=== PATIENT | female | born 2000 | race Caucasian/White ===

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

== ENCOUNTER 2024-03-14 12:33 | Outpatient (AMB) | payer BC, SELFPAY ==
[2024-03-14 12:43] VITALS: BP 120/72; PULSE 116; TEMP 36.8; O2SAT 100
--- NOTE | 2024-03-14 12:43 | AM.OFFWIN_ITS ---
Intake Vital Signs 03/14/24 12:43 Height 5 ft 2 in BP 120/72 Blood Pressure Location Lt brachial Position Sitting Pulse 116 H Pulse Source Pulse Oximeter Temp 98.2 F Temp Source Oral Pulse Oximetry (%) 100 Oxygen Delivery Method Room Air Intake Visit Reasons: sore throat, runny nose, possible Covid Intake Note: pt is here for sore throat, runny nose. 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 She states that last night she started having stomach pains and then had an episode of diarrhea and then when she woke up this morning to sore throat, developed headache and body aches. The daycare center she works at send her home and asked her to go to a medical facility and get tested for COVID. She denies any fevers or cough. She did not take any medications to try and make herself feel better. She states she does have a history of asthma but she has had no trouble breathing, or experienced any shortness of breath. She does have an inhaler if she needs one. [facility] Medical History Asthma Hyperthyroidism IIH (idiopathic intracranial hypertension) Social History Patient Tobacco Use Status: Never used Tobacco Review of Systems Const All systems reviewed & are unremarkable except as noted in HPI and below Physical Exam Vital Signs: Last Vital Signs Temp 98.2 F 03/14/24 12:43 Pulse 116 H 03/14/24 12:43 BP 120/72 03/14/24 12:43 Pulse Ox 100 03/14/24 12:43 Oxygen Delivery Method Room Air 03/14/24 12:43 Const General: cooperative, healthy appearing, comfortable and no acute distress Orientation/consciousness: patient oriented x3 Limitations: no limitations HEENT Head: Yes normal to inspection Ears: hearing grossly normal bilaterally and external ears normal General nose exam: Normal external nose present, Normal nares present and No nasal discharge present Face and sinus: Yes normal facial exam Mouth: Normal oral and palatal mucosa present and moist mucous membranes Throat: Yes tonsils normal, Yes uvula midline and Yes posterior oropharynx abnormal (Erythema) Eyes General: appearance normal, both eyes and all related structures Neck Neck: Yes normal visual inspection Resp Effort & Inspection: normal respiratory effort, able to speak in complete sentences, Actively coughing, no respiratory distress, not tachypneic, no tripod positioning and no use of accessory muscles Skin General skin exam: no rashes or lesions noted Neuro General: patient oriented x3 Extrem General: Yes normal to inspection and Yes no clubbing, cyanosis or edema Assessment & Plan Assessment & Plan (1) URI (upper respiratory infection): Code(s): J06.9 - Acute upper respiratory infection, unspecified Qualifiers: URI type: unspecified viral URI Qualified Code(s): J06.9 - Acute upper respiratory infection, unspecified Plan: Recommended taking the next 3 days off of work so patient can feel better before she returns to the daycare, if she is COVID positive we can extend that to 5 days. Recommended using [id number] medications to treat her symptoms. Plan See above Orders: Orders SARS-CoV2/FLU/RSV Today J06.9 - Acute upper respiratory infection, unspecified Medications: Discontinued cephalexin Discontinued Reason: Patient Completed Course 500 mg PO Q6H 7 days 28 caps 0RF Coding Level of Care Code New Pt Level 3 (29113) Diagnoses Viral upper respiratory tract infection J06.9 URI type: unspecified viral URI
== END 2024-03-14 13:11 | disposition home or self-care (01) ==
PROVIDERS: PCP Pediatrics; Visit Provider Physician Assistant
DX: Z13.9 Encounter for screening, unspecified (principal); J06.9 Acute upper respiratory infection, unspecified
CPT/HCPCS: 87880; 99203

== ENCOUNTER 2024-03-14 13:03 | Outpatient (REF) | payer BC, SELFPAY ==
[2024-03-14 16:47] LABS: Influenza A PCR NEGATIVE (Negative); Influenza B PCR NEGATIVE (Negative); Resp Syncy Virus RNA Qual PCR NEGATIVE (Negative); SARS COV2 PCR INHOUSE NEGATIVE (Negative)
== END 2024-03-14 13:04 | disposition home or self-care (01) ==
LOC: HO.LAB 13:03
PROVIDERS: Visit Provider Physician Assistant
DX: J06.9 Acute upper respiratory infection, unspecified (principal)
CPT/HCPCS: 0241U

== ENCOUNTER 2024-03-27 21:05 | Emergency (ER) | payer BC, SELFPAY ==
[2024-03-27 21:23] VITALS: BP 152/103; PULSE 108; RESP 18; TEMP 36.8; O2SAT 98; BMI 36.6
[2024-03-27 21:45] LABS: MANUAL DIFF FLAG NO
[2024-03-27 21:47] LABS: Basophils Percent Auto 0.3 % (0-2); Eosinophils Absolute Auto 0.1 X10*3/uL (0.0-0.4); Eosinophils Percent Auto 0.5 % (0-4); Hematocrit 37.3 % (37.0-47.0); Hemoglobin 12.8 g/dl (12.0-16.0); Imm Gran Abs Auto 0.03 X10*3/uL (0.00-0.03); Imm Gran Pct Auto 0.3 % (0.0-0.4); Lymphocytes Absolute Auto 3.7 X10*3/uL (1.2-4.9); Lymphocytes Percent Auto 33.2 % (20-40); Mean Corpuscular HGB Conc 34.3 g/dl (31.0-35.0); Mean Corpuscular Volume 84.6 fL (80.0-98.0); Mean Platelet Volume 8.7 fL (9.4-12.3); Monocytes Absolute Auto 0.9 X10*3/uL (0.1-1.2); Neutrophils Absolute Auto 6.4 x10*3/uL (2.0-8.3); Neutrophils Percent Auto 57.7 % (45-73); Platelet Count 429 X10*3/uL (160-400); Red Blood Count 4.41 X10*6/uL (4.20-5.50); Red Cell Distribution Width 12.5 % (11.0-16.0); White Blood Count 11.2 X10*3/uL (4.8-10.8)
[2024-03-27 21:50] LABS: Appearance Urine Turbid; Color Urine Dark Yellow; Glucose Urine UA Negative (Negative); Leukocyte Esterase Urine Small (1+) (Negative); Nitrite Urine Negative (Negative); Specific Gravity - Urine >= 1.030 (1.005-1.025); UMIC TRIGGER UA YES; Urine Blood Large (3+) (Negative); Urine Ketones Trace mg/dL (Negative); Urine Protein 30 (1+) mg/dL (Neg-Trace)
[2024-03-27 22:02] LABS: Alanine Aminotransferase 16 U/L (0-31); Albumin Level 4.6 g/dL (3.5-5.0); Alkaline Phosphatase 60 U/L (39-117); Anion Gap 11 (12-20); Aspartate Amino Transferase 14 U/L (5-31); Bilirubin Total 0.4 mg/dL (0.0-1.0); Blood Urea Nitrogen 6 mg/dL (9-16); Calcium 9.9 mg/dL (8.4-10.2); Carbon Dioxide 21 mmol/L (22-29); Chloride 110 mmol/L (96-108); Creatinine Clr Calc Pharmacy 135.1; Estimated Glomerular Filt Rate > 60; Glucose Random 118 mg/dL (60-115); Potassium 3.3 mmol/L (3.3-5.1); Sodium 139 mmol/L (135-145); Total Protein 7.5 g/dL (6.5-8.0)
[2024-03-27 22:19] LABS: UPreg QC Valid YES; Urine Pregnancy NEGATIVE (NEGATIVE)
[2024-03-27 22:32] LABS: Bacteria Urine Trace (None Seen); Calcium Oxalate Crystals Urine Present; Hyaline Casts Urine 0-2 /LPF (0-2); RBC Urine >20 /HPF (0-2)
[2024-03-28 00:57] VITALS: BP 145/94; PULSE 65; RESP 16; TEMP 36.8; O2SAT 100
[2024-03-28 02:00] VITALS: BP 113/63; PULSE 85; RESP 16; TEMP 36.7; O2SAT 99
[2024-03-28 03:34] VITALS: BP 131/80; PULSE 79; RESP 18; TEMP 36.7; O2SAT 99
[2024-03-28 06:00] VITALS: BP 125/72; PULSE 95; RESP 16; TEMP 36.9; O2SAT 100
--- NOTE | 2024-03-28 06:32 | ED.ABDPAIN ---
HPI - Abdominal Pain General Chief Complaint: Abdominal Pain Stated Complaint: stomach pain/constipation Time Seen by Provider: 03/28/24 06:28 Source: patient Mode of arrival: ambulatory Limitations: no limitations History of Present Illness ED Provider: Divya Santos PA-C HPI narrative: 23 yo female with history of heavy and painful menstrual cycles who presents to the ER for evaluation of lower abdominal cramping for the last 4 days along with constipation x1 week. Patient states she has had her menstrual cycle for 2 weeks now. She was seen at a [place] emergency department on Tuesday when her cramping pain started. She had lab work done and a pelvic ultrasound which she states were unremarkable. She was told to take ibuprofen for her menstrual cramping. She has been trying to follow-up with OBGYN but can not get in until she has a PCP referral, does not see her PCP until October. She reports very irregular, heavy and painful menstrual cycles. She has a Nexplanon in her left arm which she is due to get removed soon. Patient reports the cramping comes and goes. She denies any vaginal discharge. She gets nauseous when the pain is severe. No vomiting. Patient also reports she has not had a normal bowel movement in 1 week. She had very small amount after taking 4 Dulcolax yesterday. She tried to manually disimpact herself but there was no stool in her rectal vault. MD elicited complaint: abdominal pain Pertinent past history: constipation and other (Heavy menstrual cycle) Onset (ago): day(s) (4) Pain Consistency: intermittent Location: suprapubic Quality: cramping Radiation: none Exacerbating factors: movement Relieving factors: medication and rest Context: history of similar episodes Associated symptoms: nausea and constipation Treatments prior to arrival: NSAIDs Related Data Date of Last Menstrual Period: 03/14/24 Patient : No Allergies Allergy/AdvReac Type Severity Reaction Status Date / Time No Known Allergies Allergy Verified 03/27/24 21:24 Review of Systems Review of Systems Yes all other systems are reviewed and are negative [facility] Past Medical History Medical History Asthma Hyperthyroidism IIH (idiopathic intracranial hypertension) Date of Last Menstrual Period: 03/14/24 Social History Social History Patient Tobacco Use Status: Never used Tobacco Smoked in Last 30 Days: No Use of substances other than those prescribed or required for medical reasons: No Advance Directives: No Advance Directives Information Provided: No Do you have a plan to hurt others: No Plan Patient : No Physical Exam ED Vital Signs: Vital Signs - 24 hr 03/27/24 21:23 03/28/24 00:57 03/28/24 02:00 Temperature 98.2 F 98.3 F 98.0 F Pulse Rate 108 H 65 85 Respiratory Rate 18 16 16 Blood Pressure 152/103 H 145/94 H 113/63 Pulse Oximetry 98 100 99 Oxygen Delivery Method Room Air Room Air Room Air 03/28/24 03:34 03/28/24 06:00 03/28/24 08:00 Temperature 98.0 F 98.5 F 98.9 F Pulse Rate 79 95 61 Respiratory Rate 18 16 18 Blood Pressure 131/80 125/72 123/77 Pulse Oximetry 99 100 98 Oxygen Delivery Method Room Air Room Air Room Air 03/28/24 09:03 Temperature 98.9 F Pulse Rate 61 Respiratory Rate 18 Blood Pressure 123/77 Pulse Oximetry 98 Oxygen Delivery Method Room Air BMI result Body Mass Index 36.6 Appearance: Alert. Oriented X3. No acute distress. Head: normocephalic, atraumatic. Eyes: Pupils equal, round and reactive to light. ENT: Pharynx normal. No tonsillar swelling or exudate. Neck: Normal inspection. Neck supple. CVS: Normal heart rate and rhythm. Pulses normal. Respiratory: No respiratory distress. Breath sounds normal. Abdomen: Soft with mild suprapubic tenderness without rebound or guarding, normal active +BS x4. Pelvic deferred Skin: Skin warm and dry. Normal skin color. Normal skin turgor. No rashes. Extremities: No lower extremity edema. No joint swelling. Neuro/psych: Oriented X 3. No motor deficit. No sensory deficit. CN II-XII intact. Normal speech and cognition. Medical Decision Making Medical Decision Making MDM Narrative: 23-year-old female presents to the ER for evaluation of heavy vaginal bleeding, lower abdominal cramping for the last 4 days. Had recent imaging done at [place] emergency department which was unremarkable. Her lab work today is showing no anemia. Her pain is worse when she gets up and ambulates. Physical exam is reassuring, her abdomen is soft, no acute abdomen Patient was treated with bowel regimen and intramuscular ketorolac with improvement in her cramping pain. She was able to have a bowel movement. She is feeling much better. She is stable for discharge home with ongoing bowel regimen, NSAIDs and OBGYN follow-up. Differential Diagnosis Differential Diagnoses: The differential diagnosis associated with the presentation includes Dysfunctional uterine bleeding, menometrorrhagia, menorrhagia, acute blood loss anemia, endometriosis, fibroids Constipation, obstipation, doubt bowel obstruction Lab Data MDM Lab Attestation statement: I reviewed the patient's lab results. No anemia, mildly elevated chloride, glucose, platelets and white count, not clinically significant 03/27/24 21:41 03/27/24 21:41 Labs: Lab Results 03/27/24 Range/Units 21:41 WBC 11.2 H (4.8-10.8) X10*3/uL RBC 4.41 (4.20-5.50) X10*6/uL Hgb 12.8 (12.0-16.0) g/dl Hct 37.3 (37.0-47.0) % MCV 84.6 (80.0-98.0) fL MCH 29.0 (27.0-33.0) pg MCHC 34.3 (31.0-35.0) g/dl RDW 12.5 (11.0-16.0) % Plt Count 429 H (160-400) X10*3/uL MPV 8.7 L (9.4-12.3) fL Immature Gran % (Auto) 0.3 (0.0-0.4) % Neut % (Auto) 57.7 (45-73) % Lymph % (Auto) 33.2 (20-40) % [place] % (Auto) 8.0 (2-11) % Eos % (Auto) 0.5 (0-4) % Baso % (Auto) 0.3 (0-2) % Lymph # (Auto) 3.7 (1.2-4.9) X10*3/uL [place] # (Auto) 0.9 (0.1-1.2) X10*3/uL Eos # (Auto) 0.1 (0.0-0.4) X10*3/uL Baso # (Auto) 0.0 (0.0-0.2) X10*3/uL Abs Immat Gran (auto) 0.03 (0.00-0.03) X10*3/uL Absolute Neuts (auto) 6.4 (2.0-8.3) x10*3/uL Absolute Nucleated RBC 0.000 (0.0-0.012) X10*3/uL Nucleated RBC % (auto) 0.0 (0.0-0.2) /100WBC Sodium 139 (135-145) mmol/L Potassium 3.3 (3.3-5.1) mmol/L Chloride 110 H (96-108) mmol/L Carbon Dioxide 21 L (22-29) mmol/L Anion Gap 11 L (12-20) BUN 6 L (9-16) mg/dL Creatinine 0.69 (0.5-1.4) mg/dL Estim Creat Clear Calc 135.1 Estimated GFR > 60 Random Glucose 118 H (60-115) mg/dL Calcium 9.9 (8.4-10.2) mg/dL Total Bilirubin 0.4 (0.0-1.0) mg/dL AST 14 (5-31) U/L ALT 16 (0-31) U/L Alkaline Phosphatase 60 (39-117) U/L Total Protein 7.5 (6.5-8.0) g/dL Albumin 4.6 (3.5-5.0) g/dL Urine Color Dark Yellow Urine Appearance Turbid Urine pH 6.0 (5.0-9.0) Ur Specific [place] >= 1.030 H (1.005-1.025) Urine Protein 30 (1+) H (Neg-Trace) mg/dL Urine Glucose (UA) Negative (Negative) mg/dL Urine Ketones Trace (Negative) mg/dL Urine Blood Large (3+) H (Negative) Urine Nitrite Negative (Negative) Ur Leukocyte Esterase Small (1+) H (Negative) Urine RBC >20 H (0-2) /HPF Urine WBC 11-20 H (0-5) /HPF Ur Squamous Epith Cells 6-10 (0-2) /HPF Calcium Oxalate Crystal Present Urine Bacteria Trace (None Seen) Hyaline Casts 0-2 (0-2) /LPF Urine Test NEGATIVE (NEGATIVE) External Record Review External record reviewed: Prior outpatient labs Tests considered The following testing was considered but not selected: Considered pelvic ultrasound however this was recently done an outside hospital. Considered CT scan however she is able to have bowel movement and there was no evidence of obstruction on exam Prescription Management I considered prescription management with: Pain Medication Chronic Conditions Patient?s care impacted by: Other (Abnormal uterine bleeding) Medications Administered Discontinued Medications Generic Name Dose Route Start Last Admin Trade Name Freq PRN Reason Stop Dose Admin Acetaminophen 975 mg 03/28/24 06:45 03/28/24 06:56 Acetaminophen 325 Mg Tablet PO 03/28/24 06:46 975 mg ONCE ONE Administration Bisacodyl 10 mg 03/28/24 06:44 03/28/24 06:57 Bisacodyl 10 Mg Supp.Rect [place] 03/28/24 06:45 10 mg ONCE ONE Administration Docusate Sodium 200 mg 03/28/24 06:45 03/28/24 06:56 Docusate Sodium 100 Mg Capsule PO 03/28/24 06:46 200 mg ONCE ONE Administration Ketorolac Tromethamine 30 mg 03/28/24 06:44 03/28/24 06:57 Ketorolac Tromethamine 30 Mg/Ml Vial IM 03/28/24 06:45 30 mg ONCE ONE Administration Magnesium Hydroxide 30 ml 03/28/24 06:44 03/28/24 06:57 Milk Of Magnesia 30 Ml Oral.Susp PO 03/28/24 06:45 30 ml ONCE ONE Administration Simethicone 160 mg 03/28/24 06:45 03/28/24 06:56 Simethicone 80 Mg Tab.Chew PO 03/28/24 06:46 160 mg ONCE ONE Administration Critical Care Time Critical Care Time Critical Care Time: No Discharge Plan Discharge Clinical Impression: Menometrorrhagia Constipation Qualifiers: Constipation type: other constipation type Qualified Code(s): K59.09 - Other constipation Patient Disposition: Home, Self-Care Instructions: Constipation (DC), Menorrhagia (ED) Additional Instructions: your lab workup did not show any anemia recommend continuing ibuprofen 600 mg every 6-8 hours as needed for pain and cramping you need to follow up with G[facility] for further evaluation and treatment - call for an appointment recommend over the counter Miralax, Senna and Colace per package instruction for constipation follow up with your doctor If you develop new or worsening symptoms call [phone] or come back to the ER for further evaluation. Referrals: Sergio Hatch MD [Physician] - Stand Alone Forms: Work/School Release Interventions: ED Discharge Assessment Last Done: 03/28/24 09:03 Print Language: Guamanian
[2024-03-28] MEDS: Docusate Sodium 100 MG CAPSULE 200 MG PO (06:56)
[2024-03-28] MEDS: Simethicone 80 MG TAB.CHEW 160 MG PO (06:56)
[2024-03-28] MEDS: Acetaminophen 325 MG TABLET 975 MG PO (06:56)
[2024-03-28] MEDS: Ketorolac Tromethamine 30 MG/ML VIAL IM (06:57)
[2024-03-28] MEDS: Milk of Magnesia 30 ML ORAL.SUSP PO (06:57)
[2024-03-28] MEDS: bisacodyL 10 MG SUPP.RECT PR (06:57)
--- NOTE | 2024-03-28 07:28 | PC.NURSE ---
this RN resumed care of pt at 0645. a&ox4. vss and up to date. pt presents to the ED w/ nonradiating lower abd pain x 1 week. pt reports not being able to have a BM until coming in to ED. pt denies any nausea/vomiting. previous RN administered medication to help w/ sx. pt verbalizes decrease in abd pain - rating it a 2/10. pt verbalizes being able to have a BM post medication administration. pt reports not solid/formed stool but more so diarrhea. pt verbalizes feeling much better after BM. plan of care ongoing. call romano placed within reach.
[2024-03-28 08:00] VITALS: BP 123/77; PULSE 61; RESP 18; TEMP 37.2; O2SAT 98
[2024-03-28 09:03] VITALS: BP 123/77; PULSE 61; RESP 18; TEMP 37.2; O2SAT 98
== END 2024-03-28 09:03 | disposition home or self-care (01) ==
PROVIDERS: Emergency Provider Emergency Medicine
DX: N92.1 Excessive and frequent menstruation with irregular cycle (principal); K59.09 Other constipation; R10.2 Pelvic and perineal pain; R11.0 Nausea; Z79.899 Other long term (current) drug therapy
CPT/HCPCS: 36415; 80053; 81001; 81025; 85025; 96372; 99284; 99285; J1885

== ENCOUNTER 2024-10-31 12:23 | Outpatient (AMB) | payer BC, SELFPAY ==
[2024-10-31 12:37] VITALS: BP 120/74; PULSE 92; O2SAT 98; BMI 29.4
--- NOTE | 2024-10-31 12:37 | A.OFFPC_ITS ---
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: No Accompanied by: Self / Same As Patient Allergies No Known Allergies Allergy (Verified 10/31/24 13:06) Medication List - Last Reconciled 10/31/24 by Juan David Cuevas [facility] albuterol sulfate 90 mcg/actuation 2 puffs inhalation Q6H PRN Tobacco use date assessed: 10/31/24 Dental Screening Dental Screen Date: 10/31/24 Did you have a dental visit in the last 12 months?: Yes Did you have a dental problem in the last 6 months where you did not have access to dental care?: No Was dental information given to patient?: Patient has dentist 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 The patient's medical history includes significant weight loss over the last year, which she attributes to increased physical activity and careful dietary management. Notably, she has a history of anxiety and depression but currently denies any symptoms suggesting suicidal or homicidal ideation. Her cardiological examination revealed a systolic heart murmur, leading to plans for further evaluation. She reports no pulmonary or gastrointestinal complaints. The patient identified her need for a referral to a marketing segment manager for Pap smear screenings. At the moment, she is categorized under obesity. Health Maintenance - Referral for gynecological evaluation for Pap smear screening - Weight management through diet and exe rcise - Behavioral health follow-up for anxiet y and depression management Social History - Increased physical activity - Dietary changes aimed at weight manage ment Review of Systems - Cardiovascular: Reports systolic murmu r but denies chest pain - Gastrointestinal: Denies abdominal luis antonio n, blood in stool, constipation, diarrhea - Respiratory: Denies shortness of breat h - Psychological: Reports history of anxi ety and depression, denies suicidal or homicidal ideation Physical Exam General: Cooperative, healthy appearing, comfortable, no acute distress and well developed. Obese. Orientation: Patient oriented x3 Limitations: No limitations Head: Normal to inspection Ears: Hearing grossly normal bilaterally Nose: Normal external nose present Face and sinus: Normal facial exam Eyes: Appearance normal, both eyes and all related structures Neck: Normal visual inspection and Yes full ROM Respiratory: Normal respiratory effort and able to speak in complete sentences. Clear to auscultation bilaterally Cardiovascular: Systolic murmur noted. Normal S1 and S2 GI: Normal to inspection. Soft to palpation and nontender Skin: No rashes or lesions noted Neuro: Patient oriented x3 Extremities: Normal to inspection Results Plan An echocardiogram is planned to assess the detected systolic heart murmur. Continuation of the current dietary and exercise regimen is encouraged to support her notable weight loss, while adherence to mental health support for anxiety and depression remains essential. A referral for a gynecological consult for Pap smear screening will be arranged. Discussion Notes I discussed with the patient the need for an echocardiogram due to the detection of a systolic heart murmur during examination and explained that it is important to determine if further cardiological evaluation or intervention is necessary. The value of ongoing lifestyle modifications, such as regular physical activity and balanced diet, contributing to her weight management and general health improvement was emphasized. We reviewed her mental health status and affirmed the necessity of behavioral health follow-up for anxiety and depression, ensuring she receives comprehensive support. The need for timely Pap smear screening for gynecological health was addressed, and a referral will be made after our discussion. Patient Instructions - Schedule an echocardiogram as advised - Continue current dietary and physical activity regimen for weight management - Monitor mental health and await contac t from behavioral health personnel for support - Follow up on the referral for a gyneco logical consultation regarding Pap smears PFSH Medical History Hyperthyroidism Asthma IIH (idiopathic intracranial hypertension) Surgical History H/O tooth extraction No pertinent past surgical history Family History Mother Mental health problem Substance abuse Father Mental health problem Social History Housing: House Alcohol intake: current Alcohol intake frequency: a few times a month Patient Tobacco Use Status: Never used Tobacco Tobacco use type: Smokeless Tobacco e-Cigarette/Vaping Use: Currently Using Substance Use Type: Marijuana service: No Current occupational status: employed and student Current occupational exposures/hazards: No Cognitive needs: No Hearing needs: No Vision needs: Yes (contacts/glasses) Questionnaire PHQ-9 Over the last 2 weeks, how often have you been bothered by any of the following problems? 1. Little interest or pleasure in doing things: more than half the days 2. Feeling down, depressed, or hopeless: more than half the days 3. Trouble falling or staying asleep, or sleeping too much: nearly every day 4. Feeling tired or having little energy: more than half the days 5. Poor appetite or overeating: more than half the days 6. Feeling bad about yourself - or that you are a failure or have let yourself or your family down: several days 7. Trouble concentrating on things, such as reading the newspaper or watching television: several days 8. Moving or speaking so slowly that other people could have noticed. Or the opposite - being so fidgety or restless that you have been moving around a lot more than usual: several days 9. Thoughts that you would be better off or of hurting yourself in some way: not at all Total score: 14 Depression Screening Interpretation: Positive (denies any si or hi, will have BH (lynette) speak with pt) Depression Screening Done: Yes 35618 - PHQ-9 Billing: Yes Source: Developed by Drs. Mohsen Jones, Juana Skinner, Monty Mcgee and colleagues, with an educational sarah beth from [employer]. Thrive Questionnaire Date Thrive assessed: 10/31/24 I am a: Patient What is your living situation today?: I have a steady place to live Within the past 12 months, did the food you bought not last and you didn't have the money to get more?: Never true Within the past 12 months, did you worry whether your food would run out before you got money to buy more?: Sometimes True Do you have trouble paying for medicines?: No Do you have trouble getting transportation to medical appointments?: No Do you have trouble paying your heating and electricity bill?: No Do you have trouble taking care of your child, family member or friend?: No Do you have trouble with day-to-day activities such as bathing, preparing meals, shopping, managing finances, etc.?: No Are you currently unemployed and looking for a job?: No Are you interested in more education?: No Please select the resources that you would like help with: None Currently or been in a relationship where the following occur: No concerns reported THRIVE Score: 1 AUDIT C Alcohol Use Questionnaire (AUDIT-C) 1. How often do you have a drink containing alcohol?: 2-4 times a month 2. How many drinks containing alcohol do you have on a typical day when you are drinking?: 3 or 4 3. How often do you have six or more drinks on one occasion?: Never Total Score: 3 Score Reviewed/Action Taken: Yes KARYN-7 AMB Questionnaire KARYN-7 Date KARYN - 7 assessed: 10/31/24 Feeling nervous, anxious, or on edge: 2 = More than half the days Not being able to stop or control worryin = Nearly every day Worrying too much about different things: 3 = Nearly every day Trouble relaxin = Nearly every day Being so restless that it is hard to sit still: 2 = More than half the days Becoming easily annoyed or irritable: 2 = More than half the days Feeling afraid as if something awful might happen: 1 = Several days Total KARYN-7 score (0-4 normal; 5-9 mild; 10-14 moderate; 15-21 severe): 16 Source: Developed by Drs. Mohsen Jones, Juana Skinner, Monty Mcgee and colleagues, with an educational sarah beth from [employer]. KARYN-7 Assessment Billing KARYN-7 Assessment Tool: KARYN-7 Assessment 23755 (will have BH meet with pt) Physical exam (Primary Care) Vital Signs: Last Vital Signs Pulse 92 10/31/24 12:37 BP 120/74 10/31/24 12:37 Pulse Ox 98 10/31/24 12:37 BMI result Body Mass Index 29.4 Tobacco/Smoking Status: Tobacco use Status Tobacco use date assessed 10/31/24 10/31/24 12:38 Patient Tobacco Use Status Never used Tobacco 10/31/24 12:46 Tobacco use type Smokeless Tobacco 10/31/24 12:46 e-Cigarette/Vaping Use Currently Using 10/31/24 12:49 PHQ-9: PHQ-9 Score PHQ-9: Total score 14 10/31/24 12:38 Depression Screening Interpretation: Positive (denies any si or hi, will have BH (lynette) speak with pt) Thrive Assessment: Date of Thrive Assessment Date Thrive assessed 10/31/24 10/31/24 12:38 Currently or been in a relationship where the following occur: No concerns reported Coding Level of Care Code New Pt Prev Care 18-39yr(42480 Diagnoses Physical exam Z00.00 Screening for cervical cancer Z12.[address] Z97.5 Systolic murmur R01.1 Additional Codes PHQ-9 - 97678 - PHQ-9 Billing: Yes ([id number]) KARYN-7 Assessment Billing - KARYN-7 Assessment Tool: KARYN-7 Assessment 25401 ([id number]) Assessment & Plan Assessment & Plan (1) Physical exam: Code(s): Z00.00 - Encounter for general adult medical examination without abnormal findings Category: Medical (2) Screening for cervical cancer: Code(s): Z12.4 - Encounter for screening for malignant neoplasm of cervix Category: Medical (3) Nexplanon in place: Code(s): Z97.5 - Presence of (intrauterine) contraceptive device Category: Social Hx (4) Systolic murmur: Code(s): R01.1 - Cardiac murmur, unspecified Category: Medical Plan . Orders: Orders Complete Blood Count Auto Diff Today Z00.00 - Encounter for general adult medical examination without abnormal findings Comprehensive [employer] Panel Fast Today Z00.00 - Encounter for general adult medical examination without abnormal findings TSH reflex Free T4 Today Z00.00 - Encounter for general adult medical examination without abnormal findings UA CC w/rflx Micro + Cult Today Z00.00 - Encounter for general adult medical examination without abnormal findings CA echo transthoracic complete Today R01.1 - Cardiac murmur, unspecified Lipid Panel Today Z00.00 - Encounter for general adult medical examination without abnormal findings Referrals TRUCK CLEANER Referral Z12.4 - Encounter for screening for malignant neoplasm of cervix, Z97.5 - Presence of (intrauterine) contraceptive device
--- OUTSIDE RECORDS SUMMARY | 2024-10-31 14:45 | XMS_ITS | Encounter Summary ---
Author Organization [facility] Address [address] [place] [id number] Phone Care Team Providers Care Brim Plater Name Role Phone Provider, Norma ANSARI Primary Care Provider [phone] Reason for Visit * Reason Comments Med Refill Encounter Details Date Type Department Care Team (Late st Contact Info) Description 02/19/2019 Refill [facility] - [address] [id number] Barbara Marx MD Primary dysmenorrhea Social History Tobacco Use Types Packs/Day Years Used Date Smoking Tobacco: Passive Smo ke Exposure - Never Smoker Smokeless Tobacco: Never Comments:Never smoker Comments No Sex and Gender Information Value Date Recorded Sex Assigned at Female 07/28/2020 5:34 PM EST Legal Sex Female 6:37 PM EDT Gender Identity Female 07/28/2020 8:40 AM EST Sexual Orientation Straight 07/09/2019 5: 47 PM EST documented as of this encounter Miscellaneous Notes * Telephone Encounter - Nadja Funk LPN - 02/20/2019 9:46 AM EDT No longer taking ocp documented in this encounter Plan of Treatment Not on file documented as of this encounter Visit Diagnoses Diagnosis Primary dysmenorrhea Dysmenorrhea documented in this encounter Care Teams Brim Plater Relationship Specialty Start Date End Date Provider, MD Norma [address] [place] [id number] PCP - General Pediatrics 03/16/23 12/07/23 Tutu Art APRN FILLER ROOM ATTENDANT BS MSN Consulting Physician Nephrology 07/08/21 documented as of this encounter
--- OUTSIDE RECORDS SUMMARY | 2024-10-31 14:45 | XMS_ITS | Encounter Summary ---
Author Organization [facility] Address [address] [place] [address] Phone Care Team Providers Care Cellular Plastics Cutter Name Role Phone Provider, [facility] Primary Care Provider [phone] Reason for Visit * Reason Comments Med Refill Encounter Details Date Type Department Care Team (Late st Contact Info) Description 12/22/2019 Refill [facility] - [address] [address] Barbara Marx MD 193 [facility] [address] [place] [address] Depression with anxiety Social History Tobacco Use Types Packs/Day Years Used Date Smoking Tobacco: Passive Smo ke Exposure - Never Smoker Smokeless Tobacco: Never Comments:Never smoker Hunger/Food Answer Date Recorded No 07/09/2019 Stable Housing Answer Date Recorded No 08/09/2019 Transportation Concerns Answer Date Rec orded No 07/09/2019 Hazards in Home Answer Date Recorded No 07/09/2019 Financing Utilities Answer Date Recorde d No 07/09/2019 Safety at Home Answer Date Recorded No 07/09/2019 Outside Support Answer Date Recorded No 07/09/2019 Understanding Health Concerns Answer Da te Recorded No 07/09/2019 Financing Health Concerns Answer Date R ecorded No 07/09/2019 Missing School or Work Answer Date Harshal rded No 07/09/2019 Comments No Sex and Gender Information Value Date Recorded Sex Assigned at Female 07/28/2020 5:34 PM EST Legal Sex Female 6:37 PM EDT Gender Identity Female 07/28/2020 8:40 AM EST Sexual Orientation Straight 07/09/2019 5: 47 PM EST documented as of this encounter Miscellaneous Notes * Telephone Encounter - Paulette Hinton LPN - 12/24/2019 8:34 AM EDT Refill request for Lexapro refused, has refill remaining/JOD documented in this encounter Plan of Treatment Not on file documented as of this encounter Visit Diagnoses Diagnosis Depression with anxiety Dysthymic disorder documented in this encounter Care Teams Cellular Plastics Cutter Relationship Specialty Start Date End Date Provider, MD Norma [address] [place] [phone] PCP - General Pediatrics 03/16/23 12/07/23 Tutu Art APRN BUFFET SERVER BS MSN Consulting Physician Nephrology 07/08/21 documented as of this encounter
--- OUTSIDE RECORDS SUMMARY | 2024-10-31 14:45 | XMS_ITS | Encounter Summary ---
Author Organization [facility] Address [address] [place] [address] Phone Care Team Providers Care Staff Registered Nurse Name Role Phone Provider, [facility] Primary Care Provider [phone] Reason for Visit * Reason Comments Med Refill Encounter Details Date Type Department Care Team ([facility] st Contact Info) Description 04/01/2020 Refill [facility] - [address] [place] [address] Barbara Marx MD 193 [facility] [address] [place] [address] Depression with anxiety; Hypercholesterolemia; Chronic migraine without aura without status migrainosus, not intractable Social History Tobacco Use Types Packs/Day Years [...] PM EST documented as of this encounter Plan of Treatment Not on file documented as of this encounter Visit Diagnoses Diagnosis Depression with anxiety Dysthymic disorder Hypercholesterolemia Pure hypercholesterolemia Chronic migraine without aura without status migrainosus, not intractable documented in this encounter Care Teams Staff Registered Nurse Relationship Specialty Start Date End Date Provider, MD Norma [address] [place] [phone] PCP - General Pediatrics 03/16/23 12/07/23 Tutu Art APRN SLUBBER MACHINE OPERATOR BS MSN Consulting Physician Nephrology 07/08/21 documented as of this encounter
--- OUTSIDE RECORDS SUMMARY | 2024-10-31 14:45 | XMS_ITS | Encounter Summary ---
Author Organization [facility] Address [address] [place] [address] Phone Care Team Providers Care Pack Worker Name Role Phone Provider, Norma ANSARI Primary Care Provider [phone] Reason for Visit * Reason Onset Date Comments Med Refill Med Refill 02/20/2020 Encounter Details Date Type Department Care Team (Late st Contact Info) Description 02/19/2020 Refill [facility] - [address] [address] Barbara Marx MD 193 [facility] [address] [place] [address] Seasonal allergic rhinitis due to pollen; Moderate persistent asthma without complication Social History Tobacco Use Types Packs/Day Years [...] encounter Miscellaneous Notes * Telephone Encounter - Olga Lidia Franklin RN - 02/20/2020 1:33 PM EDT Call to patient, she will contact [facility] new practice to fix this. Advised patient Rx request is comingto wrong location. Call to pharmacy and advised them as well but it is nothing they can fix on their end. Patient aware it is being sent to wrong location and cannot be filled here. documented in this encounter Plan of Treatment Not on file documented as of this encounter Visit Diagnoses Diagnosis Seasonal allergic rhinitis due to pollen Moderate persistent asthma without complication documented in this encounter Care Teams Pack Worker Relationship Specialty Start Date End Date Provider, MD Norma [address] [place] [phone] PCP - General Pediatrics 03/16/23 12/07/23 Tutu Art APRN SHANK MAKER BS MSN Consulting Physician Nephrology 07/08/21 documented as of this encounter
--- OUTSIDE RECORDS SUMMARY | 2024-10-31 14:45 | XMS_ITS | Encounter Summary ---
Author Organization [facility] Address [address] [place] [address] Phone Care Team Providers Care Award Machine Operator Name Role Phone Provider, [facility] Primary Care Provider [phone] Reason for Visit * Reason Comments Med Refill Encounter Details Date Type Department Care Team (Late st Contact Info) Description 03/19/2020 Refill [facility] - [address] [address] Barbara Marx MD 193 [facility] [address] [place] [address] Sleep difficulties Social History Tobacco Use Types Packs/Day Years [...] Telephone Encounter - Paulette Hinton LPN - 03/19/2020 8:29 AM EDT Refill request for trazodone. Last PE 07/09/19, last FU 01/07/20, has pending FU 03/31/20/DELMIS documented in this encounter Plan of Treatment Not on file documented as of this encounter Visit Diagnoses Diagnosis Sleep difficulties documented in this encounter Care Teams Award Machine Operator Relationship Specialty Start Date End Date Provider, MD Norma [address] [place] [phone] PCP - General Pediatrics 03/16/23 12/07/23 Tutu Art APRN POKER IN BS MSN Consulting Physician Nephrology 07/08/21 documented as of this encounter
--- OUTSIDE RECORDS SUMMARY | 2024-10-31 14:45 | XMS_ITS | Encounter Summary ---
Author Organization [facility] Address [address] [place] [address] Phone Care Team Providers Care Board Certified Family Physician Name Role Phone Provider, [facility] Primary Care Provider [phone] Reason for Visit * Reason Comments Med Refill Encounter Details Date Type Department Care Team (Late st Contact Info) Description 11/03/2019 Refill [facility] - [address] [address] Barbara Marx MD 193 [facility] [address] [place] [address] Sleep difficulties Social History Tobacco Use Types [...] encounter Miscellaneous Notes * Telephone Encounter - Mary Finn MA - 11/07/2019 9:31 AM EDT Called home number and left message requesting a call back * Telephone Encounter - Barbara Marx MD - 11/05/2019 12:31 PM EDT Refill sent but would like to do a VV with this pt for depression f/up as I have not seen her since07/2019. Was hoping she would be managed by psych by now, soul like to check in with family. She does not seen to be on MyChart yet. Thanks! * Telephone Encounter - Shantell Soria LPN - 11/05/2019 10:33 AM EDT Needs refill on Trazodone 50mg tabs. Last pe 07/26 documented in this encounter Plan of Treatment Not on file documented as of this encounter Visit Diagnoses Diagnosis Sleep difficulties documented in this encounter Care Teams Board Certified Family Physician Relationship Specialty Start Date End Date Provider, MD Norma [address] [place] [phone] PCP - General Pediatrics 03/16/23 12/07/23 Tutu Art APRN COUTURE DRESSMAKER BS MSN Consulting Physician Nephrology 07/08/21 documented as of this encounter
--- OUTSIDE RECORDS SUMMARY | 2024-10-31 14:45 | XMS_ITS | Encounter Summary ---
Author Organization [facility] Address [address] [place] [address] Phone Care Team Providers Care Commercial Designer Name Role Phone Provider, [facility] Primary Care Provider [phone] Reason for Visit * Reason Comments Med Refill Encounter Details Date Type Department Care Team ([facility] st Contact Info) Description 12/01/2019 Refill [facility] - [address] [place] [address] Barbara Marx MD 193 [facility] [address] [place] [address] Mood disorder of depressed type; Moderate persistent asthma without complication Social History [...] as of this encounter Visit Diagnoses Diagnosis Mood disorder of depressed type Moderate persistent asthma without complication documented in this encounter Care Teams Commercial Designer Relationship Specialty Start Date End Date Provider, MD Norma [address] [place] [phone] PCP - General Pediatrics 03/16/23 12/07/23 Tutu Art APRN MANAGER OF PHARMACY BS MSN Consulting Physician Nephrology 07/08/21 documented as of this encounter
--- OUTSIDE RECORDS SUMMARY | 2024-10-31 14:45 | XMS_ITS | Encounter Summary ---
Author Organization [facility] Address [address] [place] [address] Phone Care Team Providers Care Fisher Pot Name Role Phone Provider, [facility] Primary Care Provider [phone] Reason for Visit * Reason Onset Date Comments Med Refill Med Refill 02/20/2020 Encounter Details Date Type Department Care Team (Late st Contact Info) Description 02/20/2020 Refill [facility] [place] [address] [place] [address] Bee Rivas MD [address] [place] [address] Moderate persistent asthma without complication Social History [...] Telephone Encounter - Paulette Hinton LPN - 02/20/2020 8:51 AM EDT Refill request for Ventolin refused, script sent on 02/07/20Alireza documented in this encounter Plan of Treatment Not on file documented as of this encounter Visit Diagnoses Diagnosis Moderate persistent asthma without complication documented in this encounter Care Teams Fisher Pot Relationship Specialty Start Date End Date Provider, MD Norma [address] [place] [phone] PCP - General Pediatrics 03/16/23 12/07/23 Tutu Art APRN ETHYL BLENDER BS MSN Consulting Physician Nephrology 07/08/21 documented as of this encounter
--- OUTSIDE RECORDS SUMMARY | 2024-10-31 14:45 | XMS_ITS | Encounter Summary ---
Author Organization [facility] Address [address] [place] [address] Phone Care Team Providers Care Physical Therapy Aide Name Role Phone Provider, [facility] Primary Care Provider [phone] Reason for Visit * Reason Comments Med Refill Encounter Details Date Type Department Care Team (Late st Contact Info) Description 02/12/2020 Refill [facility] - [address] [address] Barbara Marx MD 193 [facility] [address] [place] [address] Seasonal allergic rhinitis due to pollen; Moderate [...] Franklin RN - 02/20/2020 1:33 PM EDT Second request came today. Called and advised pharmacy, it is nothing they can change on their end.Call to patient and discussed. She will contact PCP at new practice to have this changed. documented in this encounter Plan of Treatment Not on file documented as of this encounter Visit Diagnoses Diagnosis Seasonal allergic rhinitis due to pollen Moderate persistent asthma without complication documented in this encounter Care Teams Physical Therapy Aide Relationship Specialty Start Date End Date Provider, MD Norma [address] [place] [phone] PCP - General Pediatrics 03/16/23 12/07/23 Tutu Art APRN PATIENT ATTENDANT BS MSN Consulting Physician Nephrology 07/08/21 documented as of this encounter
--- OUTSIDE RECORDS SUMMARY | 2024-10-31 14:46 | XMS_ITS | Encounter Summary ---
Author Organization [facility] Address [address] [place] [address] Phone Care Team Providers Care Parking Meter Installer Name Role Phone Provider, [facility] Primary Care Provider [phone] Reason for Visit * Reason Comments Med Refill Encounter Details Date Type Department Care Team ([facility] st Contact Info) Description 05/12/2020 Refill [facility] - [address] [address] Barbara Marx MD 193 [facility] [address] [place] [address] Sleep difficulties Social History Tobacco Use Types Packs/Day Years Used Date Smoking Tobacco: Passive Smo ke Exposure - Never Smoker Smokeless Tobacco: Never Comments:Never smoker Hunger/Food Answer Date Recorded No 05/02/2020 Stable Housing Answer Date Recorded No 05/02/2020 Transportation Concerns Answer Date Rec orded No 05/02/2020 Hazards in Home Answer Date Recorded No [...] difficulties documented in this encounter Care Teams Parking Meter Installer Relationship Specialty Start Date End Date Provider, MD Norma [address] [place] [phone] PCP - General Pediatrics 03/16/23 12/07/23 Tutu Art APRN VARNISHER BS MSN Consulting Physician Nephrology 07/08/21 documented as of this encounter
--- OUTSIDE RECORDS SUMMARY | 2024-10-31 14:46 | XMS_ITS | Encounter Summary ---
Author Organization [facility] Address [address] [place] [address] Phone Care Team Providers Care Envelope Patternmaker Name Role Phone Provider, Norma ANSARI Primary Care Provider [phone] Reason for Visit * Reason Comments Med Refill Encounter Details Date Type Department Care Team (Late st Contact Info) Description 02/20/2019 Refill [facility] - [address] [address] Barbara Marx MD Mood disorder of depressed type Social History Tobacco Use Types Packs/Day Years [...] Encounter - Nadja Funk LPN - 02/20/2019 4:17 PM EDT D/C sertraline , now on prozac documented in this encounter Plan of Treatment Not on file documented as of this encounter Visit Diagnoses Diagnosis Mood disorder of depressed type documented in this encounter Care Teams Envelope Patternmaker Relationship Specialty Start Date End Date Provider, MD Norma [address] [place] [phone] PCP - General Pediatrics 03/16/23 12/07/23 Tutu Art APRN FASHION DIRECTOR PARTY PLAN SALES BS MSN Consulting Physician Nephrology 07/08/21 documented as of this encounter
--- OUTSIDE RECORDS SUMMARY | 2024-10-31 14:46 | XMS_ITS | Encounter Summary ---
Author Organization [facility] Address [address] [place] [address] Phone Care Team Providers Care Fusion Analyst Name Role Phone Provider, Norma ANSARI Primary Care Provider [phone] Reason for Visit * Reason Comments Med Refill Encounter Details Date Type Department Care Team ([facility] st Contact Info) Description 05/27/2021 Refill [facility] - [address] [address] Barbara Marx MD 193 [facility] [place] [address] Depression with anxiety Social History Tobacco Use Types Packs/Day Years Used Date Smoking Tobacco: Passive Smo ke Exposure - Never Smoker Smokeless Tobacco: Never Comments:Never smoker Hunger/Food Answer Date Recorded In the last 12 months, did y ou or your family ever eat less than you felt you should because there wasn't enough money for food? No 07/28/2020 Stable Housing Answer Date Recorded Are you worried that in the next 2 months you may not have stable housing? No 07/28/2020 Transportation Concerns Answer Date Rec orded In the last 12 months, have you or your family ever had to go without healthcare because you didn't have a way to get there? No 07/28/2020 Hazards in Home Answer Date Recorded Think about the place you li ve. Do you have problems with any of the following? Pests (mice or roaches), mold, no/not working smoke detectors, water leaks, no window guards. No 2019 Financing Utilities Answer Date Recorde d In the last 12 months, has t he electric, gas, oil, or water company threatened to shut off your services in your home? No 07/28/2020 Safety at Home Answer Date Recorded Are you or your family worried about feeling saf e in your home? No 07/28/2020 Outside Support Answer Date Recorded Do you feel that you need mo re support from other people or programs to help you care for yourself or your family? No 07/28/2020 Understanding Health Concerns Answer Da te Recorded Do you need help understandi ng your or your child's healthcare needs (diagnosis, medications, plan, etc.)? No 07/28/2020 Financing Health Concerns Answer Date R ecorded In the last 12 months, was t here a time when your child needed to see a doctor or get medications or supplies but could not because of cost? No 07/28/2020 Missing School or Work Answer Date Harshal rded Did you or your child miss s chool or work because of a health problem that could have been avoided? No 07/28/2020 Comments No Sex and Gender Information Value Date Recorded Sex Assigned at Female 07/28/2020 5:34 PM EST Legal Sex Female 6:37 PM EDT Gender Identity Female 07/28/2020 8:40 AM EST Sexual Orientation Straight 07/09/2019 5: 47 PM EST documented as of this encounter Miscellaneous Notes * Telephone Encounter - Barbara Marx MD - 05/28/2021 6:55 PM EDT Pt with med visit tomorrow, so no refill until then as rx might change * Telephone Encounter - Vaishali Anaya LPN - 05/27/2021 12:02 PM EDT Pharm requesting refill escitalopram 20 mg. EH documented in this encounter Plan of Treatment Not on file documented as of this encounter Visit Diagnoses Diagnosis Depression with anxiety Dysthymic disorder documented in this encounter Care Teams Fusion Analyst Relationship Specialty Start Date End Date Provider, MD Norma [address] [place] [phone] PCP - General Pediatrics 03/16/23 12/07/23 Tutu Art APRN CAPITAL PROJECT ENGINEER BS MSN Consulting Physician Nephrology 07/08/21 documented as of this encounter
--- OUTSIDE RECORDS SUMMARY | 2024-10-31 14:46 | XMS_ITS | Encounter Summary ---
Author Organization [facility] Address [address] [place] [address] Phone Care Team Providers Care Assembly Line Inspector Name Role Phone Provider, Norma ANSARI Primary Care Provider [phone] Encounter Details Date Type Department Care Team (Late st Contact Info) Description 03/09/2010 Documentation [facility] Family Medicine [address] [place] [address] Family Medicine, Physician [address] [place] [address] Social History Tobacco Use Types Packs/Day Years Used Date Smoking Tobacco: Never Assessed Comments Unknown Sex and Gender Information Value Date Recorded Sex Assigned at Female 07/28/2020 5:34 PM EST Legal Sex Female 6:37 PM EDT Gender Identity Female 07/28/2020 8:40 AM EST Sexual Orientation Straight 07/09/2019 5: 47 PM EST documented as of this encounter Plan of Treatment Not on file documented as of this encounter Visit Diagnoses Not on filedocumented in this encounter Care Teams Assembly Line Inspector Relationship Specialty Start Date End Date Provider, MD Norma [address] [place] [phone] PCP - General Pediatrics 03/16/23 12/07/23 Tutu Art APRN AUTO VINYL TOP INSTALLER BS MSN Consulting Physician Nephrology 07/08/21 documented as of this encounter
--- OUTSIDE RECORDS SUMMARY | 2024-10-31 14:46 | XMS_ITS | Encounter Summary ---
Author Organization [facility] Address [address] [place] [address] Phone Care Team Providers Care Rubble Placer Name Role Phone Provider, [facility] Primary Care Provider [phone] Reason for Visit * Reason Comments Med Refill Encounter Details Date Type Department Care Team ([facility] st Contact Info) Description 10/31/2020 Refill [facility] - [address] [address] Barbara Marx MD 193 [facility] [place] [address] Chronic migraine without aura without status migrainosus, [...] Telephone Encounter - Barbara Marx MD - 10/31/2020 7:36 PM EDT Changed to single 50 mg tab * Telephone Encounter - Paulette Hinton LPN - 10/31/2020 2:58 PM EDT Arlen is taking 2 tabs (50mg) * Telephone Encounter - Barbara Marx MD - 10/31/2020 12:46 PM EDT Please call pt and find out if she went up to the full 2 tab=50 mg dose of she stayed at the singletab =25mg starting dose, so I can refill appropriately and remind her of our f/up appointment on 11/10. Thanks * Telephone Encounter - Paulette Hinton LPN - 10/31/2020 7:53 AM EDT The pharmacy faxed a refill for amitriptyline. ? Directions. Last PE 07/28/20, last FU 10/13/20/DELMIS documented in this encounter Plan of Treatment Not on file documented as of this encounter Visit Diagnoses Diagnosis Chronic migraine without aura without status migrainosus, not intractable documented in this encounter Care Teams Rubble Placer Relationship Specialty Start Date End Date Provider, MD Norma [address] [place] [phone] PCP - General Pediatrics 03/16/23 12/07/23 Tutu Art APRN DIRECTOR OF SEARCH ENGINE OPTIMIZATION BS MSN Consulting Physician Nephrology 07/08/21 documented as of this encounter
--- OUTSIDE RECORDS SUMMARY | 2024-10-31 14:46 | XMS_ITS | Encounter Summary ---
Author Organization [facility] Address [address] [place] [address] Phone Care Team Providers Care Teacher Physically Impaired Name Role Phone Provider, Norma ANSARI Primary Care Provider [phone] Encounter Details Date Type Department Care Team (Late st Contact Info) Description 03/09/2010 Documentation [facility] Family Medicine [address] [place] [address] Family Medicine, Physician [address] [place] [address] Social History Tobacco Use Types Packs/Day Years [...] on filedocumented in this encounter Care Teams Teacher Physically Impaired Relationship Specialty Start Date End Date Provider, MD Norma [address] [place] [phone] PCP - General Pediatrics 03/16/23 12/07/23 Tutu Art APRN ANIMAL PARK CODE ENFORCEMENT OFFICER BS MSN Consulting Physician Nephrology 07/08/21 documented as of this encounter
--- OUTSIDE RECORDS SUMMARY | 2024-10-31 14:46 | XMS_ITS | Encounter Summary ---
Author Organization [facility] Address [address] [place] [phone] Phone Care Team Providers Care Laborer [employer] Name Role Phone Provider, Norma ANSARI Primary Care Provider 1959 Reason for Visit * Reason Comments Med Refill Encounter Details Date Type Department Care Team ([facility] st Contact Info) Description 04/27/2021 Refill [facility] [address] [id number] Barbara Marx MD [address] [facility] [address] [place] [address] Depression with anxiety Social History Tobacco Use [...] Telephone Encounter - Barbara Marx MD - 04/28/2021 11:46 PM EDT Arlen has not been seen for SSRI med f/up since 10/2020, so I have sent in a 30 day supply but I will need a med f/up visit in the next 4 weeks- VV Ok, 30 min preferred d/t pt complexity. Can add on to schedule at end of a Tuesday afternoon or on an afternoon off if needed. * Telephone Encounter - Vaishali Anaya LPN - 04/27/2021 2:39 PM EDT Pharm fax refill request escitalopram. EH documented in this encounter Plan of Treatment Not on file documented as of this encounter Visit Diagnoses Diagnosis Depression with anxiety Dysthymic disorder documented in this encounter Care Teams [employer] Relationship Specialty Start Date End Date Provider, MD Norma [address] [place] [phone] PCP - General Pediatrics 03/16/23 12/07/23 Tutu Art APRN FIELD REPRESENTATIVES DIRECTOR BS MSN Consulting Physician Nephrology 07/08/21 documented as of this encounter
--- OUTSIDE RECORDS SUMMARY | 2024-10-31 14:46 | XMS_ITS | Clinical Summary ---
Author Organization [facility] Address [address] [place] [phone] Phone Care Team Providers Care Senior Windows Engineer Name Role Phone Unavailable Primary Care Provider Unavailabl e Allergies Active Allergy Reactions Criticality Noted Date Comments Environmental Seasonal Medications Spacer/Aero-Hold ing Chambers (VALVED HOLDING CHAMBER) device Use with albuterol MDI 1 8 Active ibuprofen 600 MG tablet TK 1 T PO Q 8 HOURS PRF PAIN 0 9 Active Etonogestrel (Nexplanon) 68 MG implant 0 Active omega-3 1200 MG capsuleIndicatio ns:Depression with anxiety,Hypercho lesterolemia Take 1 capsule (1,200 mg total) by mouth daily. 90 capsule 3 0 Active Riboflavin (Vitamin B-2) 100 MG tabletIndication s:Chronic migraine without aura without status migrainosus, not intractable Take 1 tablet by mouth 2 (two) times a day. 180 each 3 0 Active Respiratory Therapy Supplies (Nebulizer/Tubin g/Mouthpiece) kitIndications:M ild persistent asthma without complication 1 Units as needed (for cough, wheeze or chest tighness, use with neb machine medications). 1 each 1 0 Active albuterol HFA 108 (90 Base) MCG/ACT inhalerIndicatio ns:Mild persistent asthma without complication Inhale 2 puffs every 4 (four) hours as needed for wheezing or shortness of breath. 1 Units 1 0 Active fluticasone HFA (Flovent HFA) 110 MCG/ACT inhalerIndicatio ns:Mild persistent asthma without complication Inhale 2 puffs 2 (two) times a day. Rinse mouth with water after use, do not swallow. 1 Units 5 1 Active amitriptyline 50 MG tabletIndication s:Chronic migraine without aura without status migrainosus, not intractable TAKE 1 TABLET(50 MG) BY MOUTH EVERY NIGHT 30 tablet 1 1 Active escitalopram 20 MG tabletIndication s:Depression with anxiety Take 1 tablet (20 mg total) by mouth daily. 30 tablet 1 Active levothyroxine 75 MCG tablet Take 75 mcg by mouth once daily. 1 Active EPINEPHrine 0.3 MG/0.3ML injection syringe USE DIRECTED FOR ANAPHYLAXIS THEN CALL 911 1 Active Melatonin 5 MG tabletIndication s:Sleep difficulties Take 1 tablet by mouth nightly. 90 tablet 3 1 Active cloNIDine (Catapres) 0.3 MG tabletIndication s:Sleep difficulties Take 1 tablet (0.3 mg total) by mouth nightly. 90 tablet 1 1 Active acetaZOLAMIDE 250 MG tablet Take 500 mg by mouth 3 (three) times a day. 1 Active montelukast 10 MG tabletIndication s:Seasonal allergic rhinitis due to pollen,Moderate persistent asthma without complication TAKE 1 TABLET(10 MG) BY MOUTH EVERY NIGHT 90 tablet 3 2 Active Active Problems Problem Noted Date Diagnosed Date Idiopathic intracranial hypertension 01/19/2021 Overview (03/17/2022): 01/2021: Referred to [facility] for persistent GARCIA despite 50 mg Amitriptyline QHS, recent rapid weight gain and maternal history of IIH- exam with mild medial papilledema, confirmed by [facility] Optho. Admitted for MRI/MRV with narrowing of R lateral venous sinus and elevated OP on LP=32, closing 21, with dx IIIH, started on Acetazolamide/Diamox 500 TID with planned follow-ups 02/2021 with Neuro/Optho 11/2021: [facility] Adult Neuro- Mild papilledema again on exam-restarted Acetazolamide at 250 BID - (off for 2-3 mos and history of fatigue at previous 500 mg BID/TID dosing) RTC and Optho q 4 mos Assessment & Plan (05/29/2021 7:05 PM EDT): Pt overdue for f/up with [facility]rology for her ICH- almost out of her acetazolamide. GARCIA improved despite only taking 500 QD vs TID . Pt to call [facility] next week for f/up and will refer to [facility] Neuro now . Nexplanon in place 12/26/2019 Overview (03/30/2020): Placed by OBGYN Counseling and coordination of care 06/13/2019 Assessment & Plan (10/09/2020 2:11 PM EST): Plan for RN CC team to reach out to pt over the next few weeks to ensure pt has been able to obtain the multiple f/up appointments, labs and new services discussed at today's visit, and help identify and address barriers to effective self- advocacy. Subacute autoimmune thyroiditis 11/24/2018 Overview (08/25/2021): 11/2018 TSH = 4.48, fT4 WNL 03/2020 TSH 6.34, ft4 1.01, low normal, with obesity, blood sugar 106 and ALT 44 05/2020: [facility] Pedi Endo consult with Dr Jina Singh. Repeat TSH 6.34 but ft4 now 0.92L and anti-thyroid peroxidase ab+ >1000. Recommend weight loss and repeat labs in 2 months 10/2020: TSH 7.07, ft4 0.82 and Anti-TPA abs >1000- started on 75 Levothyroxine by Pedi Endo 01/06/2021: Levothyroxine 88 pre-diabetic Aic 5.5%, H TC and high TC Assessment & Plan (10/13/2020 10:24 AM EST): Worsening thyroid function on recent labs with fT4 now 0.82 and TSH 7.07. Pt to call for urgent Endocrine f/up and will reach out via [facility] to Dr BERMUDEZ to make aware. Assessment & Plan (05/05/2020 1:11 PM EDT): Mild TSH elevation but in setting of mood disorder and very steady weight gain recently-Formal Endocrine consult planned for next month. Assessment & Plan (03/31/2020 12:50 PM EDT): Repeat! Chronic migraine without aur a without status migrainosus, not intractable 10/21/2018 Overview (01/20/2021): Chronic, with mixed migraine and tension type features, wears glasses, mom with h/o Pseudotumor Cerebri. No vomiting or night time GARCIA. 10/2018: Ophtho eval WNL 10/2020: Amitiptyline 50 mg QHS 01/2021: [facility]y- suggested Ophtho exam ? abnormal fundoscopic exam , d/c Amytiptyline in favor of Propranolol 20 mg TID ( but asthma?) and sleep study Assessment & Plan (10/09/2020 1:32 PM EST): Taking ibuprofen daily, so suspect element of rebound GARCIA, and fatigue with ongoing mood disturbance likely exacerbating her GARCIA pattern as well. Begin Amytriptyline and refer to Adult Neuro Assessment & Plan (07/10/2019 9:12 AM EST): Suggest Migranex vs riboflavin QD and refer to Adult Neuro, hope to see GARCIA improve with sleep and possibly direct effect of Melatonin/Trazodone Hypercholesterolemia 06/05/2018 Overview (11/24/2018): 02/27/2018: HDL 52, non-HDL 186 H, + FH hypercholesterolemia, repeat in 2-3 mos 09/2018:HDL 48, non-HDL 185- refer to Cardiology for formal consult 10/30/18: L[facility]/Fady Lino- full fasting panel with LDL, TG and CK, rx lifestyle changes, RTC ? timeframe Assessment & Plan (03/31/2020 2:28 PM EDT): Repeat fasting lipid panel with today's screening labs and family to reschedule overdue f/up with Dr. Lino at [facility] Assessment & Plan (07/09/2019 4:46 PM EST): Needs to reschedule f/up with Dr Lino, will plan repeat fasting labs Assessment & Plan (06/10/2018 5:41 PM EDT): Repeat fasting lipid panel, if consistently abnormal, refer to Cardiology Seasonal allergic rhinitis due to pollen 018 Overview (07/05/2021): Springtime predominant, but 10/2020 skin testing at [facility] + to birch, grass, ragweed, dust mites, cat, horse> dog. RX Montelukast, Cetirizine, nasal ICS PRN and AIT suggested Assessment & Plan (11/19/2019 3:10 PM EDT): Refill Cetirizine in anticipation of Spring pollen triggered rhinitis sx. Assessment & Plan (10/23/2018 11:17 AM EDT): Begin daily Cetirizine 10 in addition to her current Montelukast in anticipation of spring Assessment & Plan (06/05/2018 4:15 PM EDT): Currently denies any sig level of allergic eye or nose sx- still on Cetirzine Assessment & Plan (05/04/2018 9:05 PM EDT): Mild rhinoconjunctivitis on exam today- suggest starting Cetirizine or Loratadine 10 mg QHS Moderate persistent asthma without complication 2017 Overview (12/24/2021): 12/2017 :Sx well controlled on Flovent 110 2 puffs BID, trial off poorly tolerated, return to ICS 02/27/2018: supra-normal spirometry, but c/o chest tightness and SOB with exertion, Hgb WNL. 04/2018: Sig exertional cough /SOB with ACT=13 and daily albuterol need,- QVAR Redihaler 80 2P BID 11/2019: Doing well on Singulair 09/2020: Exercise intolerance symptoms ( SOB with chest tightness and cough) reported with school stairs on Singulair alone, peak flow excellent in office at 450. ( Uq=628 cm) resume ICS with Flovent 110 2 puffs BID. 01/2021:Asthma symptoms well controlled on Flovent with Dr Luis Fernando DEE- beginning AIT soon. Vit D 46, RTC 3 mos Assessment & Plan (10/13/2020 10:26 AM EST): ICS resumed and symptoms improved, but still struggling with 4 floor stair climb at school- letter for elevator use prepared for Arlen today, continue gym class. Assessment & Plan (08/05/2020 7:03 PM EST): Continue Montelukast, plan QVAR for burst therapy for VRS only, tubing ordered today for her use with the family neb machine PRN. AAP updated for winter.Flu shot done already. Refer to [facility] to explore AIT Assessment & Plan (05/05/2020 1:09 PM EDT): Continue daily Montelukast, reminded to pre-medicate with Ventolin prior to exercise. NO refills needed today. AAP prepared.F/up in 6 mos Assessment & Plan (11/19/2019 3:09 PM EDT): Stable on Singulair and needing albuterol very rarely- no refill needed today. Assessment & Plan (07/09/2019 5:11 PM EST): Asthma sx doing fine on the Montlukast and Cetirizine ( off the QVAR since summertime), except for when climbing her 6 flights of stairs at school.No refill needed on albuterol Assessment & Plan (10/23/2018 11:19 AM EDT): Continue QVAR 80 2 puffs QD for now, Montelukast and will add Cetirizine 10, RTC in 1 mo for spirometry eval. Assessment & Plan (06/10/2018 5:33 PM EDT): ACT improved but still Only =17 today. Will continue on her current QVAR 80 Redihaler 2 puffs BID but will add on Montelukast 10 mg QD for some overlap protection for allergy with some hopefull improvement in asthma control. If exertional SOB persists will need to move to ICS+LABA. Assessment & Plan (05/04/2018 9:05 PM EDT): Resume daily ICS therapy with QVAR 80 Redihaler 80 2 puffs BID- sample given today. RTC in 3-4 weeks, consider adding Montelukast vs LABA if control remains sub- optimal. Assessment & Plan (02/27/2018 7:15 PM EDT): Amazingly normal spirometry today off ICS. Possible isolated exercise induced sx. Pt to log all asthma sx and response to albuterol MDI, call in 2 weeks with progress update. Consider trial Montelukast. Assessment & Plan (02/05/2018 5:41 PM EDT): Plan formal PFTs in ext 3 months, flu shot annually. Depression with anxiety 2017 Overview (11/05/2020): H/o depressive sx in past years, with abnormal PHQ9 including recent SI on [facility] 12/2017, but very normal/preserved function -honor roll at school 01/2018: Sertraline trial with initial good effect at 50mg, but increased sx reported 2018, dose titrated to max 100 but d/c'd for side effects 02/2019: Changed to Fluoxetine 10 mg with good effect, mild upset, Mize 3s added 03/2019: Changed to Escitalopram for worsening GI side effects with initial improvement 06/04/19: GAD7 (19) and PHQ9 (26) with active SI endorsed on med f/up visit- pt referred for Crisis Eval, sent home with plan to establish in-home and outpatient therapy 06/13/19 phone consult with [facility],Dr Ortiz, rx increasing Esc to 15 mg and will plan formal MCPAP consult eval and assist with planned transfer to psychiatric care 07/09/19: SI resolved on Escitalopram 15 and intensive in-home family therapy 2x weekly, on wait list for outpatient therapist. ? Psychiatrist 11/22/19- F/up call placed to [facility] as rica family no contact has been made. 03/2020: GAD7=14 with panic and PHQ9 16 with return of passive SI, ( pt lost her outpt [facility] therapist) Esc increased to 20, Hydroxyzene 5-10 mg PRN, refer to IB 11/06/2020: FINANCE ANALYST intake! Assessment & Plan (05/29/2021 7:17 PM EDT): No refill needed on Escitalopram but trial as QHS administration for the next 4 days until first intake appointment with [facility] psychiatry. Arlen to request therapist at [facility], but may receive bridging CBT services as desired with our [facility] team for the next 3 months while waiting. Assessment & Plan (10/09/2020 1:35 PM EST): Continue Escitalopram 20 but recommend pt re-establish her previously very effective, manager intermediate therapy services through [facility] or [facility] provider. Detailed list provided to pt and father today. Would prefer a program with prescriber option for best co-ordination of care. Assessment & Plan (08/05/2020 7:02 PM EST): Pt continues with sig symptoms, fluctuating intensity despite good compliance with current Escitalopram 20.Discussed concern that Nexplanon might be conrtibuting to her negative mood symptoms but Arlen prefers to keep it as she was so uncomfortable with her periods and could never remember to take her OCPs. Ralen still without therapist or psychiatrist at this time. Plan refer to new [facility] acute care program for med management assistance. Assessment & Plan (05/05/2020 1:16 PM EDT): Continue Esc at current 20 mg QD, trial Hydroxyzene at 15 mg, then 20mg dose as needed for her PRN anxiety episodes. May also try taking 50 mg=1/2 tab of her current Trazodone as a PRN instead. Pt shown the [employer] website so she can try to find a therapist who will be a good fit for nursing home support. Doing well enough that no longer makes sense to involve our short term [facility] team. Refer to [facility] Telepsychiatry program with understanding that first visit needs to be in person usually ( ? COVID rules). Contact number provided to arlen today. Assessment & Plan (03/31/2020 2:31 PM EDT): Was stable and doing well on Escitalopram at 15 dose prior to the COVID pandemic and the unfortunate loss of her regular therapist. PHQ9 =16 with passive SI today and GAD7 14 with panic like episodes. Will push dose up to 20 and suggest Hydroxyzene for her panic episodes buta at a 5-10 mg dose. Will see what we can do to resume her therapy services through [facility], but for more urgent stabilization will temporize with our IB team for the allowed 6 visits. Assessment & Plan (01/08/2020 10:36 AM EDT): Sudden and dramatic negative mood alteration following Nexplanon implant, suspected d/t progesterone based hormonal effects. Pt to discuss with OB immediately. Increased Trazadone to try to improve sleep and encouraged daily exercise for mood stabilizing effect. Suddenly without therapy support d/t staff turnover at [facility]. Suggest pt reach out to her previous in-home therapist to see if services could be re-instated given the change in her mood sx and discontinuity of outpatient therapy support.Will discuss with integrated Behavioral health providers, ? Possible temporary support during transition. Assessment & Plan (11/19/2019 3:07 PM EDT): Continue Escitalopram 15 mg QD. Arlen prefers that another call be placed to [facility] to re-request transfer to child psychiatry for manager intermediate care. Assessment & Plan (07/10/2019 8:30 AM EST): Mood sx have markedly improved since increase Escitalopram to 15 mg, and start of intensive in-home family therapy program with 2 therapists of 2 hour sessions, 2 times weekly- sessions in the evenings and on weekends when parents can participate. Pt on an 8 week wait list for outpatient therapy. Dad to check with therapist team regarding status of planned transfer to psychiatric care. Assessment & Plan (06/04/2019 6:52 PM EDT): Unstable and significant depressive sx today despite current and previously effective SSRI therapy, with active SI and recent self injury. Pt feels she is a potential danger to self and is unable to identify a solid safety plan.Refer for formal crisis eval. Assessment & Plan (03/19/2019 7:37 PM EDT): D/c Fluoxetine d/t side effects and will trial Escitalopram and add PRN Hydroxyzene for PRN anxiety and may use QHS to help sleep Assessment & Plan (03/02/2019 11:30 AM EDT): Clear mood sx improvement with resolution of SI on current Fluoxetine 10 mg QAM. Suggest regular breakfast daily. GI upset suspected to be a side effect,so hold at current dose Assessment & Plan (02/16/2019 3:07 PM EDT): D/c Sertaline in favor of trial of Fluoxetine, begin at 5mg dose with titration to goal 20- RTC 2 weeks Assessment & Plan (12/18/2018 4:11 PM EDT): Increase Sertraline to 100 mg QAM and add crisis contact number to phone. Has good safety plan in place, will call in 1-2 weeks with update, sooner if any sx worsening. Will consider therapy. Assessment & Plan (10/23/2018 11:21 AM EDT): Feeling more anxious during the day lately for no particular reason , and 13 lb weight gain,check TSH and increase Sertraline to 75mg QD- RTC in 1 month Assessment & Plan (02/28/2018 8:25 AM EDT): Sertraline trial 02/2018 Assessment & Plan (02/07/2018 8:02 AM EDT): Sig improvement in mood sx today on low dose Sertraline 50mg x 1 month. Continue at current dose, re-assess in 1 month at Asthma consult visit. Assessment & Plan (02/05/2018 5:47 PM EDT): Sertraline started 12/2017 Obesity due to excess calori es without serious comorbidity with body mass index (BMI) in 95th to 98th percentile for age in pediatric patient 2017 Overview (05/20/2020): 12/2017 BMI > 90% 10/2018: BMI =94% with 13 lb weight gain, TSH minimally elevated but ft4 WNL 03/2020 BMI> 95% with 24 wt wt gain in past year, TSH now 6.34, ALT 44, glucose 106 with mixed dyslipidemia on fasting sample-refer to Endocrine 05/15/20: Reassuring Endocrine consult with Dr Jina Singh, repeat thyroid labs with auto-antibodies planned, lifestyle chanages recommended with help of nutrition, recheck metabolic labs q 12 mos Assessment & Plan (10/09/2020 1:17 PM EST): Repeat metabolic screening with fasting lipids and thyroid labs Assessment & Plan (07/28/2020 5:52 PM EST): Wt up 40 lb in past 12 mos during pandemic, BMI currently 98%/36. Encouraged aerobic activity at home with focus on plant based diet, water. Endocrinology and cardiology following. Assessment & Plan (05/05/2020 1:13 PM EDT): Wt up another 5 lb since last month, with mood disorder complicating eating behaviors, but also with elevated TSH- Endocrine consult pending.. Encouraged healthy stress management skills like walking, meditation, talking with friends. Monitor. Assessment & Plan (02/07/2018 8:04 AM EDT): Encouraged healthy nutrition and daily PA, but focusing on mood stabilization ,sleep and Asthma at the moment-follow Assessment & Plan (02/05/2018 5:52 PM EDT): Encourage daily walking activity, and a plant based diet with avoidance of added sugars and processed foods. Sleep difficulties 08/12/2015 Overview (01/20/2021): Trouble both falling and staying asleep-Melatonin used with good effect in the past, but currently with Depressive mood symptoms 07/2019 - Melatonin, Trazodone 25mg QHS 10/2020- still delayed sleep onset and maint despite Trazodone to 150mg and Clonidine to 0.2. no NIKITA symptoms but BMI acceleration 2019- refer to [facility] Sleep Med for formal consult Assessment & Plan (05/29/2021 7:18 PM EDT): Resume Melatonin 5 mg QHS, continue Clonidine and change Escitalopram to QHS admin for now to maintain consistent system level. Assessment & Plan (10/06/2020 12:18 PM EST): Still with significant sleep onset difficulty ad fragmented sleep overnight despite Trazodone to 150 and trial Clonidine to 0.2mg. NO obvious snoring/NIKITA concerns noted by family or pt. Refer to [facility] Sleep Med for formal consult Assessment & Plan (07/28/2020 5:53 PM EST): D/c Trazodone- continue Melatonin and trial Clonidine 0.1mg QHS Assessment & Plan (01/08/2020 10:08 AM EDT): Increase Trazadone QHS dosing to 75 mg up to max 100 mg QHS, encouraged daily 30-60 min brisk walking exercise Assessment & Plan (11/19/2019 3:08 PM EDT): Sleep difficulties persist despite overall mood improvement, but pt off regular schedule d/t COIVD Quaranteen. Advised daily walking for exercise but can increase Trazadone to 50 mg QHS Assessment & Plan (07/09/2019 5:02 PM EST): Plan to begin 5 mg Melatonin QHS for 3-4 days. Will also trial Trazadone at 25 mg= 1/2 tab Assessment & Plan (06/04/2019 6:54 PM EDT): Significant sleep disturbance reported with current worsening of depressive symptoms. Consider Trazadone if not admitted for inpatient stabilization today Assessment & Plan (02/07/2018 8:00 AM EDT): Sx persist despite improved mood on SSRI therapy, resume Melatonin 3 mg QHS. If not improving, plan trial Trazadone at 25-50 mg QHS vs Clonidine Assessment & Plan (02/05/2018 5:45 PM EDT): Recommend Melatonin 3 mg QHS and Sertraline trial started 12/2017 Resolved Problems Problem Noted Date Diagnosed Date Resolved Date Academic problem 01/08/2020 10/09/2020 Overview (01/08/2020): encouraged Arlen to reach out directly to her Math and Swedish teachers as well as her Guidance Counselor. Once HIPPA releases signed we can provide input PRN. Bruises easily 06/10/2018 10/21/2018 Overview (10/05/2018): h/o heavy menses with easy/exaggerated bruising 09/2018: Normal CBC, LFTs and VonWillebrand panel Exercise intolerance 02/27/2018 018 Overview (02/27/2018): Pt describing SOB with minimal activty, like stair climbing at school- so ? component of de-conditioning, possible anemia Dysmenorrhea treated with oral contraceptive 8 03/30/2020 Overview (07/10/2019): Dysmenorrhea, mood dysregulation and acne concerns at [facility] [employer] 12/2017. No FH DVT or BCA, normal Genprobe 12/2017: on Sprintec with good effectiveness 02/2019: Changed to Nuvaring for difficulty remembering to take OCP and subsequent BTB/cramping Assessment & Plan (01/08/2020 10:06 AM EDT): Nexplanon placement 2 weeks ago with dramatic negative effects on pts mood. Next OB f/up due 01/21, but pt encouraged to call and discuss current concerns with OB immediately. Assessment & Plan (07/10/2019 9:25 AM EST): Nuvaring poorly tolerated/ineffective- refer to PAINTING TECHNICIAN but begin trial Apri in the meantime. Assessment & Plan (02/16/2019 7:51 PM EDT): Pt now reporting sig cramping and moodiness with her periods- trial change to Nuvaring if permitted by insurance, vs Apri if not Assessment & Plan (02/28/2018 8:26 AM EDT): OCP treatment with Sprinted with good effect Assessment & Plan (02/07/2018 7:57 AM EDT): Excellent clinical improvement on current OCP with acceptable BP today- continue with annual review Assessment & Plan (02/05/2018 5:50 PM EDT): OCP trial with Sprintec ( EE/Norgestimate) started 12/30/2017 With negative GC screen Immunizations Immunization Administration Dates Next Due COVID-19 Pfizer, monovalent, 12+ years 2,12/02/2020 DTaP 5 03/07/2008, 7,03/24/2004,06/24,04/23/2003,02/19/2003 HPV Vaccine 9 Valent 10/02/2015,05/06/2015,03/07 Hep A, ped/adol 09/27/2006,02/16/2006 Hep B, ped/adol 06/24/2003,04/23/2003,2002 Hib (PRP-T) 12/18/2003, 3,04/23/2003,02/19 IPV 12/01/2017, 8,06/24/2003,04/23,02/19/2003 Influenza Split 06/26/2012,04/28/2011,06/30/2010 Influenza, injectable, MDCK, preservative free, quadrivalent 04/13/2020 Influenza, injectable, quadrivalent 05/20/2018 Influenza, injectable, quadr ivalent, preservative free 04/15/2021,05/28/2019,05/20/2018,04/20,05/06/2015 Influenza, injectable, triva lent, preservative free 05/23/2014,07/03/2013,04/22/2009,06/16,06/25/2005 MMR 03/07/2008,03/24/2004 Meningococcal B Trumenba 07/28/2020 Meningococcal Conj (Menactra) MCV4P 03/02/2019,0 03/07/2015 Pneumococcal Conjugate 07/25/2004,2002,04/23/2003,02/19 Tdap 03/07/2015 Varicella 03/07/2008,12/23/2003 Family History Medical History Relation Name Comments ADD / ADHD Brother Depression Brother ADD / ADHD Father Allergic rhinitis Father Arrhythmia Father Asthma Father Depression Father Hyperlipidemia Father Kidney disease Father Allergic rhinitis Maternal Grandfather Asthma Maternal Grandfather Diabetes Maternal Grandfather Eczema Maternal Grandfather Heart disease (Premature) Maternal Grandfather Hyperlipidemia Maternal Grandfather Hypertension Maternal Grandfather Allergic rhinitis Maternal Grandmother Asthma Maternal Grandmother Heart disease (Premature) Maternal Grandmother Hyperlipidemia Maternal Grandmother Hypertension Maternal Grandmother Inflammatory bowel disease Maternal Grandmother Alcoholism Mother Depression Mother Drug abuse Mother Heroin Addictio n Migraines Mother Obesity Mother Hyperlipidemia Paternal Grandfather Pancreatic cancer Paternal Grandfather Thyroid disease Paternal Grandmother Relation Name Status Comments Brother Father Father: Asthma, Elevated cholesterol, ADD/ADHD Maternal Grandfather Maternal Grandmother Mother Alive Mother: Migrain es, Alive and well Other Family history of Diabetes mellitus Paternal Grandfather Paternal Grandmother Social History Tobacco Use Types Packs/Day Years [...] Orientation Straight 07/09/2019 5: 47 PM EST Last Filed Vital Signs Vital Sign Reading Time Taken Comments Blood Pressure 128/83 10/13/2020 9:52 AM EST Pulse 106 10/13/2020 9:52 AM EST Temperature 35.9 ??C (96.7 ??F) 10/13/2020 9:52 AM ES T Respiratory Rate 18 10/23/2018 10:27 AM EDT Oxygen Saturation 99% 03/19/2019 1:03 PM EDT Inhaled Oxygen Concentration - - Weight 109 kg (241 lb) 05/29/2021 5:17 PM EDT Height 158.1 cm (5' 2.25 ) 10/13/2020 9:52 AM ES T Body Mass Index - - Plan of Treatment Health Maintenance Due Date Last Done Comments Men B Vaccine (2 of 2 - Trum enba SCDM 2-dose series) 01/26/2021 07/28/2020 Influenza Vaccines (#1) 2024 04/26/20 22, 04/15/2021, 04/13/2020, Additional history exists COVID-19 Vaccine (5 - 2023-2 5 season) 2024 06/10/2022, 08/23/2021, 12/23/2020, Additional history exists DTaP,Tdap,and Td Vaccines (7 - Td or Tdap) 03/07/2025 03/07/2015, 03/07/2008, 12/21/2006, Additional history exists Hepatitis B Vaccines Completed 06/24/2003, 04/23/2003, 2002 HIB Vaccines Completed 12/18/2003, 06/08, 04/23/2003, Additional history exists Pneumococcal Vaccine Completed 07/25/2004, 06/24/2003, 04/23/2003, Additional history exists Hepatitis A Vaccines Completed 09/27/2006, 02/17/20 MMR Vaccines Completed 03/07/2008, 03/24/2004 Varicella Vaccines Completed 03/07/2008, 12/23/2003 HPV Vaccines Completed 10/02/2015, 04/09, 03/07/2015 IPV Vaccines Completed 12/01/2017, 02/07, 06/24/2003, Additional history exists Meningococcal Vaccine Completed 03/02/2019, 015 Procedures * Due to [place] [employer] law, this organization might not be sharing sensitive test results. Procedure Name Priority Date/Time Associated Diagnosis Comments CHLAMYDIA AND GONORRHEA, AMPLIFIED Routine 07/09/2019 4:18 PM EST Screen for STD (sexually transmitted disease) from Last 3 Months or Most Recently Relevant to Health Maintenance Results * Due to [place] [employer] law, this organization might not be sharing sensitive test results. * Chlamydia and Gonorrhoea, Amplified (07/09/2019 4:18 PM EST) Pathologist [facility] Chlamydia Trachomatis, DNA Probe NEGATIVE (NEG) [facility] Comment: No Chlamydia Trachomatis RNA detected in this patient's sample ? (REFERENCE RANGE/NORMAL VALUE: NOT DETECTED) ? Note: This test uses resource specialist- mediated amplification method to detect rRNA from C. Trachomatis URINE GC AMP PROBE NEGATIVE (NEG) [facility] Comment: No Neisseria Gonorrhoeae RNA detected in this patient's sample ? (REFERENCE RANGE/NORMAL VALUE: NOT DETECTED) ? NOTE: This test uses resource specialist-mediated amplification method to detect rRNA from N.Gonorrhoeae. A negative result does not preclude infection. In the case of a negative urine result, testing of an endocervical(female) or urethral (male) specimen is recommended if there is high clinical suspicion of infection. Due to very high sensitivity of Nucleic Acid Amplification Test, false positive results may occur. Therefore, specimen handling is extremely important. In patients in whom the disease is unlikely, additional sample for testing should be considered after an initial positive result. The performance characteristics of this test have not been evaluated in children. The Aptima Combo2 assay is not intended for the evaluation of suspected sexual abuse or for other medico-legal indications. The ordering provider should assess if the patient had consensual sex without risk of sexual abuse. Consult the [facility] if needed. Contact phone number . Therapeutic failure or success cannot be determined with the Aptima Combo2 assay since nucleic acid may persist following appropriate antimicrobial therapy. The Centers for Disease Control and Prevention (CDC) recommends confirmatory retesting using culture or a different nucleic acid amplification test when positive results occur, if indicated. Testing performed or reported by [facility], a Service of [facility], [address] [place] [address] [place] [address] Urine 07/09/2019 4:18 PM EST 07/09/2019 8:16 PM EST us Barbara Marx MD LAB MICROBIOLOGY - GENERAL SANDRA RAMIREZ Final Result [facility] from Last 3 Months or Most Recently Relevant to Health Maintenance [place] [id number] [facility] NON PCC [place] [id number] Care Teams Senior Windows Engineer Relationship Specialty Start Date End Date Tutu Art APRN SCHOOL LEADER BS MSN Consulting Physician Nephrology 07/08/21
--- OUTSIDE RECORDS SUMMARY | 2024-10-31 14:46 | XMS_ITS | Encounter Summary ---
Author Organization [facility] Address [address] [place] [address] Phone Care Team Providers Care Seo Professional Name Role Phone Provider, Norma ANSARI Primary Care Provider [phone] Encounter Details Date Type Department Care Team (Late st Contact Info) Description 05/08/2012 Documentation [facility] [address] [place] [address] Family Medicine, Physician [address] [place] [address] Social History Tobacco Use Types Packs/Day Years [...] on filedocumented in this encounter Care Teams Seo Professional Relationship Specialty Start Date End Date Provider, MD Norma [address] [place] [address] PCP - General Pediatrics 03/16/23 12/07/23 Tutu Art APRN PROCESS CONTROL SPECIALIST BS MSN Consulting Physician Nephrology 07/08/21 documented as of this encounter
--- OUTSIDE RECORDS SUMMARY | 2024-10-31 14:46 | XMS_ITS | Encounter Summary ---
Author Organization [facility] Address [address] [place] [address] Phone Care Team Providers Care Handbag Designer Name Role Phone Provider, Norma ANSARI Primary Care Provider [phone] Encounter Details Date Type Department Care Team (Late st Contact Info) Description 03/24/2017 Conversion Encounter [facility] [address] [place] [address] Social History Tobacco Use Types Packs/Day Years Used Date Smoking Tobacco: Never Comments:Never smoker Comments Unknown Sex and Gender Information Value [...] on filedocumented in this encounter Care Teams Handbag Designer Relationship Specialty Start Date End Date Provider, MD Norma [address] [place] [address] PCP - General Pediatrics 03/16/23 12/07/23 Tutu Art APRN RENTAL CAR FERRY DRIVER BS MSN Consulting Physician Nephrology 07/08/21 documented as of this encounter
--- OUTSIDE RECORDS SUMMARY | 2024-10-31 14:46 | XMS_ITS | Encounter Summary ---
Author Organization [facility] Address [address] [place] [address] Phone Care Team Providers Care Inspection And Testing Supervisor Name Role Phone Provider, Norma ANSARI Primary Care Provider Encounter Details Date Type Department Care Team (Late st Contact Info) Description 12/16/2017 Conversion Encounter [facility] [address] [address] Social History Tobacco Use Types Packs/Day Years [...] on filedocumented in this encounter Care Teams Inspection And Testing Supervisor Relationship Specialty Start Date End Date Provider, MD Norma [address] [place] [phone] PCP - General Pediatrics 03/16/23 12/07/23 Tutu Art APRN BELLMAN BS MSN Consulting Physician Nephrology 07/08/21 documented as of this encounter
--- OUTSIDE RECORDS SUMMARY | 2024-10-31 14:46 | XMS_ITS | Data Portability ---
Author Organization [facility]ose martha [address] Address [address] [place] [address] Care Team Providers Care Event Sales Manager Name Role Phone LANI REYNA Pharmacy Technician Unavailable Assessment No assessment recorded. Plan of Treatment Reminders Order Date Submit Date Provider Last Modified By Organization Details Last Modified Time Details Appointments None recorded. Lab None recorded. Referral None recorded. Procedures None recorded. Surgeries None recorded. Imaging None recorded. Medication Orders baclofen 10 mg tablet 2023 024 [id number], [address] [place], [place], [phone], 16:12:53 Patient TargetsNo targets recorded. Patient Instructions Encounter Date Encounter Id Patient Instructions Last Modified By Organization Details Last Modified Time 01/12/2024 [id number] neck pain: care instructions [email or web address] Not available 01/12/2024 12:43:31 neck spasm: exercises nmakris Not available 01/12/2024 12:43:31 Based on your exam- you were diagnosed with a minor head injury. The patient needs to be monitored closely for the next 24 hours. I would not participate in any sports or other activities that could subject to more trauma. We are limited in our abilities to diagnose - the study of choice for serious head injuries is a CT scan. Based on your exam and current symptoms it seems less likely that you have a severe injury that could be life threatening. However, this could change quickly. THEREFORE: If any of the following symptoms develop you need to go directly to the ER. 1. Dizziness 2. Change in personality 3. Vomiting 4. Severe Headache 5. Visual Change. Please do not hesitate to contact our office if you have any questions or concerns. You will need to follow up with PCP in the next 3 days. [email or web address] Not available 01/12/2024 12:36:47 Reason for Referral None Reported. Problems Name Problem SNOMED Code Status Onset Date Resolution Date Notes Provider Name and Address Organization Details Recorded Time Disorder of thyroid gland 35630525 Active 022 CHANDLER LOZANO null, [place] - [facility] 2 09:05:27 Bipolar disorder 91632881 Active 022 CHANDLER LOZANO null, [place] - [facility] 2 09:06:06 Asthma 461606752 Active 024 Tigist Heidelberg null, [place] - [facility] 4 12:13:09 Strain of neck muscle 381436316 Active 024 CHARLY HORTA NP [address] [place], [address] , [place] - [facility] 4 12:39:02 Minor head injury 181663360 Active 024 CHARLY HORTA NP [address] [place], [address] , [place] - [facility] 4 12:39:18 Problem Notes None recorded. Medical Equipment None Reported. Allergies Allergen ID Allergen Name Allergen Category Reaction Reaction Severity Criticality Documentation Date Start Date Code Code System Note Provider Name and Address Organization Details Recorded Time 61482 adhesive tape environme nt,medica tion rash Not available low 07/28/2022 84296 UNK CHANDLER LOZANO null, [place] - [facility] 2 09:03:51 Medications Name Sig Start Date Stop Date Status Note LastModified by Organization Details LastModified Time prazosin 1 mg capsule TAKE 1 TO 3 CAPSULES BY MOUTH AT BEDTIME 07/28 completed Not Available Not Available Not Available acetazolami de 250 mg tablet TAKE 1 TABLET BY MOUTH DAILY X 1 WEEK THEN INCREASE TO 1 TABLET BY MOUTH TWICE DAILY 07/28 completed Not Available Not Available Not Available levothyroxi ne 88 mcg tablet TAKE 1 TABLET BY MOUTH DAILY 01/11 completed Not Available Not Available Not Available baclofen 10 mg tablet Take 1 tablet 3 times a day by oral route as needed for 10 days, for muscle strain. 2023 active Not Available Not Available Not Avai lable cephalexin 500 mg capsule TAKE 1 CAPSULE BY MOUTH EVERY 6 HOURS FOR 7 DAYS 07/28 completed Not Available Not Available Not Available montelukast 10 mg tablet 01/11 completed Not Available Not Available Not Available lamotrigine 100 mg tablet TAKE 1 TABLET BY MOUTH DAILY 01/11 completed Not Available Not Available Not Available albuterol 90 mcg-budeson mirza 80 mcg/actuati on HFA aerosol inhaler Inhale by inhalatio n route. active Not Available Not Available No t Available Vitals Date Recorded Body weight Body mass index (BMI) Percentile per age and sex Body mass index (BMI) Body height Respiratory rate Body temperature Oxygen saturation Oxygen saturation in Arterial blood by Pulse oximetry Heart rate Systolic blood pressure Diastolic blood pressure Provider Name and Address Organization Details Last Updated DateTime 2 44492.5 8 g 98 % 38.8 kg/m2 157.48 cm 16 /min 97.7 [degF] 99 % 99 % 75 /min 119 mm[Hg] 74 mm[Hg] CHANDLER LOZANO [facility] 2 09:10:36 Date Recorded Body height Body mass index (BMI) Body weight Oxygen saturation Oxygen saturation in Arterial blood by Pulse oximetry Heart rate Respiratory rate Body temperature Pain severity - 0-10 verbal numeric rating [Score] - Reported Systolic blood pressure Diastolic blood pressure Provider Name and Address Organization Details Last Updated DateTime 4 157.48 cm 36.8 kg/m2 56732.0 7 g 100 % 100 % 67 /min 16 /min 98 [degF] 6 123 mm[Hg] 82 mm[Hg] Tigist Rubio PA - [facility] 4 12:14:32 Date Recorded Body height Body mass index (BMI) Body weight Pain severity - 0-10 verbal numeric rating [Score] - Reported Respiratory rate Body temperature Heart rate Oxygen saturation Oxygen saturation in Arterial blood by Pulse oximetry Systolic blood pressure Diastolic blood pressure Provider Name and Address Organization Details Last Updated DateTime 4 157.48 cm 36.8 kg/m2 21630.0 7 g 2 18 /min 97.7 [degF] 86 /min 99 % 99 % 141 mm[Hg] 91 mm[Hg] Sandra Lopez PA - [facility] 4 08:15:32 Social History Question Answer Notes LastModified by Organizat ion Details LastModified Time Tobacco Smoking Status Never Smoker CHANDLER BLAKE null, [place] - [facility] 07/28/2022 09:06:41 What Is Your Level Of Alcohol Consumption? None Information not available 07/28/2022 Are You Currently Employed? Yes Information not available 07/28/2022 Have You Had A Flu Shot This Season? Yes [email or web address] Information not available 01/12/2024 Sex: Unknown Functional Status None recorded. Mental Status None recorded. Family History Relationship Description Onset Age of this Age Resolved Age Notes LastModified by Organization Details LastModified Time Father No current problems or disability Not available 07/28 09:06:26 Mother No current problems or disability Not available 07/28 09:06:26 Medical History No medical history recorded. Gynecological History Statement/Question Response Current Control Method Implant Date of LMP 12/26/2023 Obstetrics History GPAL:G 0 P 0 0 0 0 Immunizations Vaccine Type Date Status Note Provider Nam e and Address Organization Details Recorded Time Influenza, split virus, quadrivalent, PF 8 completed CHANDLER BLAKE null, PA - [facility] 07/28/2022 09:03:20 HPV9 6 completed CHANDLER BLAKE null, PA - [facility] 07/28/2022 09:03:20 Influenza, split virus, quadrivalent, PF 6 completed CHANDLER BLAKE null, PA - [facility] 07/28/2022 09:03:20 meningococcal MCV4P 9 completed CHANDLER BLAKE null, PA - [facility] 07/28/2022 09:03:20 HPV9 5 completed CHANDLER BLAKE null, PA - [facility] 07/28/2022 09:03:20 meningococcal B, recombinant 0 completed CHANDLER BLAKE null, PA - [facility] 07/28/2022 09:03:20 HPV9 5 completed CHANDLER BLAKE null, PA - [facility] 07/28/2022 09:03:20 Influenza, split virus, quadrivalent, PF 5 completed CHANDLER BLAKE null, PA - [facility] 07/28/2022 09:03:20 meningococcal MCV4P 5 completed CHANDLER BLAKE null, PA - [facility] 07/28/2022 09:03:20 COVID-19, mRNA, LNP-S, PF, 30 mcg/0.3 mL dose 2 completed CHANDLER BLAKE null, PA - [facility] 07/28/2022 09:03:20 Influenza, split virus, quadrivalent, PF 1 completed CHANDLER BLAKE null, PA - [facility] 07/28/2022 09:03:20 COVID-19, mRNA, LNP-S, PF, 30 mcg/0.3 mL dose 1 completed CHANDLER BLAKE null, PA - [facility] 07/28/2022 09:03:20 Tdap 5 completed CHANDLER BLAKE null, PA - [facility] 07/28/2022 09:03:20 Influenza, split virus, quadrivalent, PF 9 completed CHANDLER BLAKE null, PA - [facility] 07/28/2022 09:03:20 Influenza, MDCK, quadrivalent, PF 0 completed CHANDLER BLAKE null, PA - [facility] 07/28/2022 09:03:20 Influenza, split virus, quadrivalent, PF 2 completed CHANDLER BLAKE null, PA - [facility] 07/28/2022 09:03:20 COVID-19, mRNA, LNP-S, bivalent, PF, 30 mcg/0.3 mL dose 2 completed CHANDLER BLAKE null, PA - [facility] 07/28/2022 09:03:20 COVID-19, mRNA, LNP-S, PF, 30 mcg/0.3 mL dose 1 completed MICKI Carrillo - [facility] 07/28/2022 09:03:20 Past Encounters Encounter ID Performer Location Encounter Start Date Encounter Closed Date Diagnosis/Indication Diagnosis SNOMED-CT Code Diagnosis ICD10 Code Diagnosis Note [id number] [address] [address] 04/05/2020 10:38:35 04/05/2020 13:12:19 [id number] [place] [address] [address] 07/28/2022 08:10:27 07/28/2022 10:02:09 History and physical examination, pre-employment 470229414 Z02.1 [id number] [place] [address] [place] [address] 01/12/2024 11:55:36 01/12/2024 12:56:54 Strain of neck muscle 527513826 S16.1XXA You are being diagnosed with a Trapezius Muscle spasm based on your exam. The following are my recommenda tions to help with your symptoms:1 . Heating pad to the back of the neck.2. Stretch your neck regularly3 . Try to sleep with 1 pillow and support the arm.4. It is ok to Take Tylenol with what I gave you. You were prescribed a Muscle relaxant - this may make you drowsy. Do not drive with the medication . Also you only have to take this medication as needed. You do not need to complete the full course. Please go immediatel y to the Emergency room if you develop any:1. Shortness of breath2. Coughing up blood3. Significan t chest pain4. or Dizziness. light headedness Thank you for using [facility] . Please feel free to contact us if you have any questions or concerns. Minor head injury 575170 006 S09.90XA [id number] MICKI Brower [address] [place] [address] 01/16/2024 08:06:00 01/16/2024 08:26:46 Muscle spasm of cervical muscle of neck [id number] 04 M62.838 You were seen to follow up on a neck and head injury sustained at work.Sympt oms have improved significan tly and you are ready to go back to work. Please return if your pain starts to increase again Health Concerns Section Related Observation LastModified by Organization Detai ls LastModified Time None Recorded Concern Status LastModified by Organization Details LastModified Time None Recorded Advance Directives Directive None Recorded Payers Encounter Date Sequence Insurance Name Policy Number Policy Siddiqi Covered Member ID Siddiqi Member ID Guarantor Name 04/05/[address] [facility] [employer] - TOGETHER (MEDICAID HMO) [id number] Arlen Elkton [id number] 1 Arlen Elkton 07/28/2022 FEE FOR SERVICE Arlen Elkton 01/12/2024 [employer] Arlen Elkton 01/16/2024 [employer] Arlen Elkton Notes Date Note Type Note Provider Name and Address Organization Details Recorded Time 07/28/2022 text/html pre-employment ROSALINDA MURDOCK MD [address] [place], [address], [place] - [facility] 07/28/2022 09:44:49 01/16/2024 text/html 23 y/o female returns to follow on injury sustained at work 4 days ago. She was hit by a thrown chair and was having neck and head pain. She states her pain is minimal now, and she is ready to go back to work.She was able to rest the last 3 days MICKI Brower [address] [place], [address], [place] [employer] [facility] 01/16/2024 08:25:46 OBGyn Episode No OBEpisode recorded.
--- OUTSIDE RECORDS SUMMARY | 2024-10-31 14:46 | XMS_ITS | Encounter Summary ---
Author Organization [facility] Address [address] [place] [address] Phone Care Team Providers Care Boot Repairer Name Role Phone Provider, [facility] Primary Care Provider [phone] Reason for Visit * Reason Comments Med Refill Encounter Details Date Type Department Care Team (Late st Contact Info) Description 10/05/2017 Refill [facility] [address] [place] [address] Mell Verde DO [address] [place] [address] Mild persistent asthma without complication (Primary Dx); Menstrual cramps Social History Tobacco Use Types Packs/Day Years Used Date Smoking Tobacco: Never Comments:Never smoker Comments Unknown Sex and Gender Information Value Date Recorded Sex Assigned at Female 07/28/2020 5:34 PM EST Legal Sex Female 6:37 PM EDT Gender Identity Female 07/28/2020 8:40 AM EST Sexual Orientation Straight 07/09/2019 5: 47 PM EST documented as of this encounter Miscellaneous Notes * Telephone Encounter - Vaishali Anaya LPN - 10/05/2017 3:50 PM EST Pharm fax refill request flovent and naproxen sodium 550mg. EH documented in this encounter Plan of Treatment Not on file documented as of this encounter Visit Diagnoses Diagnosis Mild persistent asthma without complication- Primary Menstrual cramps Dysmenorrhea documented in this encounter Care Teams Boot Repairer Relationship Specialty Start Date End Date Provider, MD Norma [address] [place] [address] PCP - General Pediatrics 03/16/23 12/07/23 Tutu Art APRN BREAKDOWN MILL OPERATOR BS MSN Consulting Physician Nephrology 07/08/21 documented as of this encounter
--- OUTSIDE RECORDS SUMMARY | 2024-10-31 14:46 | XMS_ITS | Encounter Summary ---
Author Organization [facility] Address [address] [place] [phone] Phone Care Team Providers Care Information Systems Security Developer Name Role Phone Provider, Norma ANSARI Primary Care Provider [phone] Reason for Visit * Reason Comments Med Refill Encounter Details Date Type Department Care Team (Late st Contact Info) Description 08/23/2018 Refill [facility] - [address] [address] Barbara Marx MD Moderate persistent asthma without complication Social History [...] encounter Miscellaneous Notes * Telephone Encounter - Lorna Hodges RN - 09/13/2018 6:21 PM EST Spoke with pharmacy- still has refills available from a script written in Nov. Does not need refillsent. documented in this encounter Plan of Treatment Not on file documented as of this encounter Visit Diagnoses Diagnosis Moderate persistent asthma without complication documented in this encounter Care Teams Information Systems Security Developer Relationship Specialty Start Date End Date Provider, MD Norma [address] [place] [phone] PCP - General Pediatrics 03/16/23 12/07/23 Tutu Art APRN STRIP DEBURRER BS MSN Consulting Physician Nephrology 07/08/21 documented as of this encounter
--- OUTSIDE RECORDS SUMMARY | 2024-10-31 14:46 | XMS_ITS | Encounter Summary ---
Author Organization [facility] Address [address] [place] [address] Phone Care Team Providers Care Glove Stitcher Name Role Phone Provider, [facility] Primary Care Provider [phone] Reason for Visit * Reason Comments Med Refill Encounter Details Date Type Department Care Team ([facility] st Contact Info) Description 01/27/2021 Refill [facility] - [address] [address] Barbara Marx MD 193 [facility] [address] [place] [address] Sleep difficulties Social History Tobacco Use Types [...] 8:40 AM EST Sexual Orientation Straight 07/09/2019 5 :47 PM EST documented as of this encounter Miscellaneous Notes * Telephone Encounter - Barabra Marx MD - 01/27/2021 11:14 AM EDT Decline Refill for now pending patient follow-up visit tomorrow. * Telephone Encounter - Gabriela Crook MA - 01/27/2021 8:57 AM EDT Refill Clonidine. Pt has a med check tomorrow. Message to for refill. Pharm refill request documented in this encounter Plan of Treatment Not on file documented as of this encounter Visit Diagnoses Diagnosis Sleep difficulties documented in this encounter Care Teams Glove Stitcher Relationship Specialty Start Date End Date Provider, MD Norma [address] [place] [phone] PCP - General Pediatrics 03/16/23 12/07/23 Tutu Art APRN SUPERVISOR ASBESTOS REMOVAL BS MSN Consulting Physician Nephrology 07/08/21 documented as of this encounter
--- OUTSIDE RECORDS SUMMARY | 2024-10-31 14:46 | XMS_ITS | Encounter Summary ---
Author Organization [facility] Address [address] [place] [address] Phone Care Team Providers Care Fish Hatchery Worker Name Role Phone Provider, Norma ANSARI Primary Care Provider [phone] Reason for Visit * Reason Comments Med Refill Encounter Details Date Type Department Care Team (Late st Contact Info) Description 08/15/2018 Refill [facility] - [address] [address] Barbara Marx MD Moderate persistent asthma without [...] Telephone Encounter - Lorna Hodges RN - 08/29/2018 9:08 AM EST Refill already sent on 08/23/18. documented in this encounter Plan of Treatment Not on file documented as of this encounter Visit Diagnoses Diagnosis Moderate persistent asthma without complication documented in this encounter Care Teams Fish Hatchery Worker Relationship Specialty Start Date End Date Provider, MD Norma [address] [place] [address] PCP - General Pediatrics 03/16/23 12/07/23 Tutu Art APRN LAMINATING MACHINE OPERATOR BS MSN Consulting Physician Nephrology 07/08/21 documented as of this encounter
--- OUTSIDE RECORDS SUMMARY | 2024-10-31 14:46 | XMS_ITS | Encounter Summary ---
Author Organization [facility] Address [address] [place] [address] Phone Care Team Providers Care Coagulator Name Role Phone Provider, Norma ANSARI Primary Care Provider [phone] Encounter Details Date Type Department Care Team (Late st Contact Info) Description 03/09/2010 Documentation [facility] [address] [place] [address] Family Medicine, Physician [address] [place] [address] Social History Tobacco Use Types Packs/Day Years [...] on filedocumented in this encounter Care Teams Coagulator Relationship Specialty Start Date End Date Provider, MD Norma [address] [place] [address] PCP - General Pediatrics 03/16/23 12/07/23 Tutu Art APRN LEI MAKER BS MSN Consulting Physician Nephrology 07/08/21 documented as of this encounter
--- OUTSIDE RECORDS SUMMARY | 2024-10-31 14:46 | XMS_ITS | Encounter Summary ---
Author Organization [facility] Address [address] [place] [address] Phone Care Team Providers Care Mergers And Acquisitions Associate Name Role Phone Provider, [facility] Primary Care Provider [phone] Reason for Visit * Reason Comments Med Refill Encounter Details Date Type Department Care Team (Late st Contact Info) Description 11/15/2018 Refill [facility] - [address] [address] Barbara Marx MD Acute intractable headache, unspecified headache type Social History Tobacco Use Types Packs/Day [...] encounter Miscellaneous Notes * Telephone Encounter - Annabelle August LPN - 11/15/2018 4:43 PM EDT Received a refill request for Motrin. SPoke w/ pharmacy, this is a auto refill. Pt did not request refill. Advised to d/c request. documented in this encounter Plan of Treatment Not on file documented as of this encounter Visit Diagnoses Diagnosis Acute intractable headache, unspecified headache type documented in this encounter Care Teams Mergers And Acquisitions Associate Relationship Specialty Start Date End Date Provider, MD Norma [address] [place] [address] PCP - General Pediatrics 03/16/23 12/07/23 Tutu Art APRN DANCER OR CHOREOGRAPHER BS MSN Consulting Physician Nephrology 07/08/21 documented as of this encounter
--- OUTSIDE RECORDS SUMMARY | 2024-10-31 14:46 | XMS_ITS | Encounter Summary ---
Author Organization [facility] Address [address] [place] [address] Phone Care Team Providers Care Metalizer Field Operation Name Role Phone Provider, [facility] Primary Care Provider [phone] Reason for Visit * Reason Comments Med Refill Encounter Details Date Type Department Care Team (Late st Contact Info) Description 07/31/2018 Refill [facility] - [address] [address] Barbara Marx MD Moderate persistent asthma without [...] Encounter - Olga Lidia Franklin RN - 08/04/2018 9:04 AM EST Fax request today from Rosim[facility]. This is a pending order not sent? Will send now so patient has medication and give FYI to KL. One sent w/ no refills. documented in this encounter Plan of Treatment Not on file documented as of this encounter Visit Diagnoses Diagnosis Moderate persistent asthma without complication documented in this encounter Care Teams Metalizer Field Operation Relationship Specialty Start Date End Date Provider, MD Norma [address] [place] [address] PCP - General Pediatrics 03/16/23 12/07/23 Tutu Art APRN BUSINESS INSURANCE AGENT BS MSN Consulting Physician Nephrology 07/08/21 documented as of this encounter
--- OUTSIDE RECORDS SUMMARY | 2024-10-31 14:46 | XMS_ITS | Encounter Summary ---
Author Organization [facility] Address [address] [place] [address] Phone Care Team Providers Care Preforming Machine Operator Name Role Phone Provider, Norma ANSARI Primary Care Provider [phone] Encounter Details Date Type Department Care Team (Late st Contact Info) Description 09/07/2016 Documentation [facility] [address] [place], [place] [phone] Family Medicine, Physician [address] [place] [address] Social History Tobacco Use Types Packs/Day Years [...] on filedocumented in this encounter Care Teams Preforming Machine Operator Relationship Specialty Start Date End Date Provider, MD Norma [address] [place] [address] PCP - General Pediatrics 03/16/23 12/07/23 Tutu Art APRN CANCER PROGRAM COORDINATOR BS MSN Consulting Physician Nephrology 07/08/21 documented as of this encounter
--- OUTSIDE RECORDS SUMMARY | 2024-10-31 14:46 | XMS_ITS | Clinical Summary ---
Author Organization [facility] Address [address] [place] [address] Care Team Providers Care Building Serviceman Name Role Phone Barbara Marx MD Primary Care Provider [phone] Source Comments Please note that some or all of the patient's information could have additional privacy protections. State laws allow health care providers to render certain types of treatment to minors without parental consent. Please do not assume that this information can be shared solely by obtaining just the consent of the patient's parent/guardian. Please determine if all or part of the patient's care was rendered without parent/guardian involvement. And, if so, obtain the minor's consent prior to disclosure.[facility] Allergies Active Allergy Reactions Criticality Noted Date Comments Adhesive Tape-Silicones 01/21/2021 Cat Dander 01/19/2021 Dog Dander 01/19/2021 Other (Environmental) 01/19/2021 Seasonal Medications amitriptyline (ELAVIL) 50 MG tablet TAKE 1 TABLET(50 MG) BY MOUTH EVERY NIGHT 12/04/2020 Active escitalopram oxalate (LEXAPRO) 20 MG tablet TAKE 1 TABLET(20 MG) BY MOUTH EVERY MORNING 10/27/2020 Active hydrOXYzine (ATARAX) 10 MG tablet Take by mouth 03/31/2020 Active levothyroxine (SYNTHROID, LEVOTHROID) 88 MCG tablet Take 88 mcg by mouth daily Active Active Problems Problem Noted Date Diagnosed Date Papilledema 01/21/[address] 12/26/2019 Overview (01/19/2021): Placed by OBGYN Counseling and coordination of care 06/13/2019 Overview (01/19/2021): Last Assessment & Plan: Plan for RN CC team to reach out to pt over the next few weeks to ensure pt has been able to obtain the multiple f/up appointments, labs and new services discussed at today's visit, and help identify and address barriers to effective self- advocacy. Subacute autoimmune thyroiditis 11/24/2018 Overview (01/19/2021): 11/2018 TSH = 4.48, fT4 WNL 03/2020 TSH 6.34, ft4 1.01, low normal, with obesity, blood sugar 106 and ALT 44 05/2020: [facility] consult with Dr Jina Singh. Repeat TSH 6.34 but ft4 now 0.92L and anti-thyroid peroxidase ab+ >1000. Recommend weight loss and repeat labs in 2 months 10/2020: TSH 7.07, ft4 0.82 and Anti-TPA abs >1000- refer back to [facility] Last Assessment & Plan: Worsening thyroid function on recent labs with fT4 now 0.82 and TSH 7.07. Pt to call for urgent Endocrine f/up and will reach out via [facility] to Dr BERMUDEZ to make aware. Chronic migraine without aur a without status migrainosus, not intractable 10/21/2018 Overview (01/19/2021): Chronic, with mixed migraine and tension type features, wears glasses, mom with h/o Pseudotumor Cerebri. No vomiting or night time GARCIA. 10/2018: Ophtho eval WNL 10/2020: Amitiptyline 50 mg QHS, refer to [facility] for eval Last Assessment & Plan: Taking ibuprofen daily, so suspect element of rebound GARCIA, and fatigue with ongoing mood disturbance likely exacerbating her GARCIA pattern as well. Begin Amytriptyline and refer to Adult Neuro Hypercholesterolemia 06/05/2018 Overview (01/19/2021): 02/27/2018: HDL 52, non-HDL 186 H, + FH hypercholesterolemia, repeat in 2-3 mos 09/2018:HDL 48, non-HDL 185- refer to Cardiology for formal consult 10/30/18: Cards/[facility]- full fasting panel with LDL, TG and CK, rx lifestyle changes, RTC ? timeframe Last Assessment & Plan: Repeat fasting lipid panel with today's screening labs and family to reschedule overdue f/up with [facility] at [facility] Seasonal allergic rhinitis due to pollen 018 Overview (01/19/2021): Springtime predominant Last Assessment & Plan: Refill Cetirizine in anticipation of Spring pollen triggered rhinitis sx. Depression with anxiety 2017 Overview (01/19/2021): H/o depressive sx in past years, with abnormal PHQ9 including recent SI on [facility] 12/2017, but very normal/preserved function -honor roll at school 01/2018: Sertraline trial with initial good effect at 50mg, but increased sx reported 2018, dose titrated to max 100 but d/c'd for side effects 02/2019: Changed to Fluoxetine 10 mg with good effect, mild upset, [place] 3s added 03/2019: Changed to Escitalopram for [...] ? Psychiatrist 11/22/19- F/up call placed to [facility] as rica family no contact has been made. 03/2020: GAD7=14 with panic and PHQ9 16 with return of passive SI, ( pt lost her outpt [facility] therapist) Esc increased to 20, Hydroxyzene 5-10 mg PRN, refer to [facility] 11/06/2020: PROCESSING ENGINEER intake! Last Assessment & Plan: Continue Escitalopram 20 but recommend pt re-establish her previously very effective, retirement therapy services through [facility] or [facility] provider. Detailed list provided to pt and father today. Would prefer a program with prescriber option for best co-ordination of care. Moderate persistent asthma without complication 2017 Overview (01/19/2021): 12/2017 :Sx well controlled on Flovent 110 2 puffs BID 01/2018: Trial off Flovent x 1 mo 02/27/2018: supra-normal spirometry, but c/o chest tightness and SOB with exertion, Hgb WNL. 04/2018: Sig exertional cough /SOB with ACT=13 and daily albuterol need,- QVAR Redihaler 80 2P BID 11/2019: Doing well on Singulair 03/2020: Vit D=62 09/2020: Exercise intolerance symptoms ( SOB with chest tightness and cough) reported with school stairs on Singulair alone, peak flow excellent in office at 450. QVAR no longer allowed on Remedios- resume ICS with Flovent 110 2 puffs BID. Now under care of Dr Luis Fernando DEE- beginning MARY soon. Vit D 46 Last Assessment & Plan: ICS resumed and symptoms improved, but still struggling with 4 floor stair climb at school- letter for elevator use prepared for Arlen today, continue gym class. Obesity due to excess calori es without serious comorbidity with body mass index (BMI) in 95th to 98th percentile for age in pediatric patient 2017 Overview (01/19/2021): 12/2017 BMI > 90% 10/2018: BMI =94% [...] nutrition, recheck metabolic labs q 12 mos Last Assessment & Plan: Repeat metabolic screening with fasting lipids and thyroid labs Sleep difficulties 08/12/2015 Overview (01/19/2021): Trouble both falling and staying asleep-Melatonin used with good effect in the past, but currently with Depressive mood symptoms 07/2019 - Melatonin, Trazodone 25mg QHS Last Assessment & Plan: Still with significant sleep onset difficulty ad fragmented sleep overnight despite Trazodone to 150 and trial Clonidine to 0.2mg. NO obvious snoring/NIKITA concerns noted by family or pt. Refer to [facility] for formal consult Family History Medical History Relation Name Comments Hyperlipidemia Father Migraines Mother Pseudotumor cerebri Mother occured when Areln was 5 years old Diabetes type I Paternal Grandfather Relation Name Status Comments Father Mother Paternal Grandfather Social History Tobacco Use Types Packs/Day Years Used Date Smoking Tobacco: Never Smokeless Tobacco: Never Other Needs Answer Date Recorded Anything else about your child you'd like help w ith? Not on file 04/22/2023 Share good news about positive changes: Not on f ile 04/22/2023 Comments No Sex and Gender Information Value Date Recorded Sex Assigned at Not on file Legal Sex Female 1:04 AM EDT Gender Identity Not on file Sexual Orientation Not on file Last Filed Vital Signs Vital Sign Reading Time Taken Comments Blood Pressure 112/58 01/22/2021 12:00 PM EDT Pulse 74 01/22/2021 12:00 PM EDT Temperature 36.8 ??C (98.2 ??F) 01/22/2021 1 2:00 PM EDT Respiratory Rate 16 01/22/2021 12:0 0 PM EDT Oxygen Saturation 99% 01/22/2021 12: 00 PM EDT Inhaled Oxygen Concentration - - Weight 112.7 kg (248 lb 7.3 oz) 01/21/2021 3:00 PM EDT Height 159 cm (5' 2.6 ) 01/21/2021 3:00 PM EDT Body Mass Index 44.58 01/21/2021 3:00 PM EDT Plan of Treatment Health Maintenance Due Date Last Done Comments DTaP/TDAP/TD VACCINES (1 - Tdap) 2009 ADOLESCENT HIV SCREENING 12/20/2015 COVID-19 Vaccine (2 - 2023-2 5 season) 2024 12/02/2020 INFLUENZA (#1) 2024 NIRSEVIMAB VACCINES UNDER 8 MONTHS Aged Out No longer eligible b ased on patient's age to complete this topic Insurance [facility] [employer] [facility] [facility] [employer] [facility] [place] Care Teams Building Serviceman Relationship Specialty Start Date End Date Barbara Marx MD 150 [facility] [place] [address] PCP - General General Pediatrics 11/06/20
--- OUTSIDE RECORDS SUMMARY | 2024-10-31 14:46 | XMS_ITS | Encounter Summary ---
Author Organization [facility] Address [address] [place] [address] Phone Care Team Providers Care Commercial Decorator Name Role Phone Provider, Norma ANSARI Primary Care Provider [phone] Reason for Visit * Reason Comments Med Refill Encounter Details Date Type Department Care Team ([facility] st Contact Info) Description 08/15/2020 Refill [facility] [address] [address] Barbara Marx MD 193 [facility] [place] [address] Seasonal allergic rhinitis due to pollen; Moderate [...] encounter Miscellaneous Notes * Telephone Encounter - Shantell Soria LPN - 08/15/2020 9:36 AM EST Needs refill on Montelukast 10 mg. Last pe 07/2020 documented in this encounter Plan of Treatment Not on file documented as of this encounter Visit Diagnoses Diagnosis Seasonal allergic rhinitis due to pollen Moderate persistent asthma without complication documented in this encounter Care Teams Commercial Decorator Relationship Specialty Start Date End Date Provider, MD Norma [address] [place] [address] PCP - General Pediatrics 03/16/23 12/07/23 Tutu Art LEAD MANUFACTURING ENGINEERING TECH ESL TUTOR BS MSN Consulting Physician Nephrology 07/08/21 documented as of this encounter
== END 2024-10-31 13:15 | disposition home or self-care (01) ==
LOC: HO.HMCC 12:24
PROVIDERS: Visit Provider Nurse Practitioner Family
DX: Z00.00 Encounter for general adult medical examination without abnormal findings (principal); Z12.4 Encounter for screening for malignant neoplasm of cervix; Z97.5 Presence of (intrauterine) contraceptive device; R01.1 Cardiac murmur, unspecified

== ENCOUNTER → 2024-10-31 12:23 | Outpatient (BNVA) | payer BC, SELFPAY | PROVIDERS: Visit Provider Nurse Practitioner Family | DX: Z00.00 Encounter for general adult medical examination without abnormal findings (principal); R01.1 Cardiac murmur, unspecified; Z97.5 Presence of (intrauterine) contraceptive device | CPT/HCPCS: 96127 ==

== ENCOUNTER 2024-11-03 09:51 | Outpatient (REF) | payer BC, SELFPAY ==
[2024-11-03 11:40] LABS: MANUAL DIFF FLAG NO
[2024-11-03 11:52] LABS: Appearance Urine Cloudy; Basophils Absolute Auto 0.1 X10*3/uL (0.0-0.2); Basophils Percent Auto 0.6 % (0-2); Color Urine Yellow; Eosinophils Absolute Auto 0.4 X10*3/uL (0.0-0.4); Eosinophils Percent Auto 4.8 % (0-4); Glucose Urine UA Negative (Negative); Hematocrit 38.6 % (37.0-47.0); Hemoglobin 12.9 g/dl (12.0-16.0); Imm Gran Abs Auto 0.01 X10*3/uL (0.00-0.03); Imm Gran Pct Auto 0.1 % (0.0-0.4); Leukocyte Esterase Urine Small (1+) (Negative); Lymphocytes Absolute Auto 2.7 X10*3/uL (1.2-4.9); Lymphocytes Percent Auto 31.9 % (20-40); Mean Corpuscular HGB Conc 33.4 g/dl (31.0-35.0); Mean Corpuscular Hemoglobin 28.5 pg (27.0-33.0); Mean Corpuscular Volume 85.4 fL (80.0-98.0); Mean Platelet Volume 8.9 fL (9.4-12.3); Monocytes Absolute Auto 0.7 X10*3/uL (0.1-1.2); Neutrophils Absolute Auto 4.7 x10*3/uL (2.0-8.3); Neutrophils Percent Auto 54.6 % (45-73); Nitrite Urine Negative (Negative); Platelet Count 432 X10*3/uL (160-400); Red Blood Count 4.52 X10*6/uL (4.20-5.50); Red Cell Distribution Width 13.4 % (11.0-16.0); UMIC TRIGGER UACC YES; Urine Blood Negative (Negative); Urine Ketones Negative (Negative); Urine Protein Negative (Neg-Trace); White Blood Count 8.6 X10*3/uL (4.8-10.8)
[2024-11-03 12:16] LABS: Alanine Aminotransferase 11 U/L (0-31); Albumin Level 3.9 g/dL (3.5-5.0); Alkaline Phosphatase 52 U/L (39-117); Anion Gap 8 (12-20); Aspartate Amino Transferase 22 U/L (5-31); Bilirubin Total 0.6 mg/dL (0.0-1.0); Blood Urea Nitrogen 8 mg/dL (9-16); Carbon Dioxide 23 mmol/L (22-29); Chloride 112 mmol/L (96-108); Cholesterol 139 mg/dL (<200); Estimated Glomerular Filt Rate > 60; Glucose Fasting 94 mg/dL (60-99); HDL Cholesterol 39 mg/dL (>40); LDL Cholesterol Calculated 85 mg/dL (<100); Potassium 4.2 mmol/L (3.3-5.1); Sodium 139 mmol/L (135-145); Total Protein 6.6 g/dL (6.5-8.0); Triglycerides 79 mg/dL (<150)
[2024-11-03 12:22] LABS: Bacteria Urine Trace (None Seen); Hyaline Casts Urine 0-2 /LPF (0-2); RBC Urine 0-2 /HPF (0-2); UACC Culture Trigger YES
[2024-11-03 12:35] LABS: TSH reflex Free T4 1.54 uIU/mL (0.32-4.0)
== END 2024-11-03 09:52 | disposition home or self-care (01) ==
LOC: HO.HMGCLDS 09:51
PROVIDERS: PCP Nurse Practitioner Family; Visit Provider Nurse Practitioner Family
DX: Z00.00 Encounter for general adult medical examination without abnormal findings (principal); Z13.6 Encounter for screening for cardiovascular disorders
CPT/HCPCS: 36415; 80053; 80061; 81001; 81003; 84443; 85025; 87086

== ENCOUNTER 2024-11-17 08:17 | Outpatient (REF) | payer BC, SELFPAY ==
--- OUTSIDE RECORDS SUMMARY | 2024-11-17 08:19 | XMS_ITS | Data Portability ---
Author Organization [facility] [address] Address [address] [place] [address] Care Team Providers Care Electrode Cleaning Machine Operator Name Role Phone LANI REYNA Materials Management Supervisor Unavailable Assessment No assessment recorded. Plan of Treatment Reminders Order Date Submit Date Provider Last Modified By Organization Details Last Modified Time Details Appointments None recorded. Lab None recorded. Referral None recorded. Procedures None recorded. Surgeries None recorded. Imaging None recorded. Medication Orders baclofen 10 mg tablet 2023 024 [id number], [address] [place], [place], [id number], 16:12:53 Patient TargetsNo targets recorded. Patient Instructions Encounter Date Encounter Id Patient Instructions Last Modified By Organization Details Last Modified Time 01/12/2024 [id number] neck pain: care instructions nmakris Not available [...] Details Recorded Time Disorder of thyroid gland 57242621 Active 022 CHANDLER LOZANO null, [place] - [facility] 2 09:05:27 Bipolar disorder 27756911 Active 022 CHANDLER LOZANO null, [place] - [facility] 2 09:06:06 Asthma 599123470 Active 024 Tigist Axis null, PA - [facility] 4 12:13:09 Strain of neck muscle 650587069 Active 024 CHARLY HORTA NP [address] [place], [address] , [place] - [facility] 4 12:39:02 Minor head injury 851934370 Active 024 CHARLY HORTA NP [address] [place], [address] , [place] - [facility] 4 12:39:18 Problem Notes None recorded. Medical Equipment None Reported. Allergies Allergen ID Allergen Name Allergen Category Reaction Reaction Severity Criticality Documentation Date Start Date Code Code System Note Provider Name and Address Organization Details Recorded Time 54725 adhesive tape environme nt,medica tion rash Not available low 07/28/2022 10108 UNK CHANDLER LOZANO null, [place] - [facility] [...] Address Organization Details Last Updated DateTime 2 44067.5 8 g 98 % 38.8 kg/m2 157.48 cm 16 /min 97.7 [degF] 99 % 99 % 75 /min 119 mm[Hg] 74 mm[Hg] CHANDLER LOZANO [facility] 2 09:10:36 Date Recorded Body height Body mass index (BMI) Body weight Oxygen saturation Oxygen saturation in Arterial blood by Pulse oximetry Heart rate Respiratory rate Body temperature Pain severity - 0-10 verbal numeric rating [Score] - Reported Systolic blood pressure Diastolic blood pressure Provider Name and Address Organization Details Last Updated DateTime 4 157.48 cm 36.8 kg/m2 75256.0 7 g 100 % 100 % 67 [...] Updated DateTime 4 157.48 cm 36.8 kg/m2 80457.0 7 g 2 18 /min 97.7 [degF] [...] SNOMED-CT Code Diagnosis ICD10 Code Diagnosis Note [id number] [address] [address] 04/05/2020 10:38:35 04/05/2020 13:12:19 [id number] [place] [address] [address] 07/28/2022 08:10:27 07/28/2022 10:02:09 History and physical examination, pre-employment 307288272 Z02.1 [id number] [place] [address] [place] [address] 01/12/2024 11:55:36 01/12/2024 12:56:54 Strain of neck muscle 411624767 S16.1XXA You are being diagnosed with a [...] Dizziness. light headedness Thank you for using [employer] . Please feel free to contact us if you have any questions or concerns. Minor head injury 067404 006 S09.90XA [id number] [facility] Brower [address] [place] [address] 01/16/2024 08:06:00 01/16/2024 08:26:46 Muscle spasm of cervical muscle of neck 6335508394 04 M62.838 You were seen to follow [...] Siddiqi Member ID Guarantor Name 04/05/2020 1 [facility] [employer] - TOGETHER (MEDICAID HMO) [id number] Arlen Revere [id number] 1 Arlen Revere 07/28/2022 FEE FOR SERVICE Arlen Revere 01/12/2024 [facility] [employer] Arlen Revere 01/16/2024 [facility] [employer] Arlen Revere Notes Date Note Type Note Provider Name and Address Organization Details Recorded Time 07/28/2022 text/html pre-employment ROSALINDA MURDOCK MD [address] [place], [address], [place] - [facility] 07/28/2022 09:44:49 01/16/2024 text/html 23 y/o female returns to follow on injury sustained at work 4 days ago. She was hit by a thrown chair and was having neck and head pain. She states her pain is minimal now, and she is ready to go back to work.She was able to rest the last 3 days MICKI Brower [address] [place], [address], [place] [employer] [facility] 01/16/2024 08:25:46 OBGyn Episode No OBEpisode recorded.
--- OUTSIDE RECORDS SUMMARY | 2024-11-17 08:19 | XMS_ITS | Encounter Summary ---
Author Organization [facility] Address [address] [place] [address] Phone Care Team Providers Care Field Support Engineer Name Role Phone Provider, Norma ANSARI Primary Care Provider [phone] Reason for Visit * Reason Comments Med Refill Encounter Details Date Type Department Care Team ([facility] st Contact Info) Description 04/27/2021 Refill [facility] [address] [address] Barbara Marx MD 193 [facility] [place] [address] Depression with anxiety Social History Tobacco Use [...] disorder documented in this encounter Care Teams Field Support Engineer Relationship Specialty Start Date End Date Provider, MD Norma [address] [place] [phone] PCP - General Pediatrics 03/16/23 12/07/23 Tutu Art APRN ROVING SIZER BS MSN Consulting Physician Nephrology 07/08/21 11/08/24 documented as of this encounter
--- OUTSIDE RECORDS SUMMARY | 2024-11-17 08:19 | XMS_ITS | Encounter Summary ---
Author Organization [facility] Address [address] [place] [address] Phone Care Team Providers Care All Around Patternmaker Name Role Phone Provider, [facility] Primary Care Provider [phone] Reason for Visit * Reason Onset Date Comments Med Refill Med Refill 02/20/2020 Encounter Details Date Type Department Care Team (Late st Contact Info) Description 02/20/2020 Refill [facility] [place] [address] [place] [address] Bee Rivas MD [address] [place] [address] Moderate persistent asthma without complication Social History [...] complication documented in this encounter Care Teams All Around Patternmaker Relationship Specialty Start Date End Date Provider, MD Norma [address] [place] [phone] PCP - General Pediatrics 03/16/23 12/07/23 Tutu Art APRN SAND CUTTER BS MSN Consulting Physician Nephrology 07/08/21 11/08/24 documented as of this encounter
--- OUTSIDE RECORDS SUMMARY | 2024-11-17 08:19 | XMS_ITS | Encounter Summary ---
Author Organization [facility] Address [address] [place] [address] Phone Care Team Providers Care Dormitory Supervisor Name Role Phone Provider, Norma ANSARI Primary Care Provider [phone] Encounter Details Date Type Department Care Team (Late st Contact Info) Description 09/07/2016 Documentation [facility] [place] [address] [place], [place] [id number] Family Medicine, Physician [address] [place] [address] Social History Tobacco Use Types Packs/Day Years [...] on filedocumented in this encounter Care Teams Dormitory Supervisor Relationship Specialty Start Date End Date Provider, MD Norma [address] [place] [address] PCP - General Pediatrics 03/16/23 12/07/23 Tutu Art APRN PRESSER AND SHAPER KNITTED GOODS BS MSN Consulting Physician Nephrology 07/08/21 11/08/24 documented as of this encounter
--- OUTSIDE RECORDS SUMMARY | 2024-11-17 08:19 | XMS_ITS | Encounter Summary ---
Author Organization [facility] Address [address] [place] [address] Phone Care Team Providers Care Oil Recovery Unit Operator Name Role Phone Provider, [facility] Primary Care Provider [phone] Reason for Visit * Reason Comments Med Refill Encounter Details Date Type Department Care Team (Late st Contact Info) Description 02/12/2020 Refill [facility] - [address] [address] Barbara Marx MD 193 [facility] [address] [place] [address] Seasonal allergic rhinitis due to pollen; Moderate [...] complication documented in this encounter Care Teams Oil Recovery Unit Operator Relationship Specialty Start Date End Date Provider, MD Norma [address] [place] [address] PCP - General Pediatrics 03/16/23 12/07/23 Tutu Art APRN MATERIAL HANDLER FLOORPERSON BS MSN Consulting Physician Nephrology 07/08/21 11/08/24 documented as of this encounter
--- OUTSIDE RECORDS SUMMARY | 2024-11-17 08:19 | XMS_ITS | Encounter Summary ---
Author Organization [facility] Address [address] [place] [address] Phone Care Team Providers Care Radiologist Diagnostic Name Role Phone Provider, Norma ANSARI Primary Care Provider [phone] Encounter Details Date Type Department Care Team (Late st Contact Info) Description 03/09/2010 Documentation [facility] [place] Medicine [address] [place] [address] Family Medicine, Physician [address] [place] [address] Social History Tobacco Use Types Packs/Day Years [...] on filedocumented in this encounter Care Teams Radiologist Diagnostic Relationship Specialty Start Date End Date Provider, MD Norma [address] [place] [address] PCP - General Pediatrics 03/16/23 12/07/23 Tutu Art APRN SUPPORT TEAM MEMBER BS MSN Consulting Physician Nephrology 07/08/21 11/08/24 documented as of this encounter
--- OUTSIDE RECORDS SUMMARY | 2024-11-17 08:19 | XMS_ITS | Encounter Summary ---
Author Organization [facility] Address [address] [place] [address] Phone Care Team Providers Care Rubber Mixer Name Role Phone Provider, Norma ANSARI Primary Care Provider [phone] Encounter Details Date Type Department Care Team (Late st Contact Info) Description 03/24/2017 Conversion Encounter [facility] [address] [place] [address] Social History Tobacco Use Types Packs/Day Years [...] on filedocumented in this encounter Care Teams Rubber Mixer Relationship Specialty Start Date End Date Provider, MD Norma [address] [place] [address] PCP - General Pediatrics 03/16/23 12/07/23 Tutu Art APRN SALVAGE GRINDER BS MSN Consulting Physician Nephrology 07/08/21 11/08/24 documented as of this encounter
--- OUTSIDE RECORDS SUMMARY | 2024-11-17 08:19 | XMS_ITS | Clinical Summary ---
Author Organization [facility] Address [address] [place] [address] Care Team Providers Care Extension Division Director Name Role Phone Barbara Marx MD Primary Care Provider [phone] Source Comments Please note that some or [...] so, obtain the minor's consent prior to disclosure.[facility] Allergies Active Allergy Reactions Criticality Noted [...] reschedule overdue f/up with Dr. Lino at [facility] Seasonal allergic rhinitis due to pollen [...] 10 mg with good effect, mild upset, Napoleon 3s added 03/2019: Changed to Escitalopram for [...] ? Psychiatrist 11/22/19- F/up call placed to [facility] as rica family no contact has been made. 03/2020: GAD7=14 with panic and PHQ9 16 with return of passive SI, ( pt lost her outpt [facility] therapist) Esc increased to 20, Hydroxyzene 5-10 mg PRN, refer to [facility] 11/06/2020: INSTRUMENT TESTER intake! Last Assessment & Plan: Continue Escitalopram 20 but recommend pt re-establish her previously very effective, alf therapy services through [facility] or [facility] provider. Detailed list provided to pt [...] Migraines Mother Pseudotumor cerebri Mother occured when Arlen was 7 years old Diabetes type I [...] patient's age to complete this topic Insurance [facility] [employer] [facility] (Real Time Tomography) [facility] [employer] [facility] (Real Time Tomography) Care Teams Extension Division Director Relationship Specialty Start Date End Date Barbara Marx MD 150 [facility] [place] [address] PCP - General General Pediatrics 11/06/20
--- OUTSIDE RECORDS SUMMARY | 2024-11-17 08:19 | XMS_ITS | Encounter Summary ---
Author Organization [facility] Address [address] [place] [address] Phone Care Team Providers Care Product Development Consultant Name Role Phone Provider, [facility] Primary Care Provider [phone] Reason for Visit * Reason Comments Med Refill Encounter Details Date Type Department Care Team ([facility] st Contact Info) Description 01/27/2021 Refill [facility] - [address] [address] Barbara Marx MD 193 [facility] [place] [address] Sleep difficulties Social History Tobacco Use Types [...] Telephone Encounter - Barbara Marx MD - 01/27/2021 11:14 AM EDT [...] difficulties documented in this encounter Care Teams Product Development Consultant Relationship Specialty Start Date End Date Provider, MD Norma [address] [place] [address] PCP - General Pediatrics 03/16/23 12/07/23 Tutu Art APRN STRAINER TENDER BS MSN Consulting Physician Nephrology 07/08/21 11/08/24 documented as of this encounter
--- OUTSIDE RECORDS SUMMARY | 2024-11-17 08:19 | XMS_ITS | Encounter Summary ---
Author Organization [facility] Address [address] [place] [address] Phone Care Team Providers Care Family Independence Case Manager Name Role Phone Provider, Norma ANSARI Primary Care Provider [phone] Reason for Visit * Reason Comments Med Refill Encounter Details Date Type Department Care Team ([facility] st Contact Info) Description 05/27/2021 Refill [facility] - [address] [address] Barbara Marx MD 193 [facility] 2 [place] [address] Depression with anxiety Social History Tobacco Use [...] disorder documented in this encounter Care Teams Family Independence Case Manager Relationship Specialty Start Date End Date Provider, MD Norma [address] [place] [address] PCP - General Pediatrics 03/16/23 12/07/23 Tutu Art APRN JIGGER CROWN POUNCING MACHINE OPERATOR BS MSN Consulting Physician Nephrology 07/08/21 11/08/24 documented as of this encounter
--- OUTSIDE RECORDS SUMMARY | 2024-11-17 08:19 | XMS_ITS | Encounter Summary ---
Author Organization [facility] Address [address] [place] [address] Phone Care Team Providers Care Kieselguhr Regenerator Operator Name Role Phone Provider, [facility] Primary Care Provider [phone] Reason for Visit * Reason Comments Med Refill Encounter Details Date Type Department Care Team (Late st Contact Info) Description 07/31/2018 Refill [facility] - [address] [address] Barbara Marx MD Moderate persistent asthma without [...] complication documented in this encounter Care Teams Kieselguhr Regenerator Operator Relationship Specialty Start Date End Date Provider, MD Norma [address] [place] [address] PCP - General Pediatrics 03/16/23 12/07/23 Tutu Art APRN SOFTBALL COACH BS MSN Consulting Physician Nephrology 07/08/21 11/08/24 documented as of this encounter
--- OUTSIDE RECORDS SUMMARY | 2024-11-17 08:19 | XMS_ITS | Encounter Summary ---
Author Organization [facility] Address [address] [place] [address] Phone Care Team Providers Care Electric Deicer Assembler Name Role Phone Provider, [facility] Primary Care Provider [phone] Reason for Visit * Reason Comments Med Refill Encounter Details Date Type Department Care Team ([facility] st Contact Info) Description 12/01/2019 Refill [facility] - [address] [place] [address] Barbara Marx MD 193 [facility] [address] [place] [address] Mood disorder of depressed type; Moderate persistent [...] complication documented in this encounter Care Teams Electric Deicer Assembler Relationship Specialty Start Date End Date Provider, MD Norma [address] [place] [address] PCP - General Pediatrics 03/16/23 12/07/23 Tutu Art APRN SUBWAY TRAIN DRIVER BS MSN Consulting Physician Nephrology 07/08/21 11/08/24 documented as of this encounter
--- OUTSIDE RECORDS SUMMARY | 2024-11-17 08:19 | XMS_ITS | Encounter Summary ---
Author Organization [facility] Address [address] [place] [address] Phone Care Team Providers Care Dot Etcher Name Role Phone Provider, Norma ANSARI Primary Care Provider [phone] Encounter Details Date Type Department Care Team (Late st Contact Info) Description 03/09/2010 [place]ation [facility] [place] [address] [place] [address] Family Medicine, Physician [address] [place] [address] Social History Tobacco Use Types Packs/Day Years [...] on filedocumented in this encounter Care Teams Dot Etcher Relationship Specialty Start Date End Date Provider, MD Norma [address] [place] [address] PCP - General Pediatrics 03/16/23 12/07/23 Tutu Art APRN COMMERCIAL KITCHEN SERVICE TECHNICIAN BS MSN Consulting Physician Nephrology 07/08/21 11/08/24 documented as of this encounter
--- OUTSIDE RECORDS SUMMARY | 2024-11-17 08:19 | XMS_ITS | Encounter Summary ---
Author Organization [facility] Address [address] [place] [address] Phone Care Team Providers Care Dairy Lab Technician Name Role Phone Provider, [facility] Primary Care Provider [phone] Reason for Visit * Reason Comments Med Refill Encounter Details Date Type Department Care Team ([facility] st Contact Info) Description 04/01/2020 Refill [facility] - [address] [place] [address] Barbara Marx MD 193 [facility] [address] [place] [address] Depression with anxiety; Hypercholesterolemia; Chronic migraine without [...] intractable documented in this encounter Care Teams Dairy Lab Technician Relationship Specialty Start Date End Date Provider, MD Norma [address] [place] [address] PCP - General Pediatrics 03/16/23 12/07/23 Tutu Art APRN BOOKING PRIZER BS MSN Consulting Physician Nephrology 07/08/21 11/08/24 documented as of this encounter
--- OUTSIDE RECORDS SUMMARY | 2024-11-17 08:19 | XMS_ITS | Encounter Summary ---
Author Organization [facility] Address [address] [place] [address] Phone Care Team Providers Care Company Doctor Name Role Phone Provider, [facility] Primary Care Provider [phone] Reason for Visit * Reason Comments Med Refill Encounter Details Date Type Department Care Team (Late st Contact Info) Description 11/03/2019 Refill [facility] - [address] [address] Barbara Marx MD 193 [facility] [address] [place] [address] Sleep difficulties Social History Tobacco Use Types [...] difficulties documented in this encounter Care Teams Company Doctor Relationship Specialty Start Date End Date Provider, MD Norma [address] [place] [address] PCP - General Pediatrics 03/16/23 12/07/23 Tutu Art APRN CANCELLATION CLERK BS MSN Consulting Physician Nephrology 07/08/21 11/08/24 documented as of this encounter
--- OUTSIDE RECORDS SUMMARY | 2024-11-17 08:19 | XMS_ITS | Encounter Summary ---
Author Organization [facility] Address [address] [place] [address] Phone Care Team Providers Care Plant Assigner Name Role Phone Provider, [facility] Primary Care Provider [phone] Reason for Visit * Reason Comments Med Refill Encounter Details Date Type Department Care Team (Late st Contact Info) Description 12/22/2019 Refill [facility] - [address] [address] Barbara Marx MD 193 [facility] [address] [place] [address] Depression with anxiety Social History Tobacco Use [...] disorder documented in this encounter Care Teams Plant Assigner Relationship Specialty Start Date End Date Provider, MD Norma [address] [place] [address] PCP - General Pediatrics 03/16/23 12/07/23 Tutu Art APRN INVESTIGATION CLERK BS MSN Consulting Physician Nephrology 07/08/21 11/08/24 documented as of this encounter
--- OUTSIDE RECORDS SUMMARY | 2024-11-17 08:19 | XMS_ITS | Encounter Summary ---
Author Organization [facility] Address [address] [place] [address] Phone Care Team Providers Care Digital Field Service Technician Name Role Phone Provider, Norma ANSARI Primary Care Provider [phone] Encounter Details Date Type Department Care Team (Late st Contact Info) Description 05/08/2012 Documentation [facility] [place] Family Medicine [address] [place] [address] Family Medicine, Physician [address] [place] [address] Social History Tobacco Use Types Packs/Day Years [...] on filedocumented in this encounter Care Teams Digital Field Service Technician Relationship Specialty Start Date End Date Provider, MD Norma [address] [place] [address] PCP - General Pediatrics 03/16/23 12/07/23 Tutu Art APRN TREKKING GUIDE BS MSN Consulting Physician Nephrology 07/08/21 11/08/24 documented as of this encounter
--- OUTSIDE RECORDS SUMMARY | 2024-11-17 08:19 | XMS_ITS | Encounter Summary ---
Author Organization [facility] Address [address] [place] [address] Phone Care Team Providers Care Dietary Server Name Role Phone Provider, Norma ANSARI Primary Care Provider [phone] Reason for Visit * Reason Comments Med Refill Encounter Details Date Type Department Care Team (Late st Contact Info) Description 08/15/2018 Refill [facility] - [address] [address] Barbara Marx MD Moderate persistent asthma without [...] complication documented in this encounter Care Teams Dietary Server Relationship Specialty Start Date End Date Provider, MD Norma [address] [place] [phone] PCP - General Pediatrics 03/16/23 12/07/23 Tutu Art APRN NATIONAL SALES ASSOCIATE BS MSN Consulting Physician Nephrology 07/08/21 11/08/24 documented as of this encounter
--- OUTSIDE RECORDS SUMMARY | 2024-11-17 08:19 | XMS_ITS | Encounter Summary ---
Author Organization [facility] Address [address] [place] [address] Phone Care Team Providers Care Consulting Solution Manager Name Role Phone Provider, Norma ANSARI Primary Care Provider [phone] Reason for Visit * Reason Comments Med Refill Encounter Details Date Type Department Care Team (Late st Contact Info) Description 08/23/2018 Refill [facility] - [address] [address] Barbara Marx MD Moderate persistent asthma without [...] complication documented in this encounter Care Teams Consulting Solution Manager Relationship Specialty Start Date End Date Provider, MD Norma [address] [place] [phone] PCP - General Pediatrics 03/16/23 12/07/23 Tutu Art APRN VISCOSE CELLAR CHARGE HAND BS MSN Consulting Physician Nephrology 07/08/21 11/08/24 documented as of this encounter
--- OUTSIDE RECORDS SUMMARY | 2024-11-17 08:19 | XMS_ITS | Encounter Summary ---
Author Organization [facility] Address [address] [place] [address] Phone Care Team Providers Care Curriculum Coach Name Role Phone Provider, Norma ANSARI Primary Care Provider [phone] Encounter Details Date Type Department Care Team (Late st Contact Info) Description 03/09/2010 Documentation [facility] [place] [address] [place] [address] Family Medicine, Physician [address] [place] [address] Social History Tobacco Use Types Packs/Day Years [...] on filedocumented in this encounter Care Teams Curriculum Coach Relationship Specialty Start Date End Date Provider, MD Norma [address] [place] [address] PCP - General Pediatrics 03/16/23 12/07/23 Tutu Art APRN YOUTH WORKER BS MSN Consulting Physician Nephrology 07/08/21 11/08/24 documented as of this encounter
--- OUTSIDE RECORDS SUMMARY | 2024-11-17 08:19 | XMS_ITS | Encounter Summary ---
Author Organization [facility] Address [address] [place] [address] Phone Care Team Providers Care Pole Climber Name Role Phone Provider, [facility] Primary Care Provider [phone] Reason for Visit * Reason Comments Med Refill Encounter Details Date Type Department Care Team ([facility] st Contact Info) Description 05/12/2020 Refill [facility] - [address] [address] Barbara Marx MD 193 [facility] [address] [place] [address] Sleep difficulties Social History Tobacco Use Types [...] difficulties documented in this encounter Care Teams Pole Climber Relationship Specialty Start Date End Date Provider, MD Norma [address] [place] [address] PCP - General Pediatrics 03/16/23 12/07/23 Tutu Art APRN SALES PROPERTY MANAGER BS MSN Consulting Physician Nephrology 07/08/21 11/08/24 documented as of this encounter
--- OUTSIDE RECORDS SUMMARY | 2024-11-17 08:19 | XMS_ITS | Encounter Summary ---
Author Organization [facility] Address [address] [place] [address] Phone Care Team Providers Care Logistics Associate Name Role Phone Provider, Norma ANSARI Primary Care Provider [phone] Reason for Visit * Reason Comments Med Refill Encounter Details Date Type Department Care Team ([facility] st Contact Info) Description 08/15/2020 Refill [facility] [address] [address] Barbara Marx MD 193 [facility] 2 [place] [address] Seasonal allergic rhinitis due to pollen; Moderate [...] complication documented in this encounter Care Teams Logistics Associate Relationship Specialty Start Date End Date Provider, MD Norma [address] [place] [address] PCP - General Pediatrics 03/16/23 12/07/23 Tutu Art ROLL TENDER BRANCH BILLING PAYROLL CLERK BS MSN Consulting Physician Nephrology 07/08/21 11/08/24 documented as of this encounter
--- OUTSIDE RECORDS SUMMARY | 2024-11-17 08:19 | XMS_ITS | Clinical Summary ---
Author Organization [facility] Address [address] [place] [phone] Phone Care Team Providers Care Irrigation Teacher Name Role Phone Unavailable Primary Care Provider [...] with planned follow-ups 02/2021 with Neuro/Optho 11/2021: [facility] Adult Neuro- Mild papilledema again on exam-restarted [...] blood sugar 106 and ALT 44 05/2020: [facility] Pedi Endo consult with Dr Jina Singh. [...] reschedule overdue f/up with Dr. Lino at [facility] Assessment & Plan (07/09/2019 4:46 PM EST): Needs to reschedule f/up with Dr Lino, will plan repeat fasting labs Assessment & Plan (06/10/2018 5:41 PM EDT): Repeat fasting lipid panel, if consistently abnormal, refer to Cardiology Seasonal allergic rhinitis due to pollen 018 Overview (07/05/2021): Springtime predominant, but 10/2020 skin testing at [facility] + to birch, grass, ragweed, dust mites, [...] flow excellent in office at 450. ( To=822 cm) resume ICS with Flovent 110 2 [...] for winter.Flu shot done already. Refer to [facility] to explore AIT Assessment & Plan (05/05/2020 [...] 10 mg with good effect, mild upset, Madison 3s added 03/2019: Changed to Escitalopram for [...] ? Psychiatrist 11/22/19- F/up call placed to [facility] as rica family no contact has been made. 03/2020: GAD7=14 with panic and PHQ9 16 with return of passive SI, ( pt lost her outpt [facility] therapist) Esc increased to 20, Hydroxyzene 5-10 mg PRN, refer to IB 11/06/2020: [facility] intake! Assessment & Plan (05/29/2021 7:17 PM EDT): No refill needed on Escitalopram but trial as QHS administration for the next 4 days until first intake appointment with [facility] psychiatry. Arlen to request therapist at [facility], but may receive bridging CBT services as desired with our [facility] team for the next 3 months while waiting. Assessment & Plan (10/09/2020 1:35 PM EST): Continue Escitalopram 20 but recommend pt re-establish her previously very effective, home service consultant therapy services through [facility] or [facility] provider. Detailed list provided to pt and [...] could never remember to take her OCPs. Arlen still without therapist or psychiatrist at this time. Plan refer to new [facility] acute care program for med management assistance. Assessment & Plan (05/05/2020 1:16 PM EDT): Continue Esc at current 20 mg QD, trial Hydroxyzene at 15 mg, then 20mg dose as needed for her PRN anxiety episodes. May also try taking 50 mg=1/2 tab of her current Trazodone as a PRN instead. Pt shown the [facility] website so she can try to find a therapist who will be a good fit for half-way support. Doing well enough that no longer makes sense to involve our short term [facility] team. Refer to [facility] Telepsychiatry program with understanding that first [...] do to resume her therapy services through [facility], but for more urgent stabilization will temporize [...] therapy support d/t staff turnover at [facility]. Suggest pt reach out to her previous in-home therapist to see if services could be re-instated given the change in her mood sx and discontinuity of outpatient therapy support.Will discuss with integrated Behavioral health providers, ? Possible temporary support during transition. Assessment & Plan (11/19/2019 3:07 PM EDT): Continue Escitalopram 15 mg QD. Arlen prefers that another call be placed to [facility] to re-request transfer to child psychiatry for home service consultant care. Assessment & Plan (07/10/2019 8:30 AM [...] symptoms but BMI acceleration 2019- refer to [facility] Sleep Med for formal consult Assessment & [...] noted by family or pt. Refer to [facility] Sleep Med for formal consult Assessment & [...] reach out directly to her Math and Malagasy teachers as well as her Guidance Counselor. [...] Dysmenorrhea, mood dysregulation and acne concerns at [facility] 12/2017. No FH DVT or BCA, normal [...] AM EST): Nuvaring poorly tolerated/ineffective- refer to COMPUTER SUPPORT TECHNICIAN but begin trial Apri in the [...] EE/Norgestimate) started 12/30/2017 With negative GC screen Encounters Date Type Department Care Team Description 11/09/2024 Telephone [facility] - [address] [address] Bee Rivas MD Medical Records from Last 3 Months Immunizations Immunization Administration Dates Next Due COVID-19 [...] 04/15/2021, 04/13/2020, Additional history exists COVID-19 Vaccine (2023-2 5 season) 2024 06/10/2022, 08/23/2021, 12/23/2020, Additional [...] Completed 03/02/2019, 015 Procedures * Due to [place] law, this organization might not be sharing sensitive test results. Procedure Name Priority Date/Time Associated Diagnosis Comments CHLAMYDIA AND GONORRHEA, AMPLIFIED Routine 07/09/2019 4:18 PM EST Screen for STD (sexually transmitted disease) from Last 3 Months or Most Recently Relevant to Health Maintenance Results * Due to [place] law, this organization might not be sharing sensitive test results. * Chlamydia and Gonorrhoea, Amplified (07/09/2019 4:18 PM EST) Chlamydia Trachomatis, DNA Probe NEGATIVE (NEG) [facility] Comment: No Chlamydia Trachomatis RNA detected in this patient's sample ? (REFERENCE RANGE/NORMAL VALUE: NOT DETECTED) ? Note: This test uses tailer in- mediated amplification method to detect rRNA from C. Trachomatis URINE GC AMP PROBE NEGATIVE (NEG) [facility] Comment: No Neisseria Gonorrhoeae RNA detected in this patient's sample ? (REFERENCE RANGE/NORMAL VALUE: NOT DETECTED) ? NOTE: This test uses tailer in-mediated amplification method to detect rRNA from N.Gonorrhoeae. [...] without risk of sexual abuse. Consult the [facility] if needed. Contact phone number . Therapeutic failure or success cannot be determined with the Aptima Combo2 assay since nucleic acid may persist following appropriate antimicrobial therapy. The Centers for Disease Control and Prevention (CDC) recommends confirmatory retesting using culture or a different nucleic acid amplification test when positive results occur, if indicated. Testing performed or reported by [facility], a Service of [facility], [facility] [place] [address] Urine 07/09/2019 4:18 PM EST 07/09/2019 8:16 PM EST Barbara Marx MD LAB MICROBIOLOGY - GENERAL SANDRA RAMIREZ Final Result [facility] from Last 3 Months or Most Recently Relevant to Health Maintenance
--- OUTSIDE RECORDS SUMMARY | 2024-11-17 08:19 | XMS_ITS | Encounter Summary ---
Author Organization [facility] Address [address] [place] [address] Phone Care Team Providers Care Pencil Maker Name Role Phone Provider, [facility] Primary Care Provider [phone] Reason for Visit * Reason Comments Med Refill Encounter Details Date Type Department Care Team (Late st Contact Info) Description 11/15/2018 Refill [facility] - [address] [address] Barbara Marx MD Acute intractable headache, unspecified [...] type documented in this encounter Care Teams Pencil Maker Relationship Specialty Start Date End Date Provider, MD Norma [address] [place] [phone] PCP - General Pediatrics 03/16/23 12/07/23 Tutu Art APRN COMMUNITY SERVICE DIRECTOR BS MSN Consulting Physician Nephrology 07/08/21 11/08/24 documented as of this encounter
--- OUTSIDE RECORDS SUMMARY | 2024-11-17 08:19 | XMS_ITS | Encounter Summary ---
Author Organization [facility] Address [address] [place] [address] Phone Care Team Providers Care Lock Maintenance Supervisor Name Role Phone Provider, Norma ANSARI Primary Care Provider [phone] Reason for Visit * Reason Onset Date Comments Med Refill Med Refill 02/20/2020 Encounter Details Date Type Department Care Team (Late st Contact Info) Description 02/19/2020 Refill [facility] - [address] [address] Barbara Marx MD [address] [facility] [address] [place] [address] Seasonal allergic rhinitis due to pollen; Moderate [...] complication documented in this encounter Care Teams Lock Maintenance Supervisor Relationship Specialty Start Date End Date Provider, MD Norma [address] [place] [phone] PCP - General Pediatrics 03/16/23 12/07/23 Tutu Art APRN HARDWOOD FLOORING SPECIALIST BS MSN Consulting Physician Nephrology 07/08/21 11/08/24 documented as of this encounter
--- OUTSIDE RECORDS SUMMARY | 2024-11-17 08:19 | XMS_ITS | Encounter Summary ---
Author Organization [facility] Address [address] [place] [address] Phone Care Team Providers Care Wrist Liner Name Role Phone Provider, Norma ANSARI Primary Care Provider [phone] Reason for Visit * Reason Comments Med Refill Encounter Details Date Type Department Care Team (Late st Contact Info) Description 02/20/2019 Refill [facility] - [address] [address] Barbara Marx MD Mood disorder of depressed [...] type documented in this encounter Care Teams Wrist Liner Relationship Specialty Start Date End Date Provider, MD Norma [address] [place] [phone] PCP - General Pediatrics 03/16/23 12/07/23 Tutu Art APRN RESIDENTIAL FINISH CARPENTER BS MSN Consulting Physician Nephrology 07/08/21 11/08/24 documented as of this encounter
--- OUTSIDE RECORDS SUMMARY | 2024-11-17 08:19 | XMS_ITS | Encounter Summary ---
Author Organization [facility] Address [address] [place] [address] Phone Care Team Providers Care Semiconductor Wafers Saw Operator Name Role Phone Provider, [facility] Primary Care Provider [phone] Reason for Visit * Reason Comments Med Refill Encounter Details Date Type Department Care Team (Late st Contact Info) Description 03/19/2020 Refill [facility] - [address] [address] Barbara Marx MD [address] [facility] [address] [place] [address] Sleep difficulties Social History Tobacco Use Types [...] difficulties documented in this encounter Care Teams Semiconductor Wafers Saw Operator Relationship Specialty Start Date End Date Provider, MD Norma [address] [place] [phone] PCP - General Pediatrics 03/16/23 12/07/23 Tutu Art APRN TIE TAMPER BS MSN Consulting Physician Nephrology 07/08/21 11/08/24 documented as of this encounter
--- OUTSIDE RECORDS SUMMARY | 2024-11-17 08:19 | XMS_ITS | Encounter Summary ---
Author Organization [facility] Address [address] [place] [address] Phone Care Team Providers Care Tube Bending Machine Operator Name Role Phone Provider, [facility] Primary Care Provider [phone] Reason for Visit * Reason Comments Med Refill Encounter Details Date Type Department Care Team ([facility] st Contact Info) Description 10/31/2020 Refill [facility] - [address] [address] Barbara Marx MD [address] [facility] [address] [place] [address] Chronic migraine without aura without status migrainosus, [...] intractable documented in this encounter Care Teams Tube Bending Machine Operator Relationship Specialty Start Date End Date Provider, MD Norma [address] [place] [phone] PCP - General Pediatrics 03/16/23 12/07/23 Tutu Art APRN DIRECTOR INDUSTRIAL RELATIONS BS MSN Consulting Physician Nephrology 07/08/21 11/08/24 documented as of this encounter
--- OUTSIDE RECORDS SUMMARY | 2024-11-17 08:19 | XMS_ITS | Encounter Summary ---
Author Organization [facility] Address [address] [place] [address] Phone Care Team Providers Care Aerospace Engineer Name Role Phone Provider, Norma ANSARI Primary Care Provider [phone] Reason for Visit * Reason Comments Med Refill Encounter Details Date Type Department Care Team (Late st Contact Info) Description 02/19/2019 Refill [facility] - [address] [address] Barbara Marx MD Primary dysmenorrhea Social History [...] Dysmenorrhea documented in this encounter Care Teams Aerospace Engineer Relationship Specialty Start Date End Date Provider, MD Norma [address] [place] [phone] PCP - General Pediatrics 03/16/23 12/07/23 Tutu Art APRN GALLERY OR MUSEUM TECHNICIAN BS MSN Consulting Physician Nephrology 07/08/21 11/08/24 documented as of this encounter
--- OUTSIDE RECORDS SUMMARY | 2024-11-17 08:20 | XMS_ITS | Encounter Summary ---
Author Organization [facility] Address [address] [place] [address] Phone Care Team Providers Care Filling Hauler Name Role Phone Provider, [facility] Primary Care Provider [phone] Reason for Visit * Reason Comments Med Refill Encounter Details Date Type Department Care Team (Late st Contact Info) Description 10/05/2017 Refill [facility] [place] [address] [place] [address] Mell Verde DO [address] [place] [address] Mild persistent asthma without complication (Primary Dx); [...] Dysmenorrhea documented in this encounter Care Teams Filling Hauler Relationship Specialty Start Date End Date Provider, MD Norma [address] [place] [phone] PCP - General Pediatrics 03/16/23 12/07/23 Tutu Art APRN TECHNOLOGY ADVISOR BS MSN Consulting Physician Nephrology 07/08/21 11/08/24 documented as of this encounter
--- OUTSIDE RECORDS SUMMARY | 2024-11-17 08:20 | XMS_ITS | Encounter Summary ---
Author Organization [facility] Address [address] [place] [address] Phone Care Team Providers Care Principal Android Developer Name Role Phone Provider, Norma ANSARI Primary Care Provider [phone] Encounter Details Date Type Department Care Team (Late st Contact Info) Description 12/16/2017 Conversion Encounter [facility] [address] [address] Social History Tobacco Use Types Packs/Day Years [...] on filedocumented in this encounter Care Teams Principal Android Developer Relationship Specialty Start Date End Date Provider, MD Norma [address] [place] [phone] PCP - General Pediatrics 03/16/23 12/07/23 Tutu Art APRN HEAD PIECE ASSEMBLER BS MSN Consulting Physician Nephrology 07/08/21 11/08/24 documented as of this encounter
[2024-11-17 11:19] LABS: MANUAL DIFF FLAG NO
[2024-11-17 11:21] LABS: Basophils Percent Auto 0.5 % (0-2); Eosinophils Absolute Auto 0.4 X10*3/uL (0.0-0.4); Eosinophils Percent Auto 5.9 % (0-4); Hemoglobin 12.2 g/dl (12.0-16.0); Imm Gran Abs Auto 0.01 X10*3/uL (0.00-0.03); Imm Gran Pct Auto 0.2 % (0.0-0.4); Lymphocytes Absolute Auto 2.4 X10*3/uL (1.2-4.9); Lymphocytes Percent Auto 36.6 % (20-40); Mean Corpuscular Hemoglobin 28.9 pg (27.0-33.0); Mean Corpuscular Volume 87.7 fL (80.0-98.0); Mean Platelet Volume 9.1 fL (9.4-12.3); Monocytes Absolute Auto 0.5 X10*3/uL (0.1-1.2); Monocytes Percent Auto 7.7 % (2-11); Neutrophils Absolute Auto 3.2 x10*3/uL (2.0-8.3); Neutrophils Percent Auto 49.1 % (45-73); Platelet Count 413 X10*3/uL (160-400); Red Blood Count 4.22 X10*6/uL (4.20-5.50); Red Cell Distribution Width 13.2 % (11.0-16.0); White Blood Count 6.5 X10*3/uL (4.8-10.8)
== END 2024-11-17 08:18 | disposition home or self-care (01) ==
LOC: HO.HMGCLDS 08:17
PROVIDERS: PCP Nurse Practitioner Family; Visit Provider Nurse Practitioner Family
DX: D75.839 Thrombocytosis, unspecified (principal)
CPT/HCPCS: 36415; 85025

== ENCOUNTER → 2024-11-22 07:52 | Outpatient (REF) | payer BC, SELFPAY ==
--- NOTE | 2024-11-22 07:55 | CA_ITS ---
Transthoracic Echocardiogram Patient (Last, First, Middle): Arlen Huizar M Gender: Female Date of : 2000 Age: 23 Procedure Date: 11/22/2024 Procedure Type: Transthoracic Echocardiogram Location: OP Height: 157.48 cm Weight: 73.03 kg BSA: 1.74 m2 Heart Rate: 60 bpm BP: 120 / 74 mmHg Sandfill Operator: SB Referring MD: Juan [facility] It Support Specialist: Patel Diaz MD Symptoms: R01.1 - Cardiac murmur, unspecified Study Quality: Adequate ECG Rhythm: Sinus Conclusions: - Essentially normal study Findings Left Ventricle Normal left ventricular size, thickness, and systolic function. The visually estimated ejection fraction is between 60-65%. Diastolic function is normal for age. Right Ventricle Normal right ventricular cavity size and systolic function. Atria Both atria are normal in size. Interatrial shunt cannot be excluded. Aortic Valve Normal aortic valve structure and function. There is no aortic valve stenosis. There is no aortic valve regurgitation. Mitral Valve Normal mitral valve structure and function. There is trace mitral valve regurgitation. There is no mitral valve stenosis. Pulmonic Valve The pulmonic valve is likely normal. There is trace pulmonic valve regurgitation. Tricuspid Valve Normal tricuspid valve structure. There is trace tricuspid valve regurgitation. The right ventricular systolic pressure is normal. The right ventricular systolic pressure is 20 mmHg. Normal right atrial pressure. There is no evidence of pulmonary hypertension. Great Vessels All visible segments of the aorta are normal in size. There is no dilatation of the ascending aorta measuring 2.30 cm. The visualized portions of the pulmonary artery and branches are normal. Venous The inferior vena cava is normal in size and collapses greater than 50% with inspiration. Pericardium/Pleural There is no evidence of pericardial effusion. Prior Study Comparison No prior study available for comparison. Measurements 2D Linear Measurements IVSd: 1.10 0.6-0.9/0.6-1.0 cm LVIDd: 4.47 3.9-5.3/4.2-5.9 cm LVIDd Index: 2.57 2.4-3.2/2.2-3.1 cm/m2 LVIDs: 2.69 2.0-3.6 cm LVPWd: 0.93 0.7-1.1 cm LA Diam: 3.70 2.7-3.8/3.0-4.0 cm LAIDs Index: 2.13 1.5-2.3 cm/m2 LV Mass: 193.25 67-162/88-224 g LV Mass Index: 111.06 43-95/49-115 g/m2 LVOT Diam: 2.00 3.0+(-)1.3 cm 2D Systolic Function EF 4C: 60.00 >55% EF 2C: 65.60 >55% EF BiP: 62.20 >55% Mitral Valve MV Pk E: 0.93 MV PK A: 0.30 MV Decel Time: 229.00 E/A: 3.10 E'Lateral: 16.40 E'Medial: 10.00 E/E' Med: 9.30 E/E' Lat: 5.70 PHT: 67.00 MVA PHT: 3.28 Decel Hyde: 4.08 Aortic Valve AoV Pk Laurent: 1.29 AoV Pk Grad: 7.00 ROBSON: 2.97 LVOT LVOT Pk Laurent: 1.21 LVOT Mn Laurent: 0.85 LVOT VTI: 0.26 LVOT Pk Grad: 6.00 LVOT Mn Grad: 3.00 LVOT Diam: 2.00 LVOT Area: 3.14 Diastolic Function MV Pk E: 0.93 MV Pk A: 0.30 E/A: 3.10 E'Medial: 10.00 E/E' Med: 9.30 E' Laterial: 16.40 E/E' Lat: 5.70 Right Ventricle TAPSE (mm): 16.90 TVS' Laurent: 11.00 Tricuspid Valve TR Pk Laurent: 2.04 TR Pk Grad: 17.00 RA Press: 3.00 RVSP: 20.00 Great Vessels Aorta Sinus of Valsalva: 2.30 2.0-3.5 cm Ao Asc: 2.30 2.1-3.4 cm Ao Desc: 1.30 Pulmonary Veins Pulm Vein S/D 0.60 Pulmonary Valve PV Pk Laurent: 1.10 Peak PV Grad: 5.00 Updated in Other Vendor System with Status of Final Patel Diaz MD electronically signed on 11/22/2024 3:23:49 PM with status of Final
--- OUTSIDE RECORDS SUMMARY | 2024-11-22 07:56 | XMS_ITS | Encounter Summary ---
Author Organization [facility] Address [address] [place] [address] Phone Care Team Providers Care Geospatial Specialist Name Role Phone Provider, [facility] Primary Care Provider [phone] Reason for Visit * Reason Comments Med Refill Encounter Details Date Type Department Care Team (Late st Contact Info) Description 03/19/2020 Refill [facility] - [address] [address] Barbara Marx MD [address] [facility] [address] [place] [address] Sleep difficulties Social History Tobacco Use Types [...] difficulties documented in this encounter Care Teams Geospatial Specialist Relationship Specialty Start Date End Date Provider, MD Norma [address] [place] [phone] PCP - General Pediatrics 03/16/23 12/07/23 Tutu Art APRN RETAIL KEY HOLDER BS MSN Consulting Physician Nephrology 07/08/21 11/08/24 documented as of this encounter
--- OUTSIDE RECORDS SUMMARY | 2024-11-22 07:56 | XMS_ITS | Encounter Summary ---
Author Organization [facility] Address [address] [place] [address] Phone Care Team Providers Care Gold Layer Name Role Phone Provider, [facility] Primary Care Provider Reason for Visit * Reason Comments Med Refill Encounter Details Date Type Department Care Team (Late st Contact Info) Description 02/12/2020 Refill [facility] - [address] [address] Barbara Marx MD [address] [facility] [address] [place] [address] Seasonal allergic rhinitis due to pollen; Moderate [...] complication documented in this encounter Care Teams Gold Layer Relationship Specialty Start Date End Date Provider, MD Norma [address] [place] [phone] PCP - General Pediatrics 03/16/23 12/07/23 Tutu Art APRN FIELD COIL WINDER BS MSN Consulting Physician Nephrology 07/08/21 11/08/24 documented as of this encounter
--- OUTSIDE RECORDS SUMMARY | 2024-11-22 07:56 | XMS_ITS | Encounter Summary ---
Author Organization [facility] Address [address] [place] [address] Phone Care Team Providers Care Splicing Machine Operator Name Role Phone Provider, [facility] Primary Care Provider [phone] Reason for Visit * Reason Onset Date Comments Med Refill Med Refill 02/20/2020 Encounter Details Date Type Department Care Team (Late st Contact Info) Description 02/20/2020 Refill [facility] [place] [address] [place] [address] Bee Rivas MD [address] [place] [address] Moderate persistent asthma without complication Social History [...] complication documented in this encounter Care Teams Splicing Machine Operator Relationship Specialty Start Date End Date Provider, MD Norma [address] [place] [phone] PCP - General Pediatrics 03/16/23 12/07/23 Tutu Art APRN PHILOSOPHY INSTRUCTOR BS MSN Consulting Physician Nephrology 07/08/21 11/08/24 documented as of this encounter
--- OUTSIDE RECORDS SUMMARY | 2024-11-22 07:56 | XMS_ITS | Encounter Summary ---
Author Organization [facility] Address [address] [place] [address] Phone Care Team Providers Care Ironworker Helper Shop Name Role Phone Provider, Norma ANSARI Primary Care Provider [phone] Reason for Visit * Reason Onset Date Comments Med Refill Med Refill 02/20/2020 Encounter Details Date Type Department Care Team (Late st Contact Info) Description 02/19/2020 Refill [facility] - [address] [address] Barbara Marx MD [address] [facility] [address] [place] [address] Seasonal allergic rhinitis due to pollen; Moderate [...] complication documented in this encounter Care Teams Ironworker Helper Shop Relationship Specialty Start Date End Date Provider, MD Norma [address] [place] [phone] PCP - General Pediatrics 03/16/23 12/07/23 Tutu Art APRN OUTSIDE PLANT FIELD ENGINEER BS MSN Consulting Physician Nephrology 07/08/21 11/08/24 documented as of this encounter
--- OUTSIDE RECORDS SUMMARY | 2024-11-22 07:56 | XMS_ITS | Encounter Summary ---
Author Organization [facility] Address [address] [place] [address] Phone Care Team Providers Care Medical Receptionist Medical Assistant Name Role Phone Provider, Norma ANSARI Primary Care Provider [phone] Reason for Visit * Reason Comments Med Refill Encounter Details Date Type Department Care Team (Late st Contact Info) Description 02/20/2019 Refill [facility] - [address] [address] Barbara Marx MD Mood disorder of depressed [...] type documented in this encounter Care Teams Medical Receptionist Medical Assistant Relationship Specialty Start Date End Date Provider, MD Norma [address] [place] [phone] PCP - General Pediatrics 03/16/23 12/07/23 Tutu Art APRN SCIENTIFIC DIRECTOR BS MSN Consulting Physician Nephrology 07/08/21 11/08/24 documented as of this encounter
--- OUTSIDE RECORDS SUMMARY | 2024-11-22 07:56 | XMS_ITS | Data Portability ---
Author Organization MICKI Larose martha [address] Address [address] [place] [address] Care Team Providers Care Domestic Helper Name Role Phone LANI REYNA Transcripter Unavailable Assessment No assessment recorded. Plan of Treatment Reminders Order Date Submit Date Provider Last Modified By Organization Details Last Modified Time Details Appointments None recorded. Lab None recorded. Referral None recorded. Procedures None recorded. Surgeries None recorded. Imaging None recorded. Medication Orders baclofen 10 mg tablet 2023 024 [employer] [facility][id number], [address] [place], [place], [id number], 16:12:53 Patient TargetsNo targets recorded. Patient Instructions Encounter Date Encounter Id Patient Instructions Last Modified By Organization Details Last Modified Time 01/12/2024 [id number] neck pain: care instructions nmakris Not available [...] Details Recorded Time Disorder of thyroid gland 53402817 Active 022 CHANDLER LOZANO null, [place] - [facility] 2 09:05:27 Bipolar disorder 74301579 Active 022 CHANDLER LOZANO null, [place] - [facility] 2 09:06:06 Asthma 433244802 Active 024 [employer]ist Progress null, [place] - [facility] 4 12:13:09 Strain of neck muscle 778491953 Active 024 CHARLY HORTA NP [address] [place], [address] , [place] - [facility] 4 12:39:02 Minor head injury 883073749 Active 024 CHARLY HORTA NP [address] [place], [address] , [place] - [facility] 4 12:39:18 Problem Notes None recorded. Medical Equipment None Reported. Allergies Allergen ID Allergen Name Allergen Category Reaction Reaction Severity Criticality Documentation Date Start Date Code Code System Note Provider Name and Address Organization Details Recorded Time 35059 adhesive tape environme nt,medica tion rash Not available low 07/28/2022 66871 UNK CHANDLER LOZANO null, [place] - [facility] [...] Address Organization Details Last Updated DateTime 2 40249.5 8 g 98 % 38.8 kg/m2 157.48 cm 16 /min 97.7 [degF] 99 % 99 % 75 /min 119 mm[Hg] 74 mm[Hg] CHANDLER LOZANO [facility] 2 09:10:36 Date Recorded Body height Body mass index (BMI) Body weight Oxygen saturation Oxygen saturation in Arterial blood by Pulse oximetry Heart rate Respiratory rate Body temperature Pain severity - 0-10 verbal numeric rating [Score] - Reported Systolic blood pressure Diastolic blood pressure Provider Name and Address Organization Details Last Updated DateTime 4 157.48 cm 36.8 kg/m2 97098.0 7 g 100 % 100 % 67 [...] Updated DateTime 4 157.48 cm 36.8 kg/m2 51127.0 7 g 2 18 /min 97.7 [degF] [...] SNOMED-CT Code Diagnosis ICD10 Code Diagnosis Note [id number] [address] [address] 04/05/2020 10:38:35 04/05/2020 13:12:19 [id number] [place] [address] [address] 07/28/2022 08:10:27 07/28/2022 10:02:09 History and physical examination, pre-employment [id number] Z02.1 [id number] [place] [address] [place] [address] 01/12/2024 11:55:36 01/12/2024 12:56:54 Strain of neck muscle 704556331 S16.1XXA You are being diagnosed with a [...] Dizziness. light headedness Thank you for using [employer] . Please feel free to contact us if you have any questions or concerns. Minor head injury 733694 006 S09.90XA [id number] MICKI Brower [address] [place] [address] 01/16/2024 08:06:00 01/16/2024 08:26:46 Muscle spasm of cervical muscle of neck 8953100721 04 M62.838 You were seen to follow [...] Siddiqi Member ID Guarantor Name 04/05/2020 1 [facility] [employer] - TOGETHER (MEDICAID HMO) [id number] Arlen Ferndale [id number] 1 Arlen Ferndale 07/28/2022 FEE FOR SERVICE Arlen Ferndale 01/12/2024 [employer] Arlen Ferndale 01/16/2024 [employer] Arlen Ferndale Notes Date Note Type Note Provider Name and Address Organization Details Recorded Time 07/28/2022 text/html pre-employment ROSALINAD MURDOCK MD [address] [place], [address], [place] - [facility] 07/28/2022 09:44:49 01/16/2024 text/html 23 y/o female returns to follow on injury sustained at work 4 days ago. She was hit by a thrown chair and was having neck and head pain. She states her pain is minimal now, and she is ready to go back to work.She was able to rest the last 3 days MICKI Brower [address] [place], [address], [place] [employer] [facility] 01/16/2024 08:25:46 OBGyn Episode No OBEpisode recorded.
--- OUTSIDE RECORDS SUMMARY | 2024-11-22 07:56 | XMS_ITS | Encounter Summary ---
Author Organization [facility] Address [address] [place] [address] Phone Care Team Providers Care Pasta Press Operator Name Role Phone Provider, [facility] Primary Care Provider [phone] Reason for Visit * Reason Comments Med Refill Encounter Details Date Type Department Care Team (Late st Contact Info) Description 11/03/2019 Refill [facility] - [address] [address] Barbara Marx MD 193 [facility] [address] [place] [address] Sleep difficulties Social History Tobacco Use Types [...] difficulties documented in this encounter Care Teams Pasta Press Operator Relationship Specialty Start Date End Date Provider, MD Norma [address] [place] [address] PCP - General Pediatrics 03/16/23 12/07/23 Tutu Art APRN CATERING ASSISTANT BS MSN Consulting Physician Nephrology 07/08/21 11/08/24 documented as of this encounter
--- OUTSIDE RECORDS SUMMARY | 2024-11-22 07:56 | XMS_ITS | Encounter Summary ---
Author Organization [facility] Address [address] [place] [address] Phone Care Team Providers Care Warhead Maintenance Specialist Name Role Phone Provider, [facility] Primary Care Provider [phone] Reason for Visit * Reason Comments Med Refill Encounter Details Date Type Department Care Team (Late st Contact Info) Description 07/31/2018 Refill [facility] - [address] [address] Barbara Marx MD Moderate persistent asthma without [...] complication documented in this encounter Care Teams Warhead Maintenance Specialist Relationship Specialty Start Date End Date Provider, MD Norma [address] [place] [address] PCP - General Pediatrics 03/16/23 12/07/23 Tutu Art APRN IVORY CARVER BS MSN Consulting Physician Nephrology 07/08/21 11/08/24 documented as of this encounter
--- OUTSIDE RECORDS SUMMARY | 2024-11-22 07:56 | XMS_ITS | Encounter Summary ---
Author Organization [facility] Address [address] [place] [address] Phone Care Team Providers Care Refractory Products Supervisor Name Role Phone Provider, [facility] Primary Care Provider [phone] Reason for Visit * Reason Comments Med Refill Encounter Details Date Type Department Care Team ([facility] st Contact Info) Description 12/01/2019 Refill [facility] - [address] [place] [address] Barbara Marx MD 193 [facility] [address] [place] [address] Mood disorder of depressed type; Moderate persistent [...] complication documented in this encounter Care Teams Refractory Products Supervisor Relationship Specialty Start Date End Date Provider, MD Norma [address] [place] [address] PCP - General Pediatrics 03/16/23 12/07/23 Tutu Art APRN POST ANESTHESIA ROOM NURSE BS MSN Consulting Physician Nephrology 07/08/21 11/08/24 documented as of this encounter
--- OUTSIDE RECORDS SUMMARY | 2024-11-22 07:56 | XMS_ITS | Encounter Summary ---
Author Organization [facility] Address [address] [place] [address] Phone Care Team Providers Care Horse Farm Manager Name Role Phone Provider, Norma ANSARI Primary Care Provider [phone] Reason for Visit * Reason Comments Med Refill Encounter Details Date Type Department Care Team (Late st Contact Info) Description 02/19/2019 Refill [facility] - [address] [address] Barbara Marx MD Primary dysmenorrhea Social History [...] Dysmenorrhea documented in this encounter Care Teams Horse Farm Manager Relationship Specialty Start Date End Date Provider, MD Norma [address] [place] [phone] PCP - General Pediatrics 03/16/23 12/07/23 Tutu Art APRN REPORT PROGRAMMER BS MSN Consulting Physician Nephrology 07/08/21 11/08/24 documented as of this encounter
--- OUTSIDE RECORDS SUMMARY | 2024-11-22 07:56 | XMS_ITS | Encounter Summary ---
Author Organization [facility] Address [address] [place] [address] Phone Care Team Providers Care Chain Mortiser Operator Name Role Phone Provider, [facility] Primary Care Provider [phone] Reason for Visit * Reason Comments Med Refill Encounter Details Date Type Department Care Team ([facility] st Contact Info) Description 04/01/2020 Refill [facility] - [address] [place] [address] Barbara Marx MD 193 [facility] [address] [place] [address] Depression with anxiety; Hypercholesterolemia; Chronic migraine without [...] intractable documented in this encounter Care Teams Chain Mortiser Operator Relationship Specialty Start Date End Date Provider, MD Norma [address] [place] [phone] PCP - General Pediatrics 03/16/23 12/07/23 Tutu Art APRN BRIM RAISER BS MSN Consulting Physician Nephrology 07/08/21 11/08/24 documented as of this encounter
--- OUTSIDE RECORDS SUMMARY | 2024-11-22 07:56 | XMS_ITS | Encounter Summary ---
Author Organization [facility] Address [address] [place] [address] Phone Care Team Providers Care Police Officer Name Role Phone Provider, Norma ANSARI Primary Care Provider [phone] Reason for Visit * Reason Comments Med Refill Encounter Details Date Type Department Care Team (Late st Contact Info) Description 08/23/2018 Refill [facility] - [address] [address] Barbara Marx MD Moderate persistent asthma without [...] complication documented in this encounter Care Teams Police Officer Relationship Specialty Start Date End Date Provider, MD Norma [address] [place] [address] PCP - General Pediatrics 03/16/23 12/07/23 Tutu Art APRN TRANSPORTATION ESCORT BS MSN Consulting Physician Nephrology 07/08/21 11/08/24 documented as of this encounter
--- OUTSIDE RECORDS SUMMARY | 2024-11-22 07:56 | XMS_ITS | Clinical Summary ---
Author Organization [facility] Address [address] [place] [address] Phone Care Team Providers Care Horn Player Name Role Phone Unavailable Primary Care Provider [...] with planned follow-ups 02/2021 with Neuro/Optho 11/2021: [facility] Adult Neuro- Mild papilledema again on exam-restarted [...] blood sugar 106 and ALT 44 05/2020: [facility] Pedi Endo consult with Dr Jina Singh. [...] reschedule overdue f/up with Dr. Lino at [facility] Assessment & Plan (07/09/2019 4:46 PM EST): Needs to reschedule f/up with Dr Lino, will plan repeat fasting labs Assessment & Plan (06/10/2018 5:41 PM EDT): Repeat fasting lipid panel, if consistently abnormal, refer to Cardiology Seasonal allergic rhinitis due to pollen 018 Overview (07/05/2021): Springtime predominant, but 10/2020 skin testing at [facility] + to birch, grass, ragweed, dust mites, [...] flow excellent in office at 450. ( Uk=459 cm) resume ICS with Flovent 110 2 [...] 10 mg with good effect, mild upset, Sheldon 3s added 03/2019: Changed to Escitalopram for [...] ? Psychiatrist 11/22/19- F/up call placed to [facility] as rica family no contact has been made. 03/2020: GAD7=14 with panic and PHQ9 16 with return of passive SI, ( pt lost her outpt [facility] therapist) Esc increased to 20, Hydroxyzene 5-10 mg PRN, refer to IB 11/06/2020: [facility] intake! Assessment & Plan (05/29/2021 7:17 PM EDT): No refill needed on Escitalopram but trial as QHS administration for the next 4 days until first intake appointment with [facility] psychiatry. Arlen to request therapist at [facility], but may receive bridging CBT services as desired with our [facility] team for the next 3 months while waiting. Assessment & Plan (10/09/2020 1:35 PM EST): Continue Escitalopram 20 but recommend pt re-establish her previously very effective, manager intermediate therapy services through [facility] or [facility] provider. Detailed list provided to pt [...] at this time. Plan refer to new [facility] acute care program for med management assistance. Assessment & Plan (05/05/2020 1:16 PM EDT): Continue Esc at current 20 mg QD, trial Hydroxyzene at 15 mg, then 20mg dose as needed for her PRN anxiety episodes. May also try taking 50 mg=1/2 tab of her current Trazodone as a PRN instead. Pt shown the [facility] website so she can try to find a therapist who will be a good fit for nursing home support. Doing well enough that no longer makes sense to involve our short term [facility] team. Refer to [facility] Telepsychiatry program with understanding that first [...] do to resume her therapy services through [facility], but for more urgent stabilization will temporize [...] therapy support d/t staff turnover at [facility]. Suggest pt reach out to her previous in-home therapist to see if services could be re-instated given the change in her mood sx and discontinuity of outpatient therapy support.Will discuss with integrated Behavioral health providers, ? Possible temporary support during transition. Assessment & Plan (11/19/2019 3:07 PM EDT): Continue Escitalopram 15 mg QD. Arlen prefers that another call be placed to [facility] to re-request transfer to child psychiatry [...] symptoms but BMI acceleration 2019- refer to [facility] Sleep Med for formal consult Assessment & [...] noted by family or pt. Refer to [facility] Sleep Med for formal consult Assessment & [...] reach out directly to her Math and Uzbek teachers as well as her Guidance Counselor. [...] Dysmenorrhea, mood dysregulation and acne concerns at [facility] 12/2017. No FH DVT or BCA, normal [...] AM EST): Nuvaring poorly tolerated/ineffective- refer to CLINICAL PROJECT LEADER but begin trial Apri in the meantime. [...] Type Department Care Team Description 11/09/2024 Telephone [facility] - [address] [address] Bee Rivas MD Medical Records [...] Completed 03/02/2019, 015 Procedures * Due to [place] Fl[place] law, this organization might not be sharing sensitive test results. Procedure Name Priority Date/Time Associated Diagnosis Comments CHLAMYDIA AND GONORRHEA, AMPLIFIED Routine 07/09/2019 4:18 PM EST Screen for STD (sexually transmitted disease) from Last 3 Months or Most Recently Relevant to Health Maintenance Results * Due to [place] law, this organization might not be sharing sensitive test results. * Chlamydia and Gonorrhoea, Amplified (07/09/2019 4:18 PM EST) Chlamydia Trachomatis, DNA Probe NEGATIVE (NEG) [facility] Comment: No Chlamydia Trachomatis RNA detected in this patient's sample ? (REFERENCE RANGE/NORMAL VALUE: NOT DETECTED) ? Note: This test uses dietary supervisor- mediated amplification method to detect rRNA from C. Trachomatis URINE GC AMP PROBE NEGATIVE (NEG) [facility] Comment: No Neisseria Gonorrhoeae RNA detected in this patient's sample ? (REFERENCE RANGE/NORMAL VALUE: NOT DETECTED) ? NOTE: This test uses dietary supervisor-mediated amplification method to detect rRNA from N.Gonorrhoeae. [...] without risk of sexual abuse. Consult the [facility] if needed. Contact phone number . Therapeutic failure or success cannot be determined with the Aptima Combo2 assay since nucleic acid may persist following appropriate antimicrobial therapy. The Centers for Disease Control and Prevention (CDC) recommends confirmatory retesting using culture or a different nucleic acid amplification test when positive results occur, if indicated. Testing performed or reported by [facility], a Service of [facility], [facility] [place] [address] Urine 07/09/2019 4:18 PM EST 07/09/2019 8:16 PM EST Barbara Marx MD LAB MICROBIOLOGY - GENERAL SANDRA RAMIREZ Final Result [facility] from Last 3 Months or Most Recently Relevant to Health Maintenance
--- OUTSIDE RECORDS SUMMARY | 2024-11-22 07:56 | XMS_ITS | Encounter Summary ---
Author Organization [facility] Address [address] [place] [address] Phone Care Team Providers Care Hedge Fund Principal Name Role Phone Provider, [facility] Primary Care Provider [phone] Reason for Visit * Reason Comments Med Refill Encounter Details Date Type Department Care Team (Late st Contact Info) Description 12/22/2019 Refill [facility] - [address] [address] Barbara Marx MD 193 [facility] [address] [place] [address] Depression with anxiety Social History Tobacco Use [...] disorder documented in this encounter Care Teams Hedge Fund Principal Relationship Specialty Start Date End Date Provider, MD Norma [address] [place] [phone] PCP - General Pediatrics 03/16/23 12/07/23 Tutu Art APRN JUNIOR ACCOUNTING CLERK BS MSN Consulting Physician Nephrology 07/08/21 11/08/24 documented as of this encounter
--- OUTSIDE RECORDS SUMMARY | 2024-11-22 07:56 | XMS_ITS | Encounter Summary ---
Author Organization [facility] Address [address] [place] [address] Phone Care Team Providers Care Tool Designer Name Role Phone Provider, Norma ANSARI Primary Care Provider [phone] Reason for Visit * Reason Comments Med Refill Encounter Details Date Type Department Care Team (Late st Contact Info) Description 08/15/2018 Refill [facility] - [address] [address] Barbara Marx MD Moderate persistent asthma without [...] complication documented in this encounter Care Teams Tool Designer Relationship Specialty Start Date End Date Provider, MD Norma [address] [place] [phone] PCP - General Pediatrics 03/16/23 12/07/23 Tutu Art APRN PC NETWORK TECHNICIAN BS MSN Consulting Physician Nephrology 07/08/21 11/08/24 documented as of this encounter
--- OUTSIDE RECORDS SUMMARY | 2024-11-22 07:57 | XMS_ITS | Encounter Summary ---
Author Organization [facility] Address [address] [place] [address] Phone Care Team Providers Care Home Care Manager Name Role Phone Provider, Norma ANSARI Primary Care Provider [phone] Encounter Details Date Type Department Care Team (Late st Contact Info) Description 03/09/2010 Documentation [facility] Medicine [address] [place] [address] Family Medicine, Physician [address] [place] [address] Social History Tobacco Use Types Packs/Day Years [...] on filedocumented in this encounter Care Teams Home Care Manager Relationship Specialty Start Date End Date Provider, MD Norma [address] [place] [address] PCP - General Pediatrics 03/16/23 12/07/23 Tutu Art APRN HEALTHCARE ASSOCIATE BS MSN Consulting Physician Nephrology 07/08/21 11/08/24 documented as of this encounter
--- OUTSIDE RECORDS SUMMARY | 2024-11-22 07:57 | XMS_ITS | Encounter Summary ---
Author Organization [facility] Address [address] [place] [address] Phone Care Team Providers Care Supervisor Sandblaster Name Role Phone Provider, [facility] Primary Care Provider [phone] Reason for Visit * Reason Comments Med Refill Encounter Details Date Type Department Care Team ([facility] st Contact Info) Description 10/31/2020 Refill [facility] - [address] [address] Barbara Marx MD 193 [facility] [address] [place] [address] Chronic migraine without aura without status migrainosus, [...] intractable documented in this encounter Care Teams Supervisor Sandblaster Relationship Specialty Start Date End Date Provider, MD Norma [address] [place] [phone] PCP - General Pediatrics 03/16/23 12/07/23 Tutu Art APRN SPD MANAGER BS MSN Consulting Physician Nephrology 07/08/21 11/08/24 documented as of this encounter
--- OUTSIDE RECORDS SUMMARY | 2024-11-22 07:57 | XMS_ITS | Encounter Summary ---
Author Organization [facility] Address [address] [place] [address] Phone Care Team Providers Care Welding Machine Operator Electroslag Name Role Phone Provider, [facility] Primary Care Provider [phone] Reason for Visit * Reason Comments Med Refill Encounter Details Date Type Department Care Team ([facility] st Contact Info) Description 01/27/2021 Refill [facility] - [address] [address] Barbara Marx MD 193 [facility] [place] [address] Sleep difficulties Social History Tobacco Use Types [...] difficulties documented in this encounter Care Teams Welding Machine Operator Electroslag Relationship Specialty Start Date End Date Provider, MD Norma [address] [place] [address] PCP - General Pediatrics 03/16/23 12/07/23 Tutu Art APRN CURB BUILDER BS MSN Consulting Physician Nephrology 07/08/21 11/08/24 documented as of this encounter
--- OUTSIDE RECORDS SUMMARY | 2024-11-22 07:57 | XMS_ITS | Encounter Summary ---
Author Organization [facility] Address [address] [place] [address] Phone Care Team Providers Care Supervisor Photostat Name Role Phone Provider, Norma ANSARI Primary Care Provider [phone] Encounter Details Date Type Department Care Team (Late st Contact Info) Description 03/24/2017 Conversion Encounter [facility] [address] [place] [address] Social History Tobacco Use Types Packs/Day Years [...] on filedocumented in this encounter Care Teams Supervisor Photostat Relationship Specialty Start Date End Date Provider, MD Norma [address] [place] [address] PCP - General Pediatrics 03/16/23 12/07/23 Tutu Art APRN MOTOR EXPRESS CLERK BS MSN Consulting Physician Nephrology 07/08/21 11/08/24 documented as of this encounter
--- OUTSIDE RECORDS SUMMARY | 2024-11-22 07:57 | XMS_ITS | Encounter Summary ---
Author Organization [facility] Address [address] [place] [address] Phone Care Team Providers Care Vice President Of Brand Management Name Role Phone Provider, [facility] Primary Care Provider [phone] Reason for Visit * Reason Comments Med Refill Encounter Details Date Type Department Care Team ([facility] st Contact Info) Description 05/12/2020 Refill [facility] - [address] [address] Barbara Marx MD 193 [facility] [address] [place] [address] Sleep difficulties Social History Tobacco Use Types [...] difficulties documented in this encounter Care Teams Vice President Of Brand Management Relationship Specialty Start Date End Date Provider, MD Norma [address] [place] [address] PCP - General Pediatrics 03/16/23 12/07/23 Tutu Art APRN AWARD CLERK BS MSN Consulting Physician Nephrology 07/08/21 11/08/24 documented as of this encounter
--- OUTSIDE RECORDS SUMMARY | 2024-11-22 07:57 | XMS_ITS | Encounter Summary ---
Author Organization [facility] Address [address] [place] [address] Phone Care Team Providers Care Dust Mill Operator Name Role Phone Provider, Norma ANSARI Primary Care Provider [phone] Reason for Visit * Reason Comments Med Refill Encounter Details Date Type Department Care Team ([facility] st Contact Info) Description 05/27/2021 Refill [facility] - [address] [address] Barbara Marx MD 193 [facility] [place] [address] Depression with anxiety Social History Tobacco Use [...] disorder documented in this encounter Care Teams Dust Mill Operator Relationship Specialty Start Date End Date Provider, MD Norma [address] [place] [address] PCP - General Pediatrics 03/16/23 12/07/23 Tutu Art APRN BENCH MACHINE OPERATOR BS MSN Consulting Physician Nephrology 07/08/21 11/08/24 documented as of this encounter
--- OUTSIDE RECORDS SUMMARY | 2024-11-22 07:57 | XMS_ITS | Encounter Summary ---
Author Organization [facility] Address [address] [place] [address] Phone Care Team Providers Care Core Machine Tender Name Role Phone Provider, [facility] Primary Care Provider [phone] Reason for Visit * Reason Comments Med Refill Encounter Details Date Type Department Care Team (Late st Contact Info) Description 10/05/2017 [facility] [address] [place] [address] Mell Verde DO [address] [place] [address] Mild persistent asthma without complication (Primary Dx); [...] Dysmenorrhea documented in this encounter Care Teams Core Machine Tender Relationship Specialty Start Date End Date Provider, MD Norma [address] [place] [phone] PCP - General Pediatrics 03/16/23 12/07/23 Tutu Art APRN PORTFOLIO STRATEGIST BS MSN Consulting Physician Nephrology 07/08/21 11/08/24 documented as of this encounter
--- OUTSIDE RECORDS SUMMARY | 2024-11-22 07:57 | XMS_ITS | Encounter Summary ---
Author Organization [facility] Address [address] [place] [address] Phone Care Team Providers Care Gate Attendant Name Role Phone Provider, Norma ANSARI Primary Care Provider Encounter Details Date Type Department Care Team (Late st Contact Info) Description 09/07/2016 Documentation [facility] Family Medicine [address] [place], [place] [phone] Family Medicine, Physician [address] [place] [address] Social History Tobacco Use Types Packs/Day Years [...] on filedocumented in this encounter Care Teams Gate Attendant Relationship Specialty Start Date End Date Provider, MD Norma [address] [place] [address] PCP - General Pediatrics 03/16/23 12/07/23 Tutu Art APRN TOOL AND DIE ENGINEER BS MSN Consulting Physician Nephrology 07/08/21 11/08/24 documented as of this encounter
--- OUTSIDE RECORDS SUMMARY | 2024-11-22 07:57 | XMS_ITS | Encounter Summary ---
Author Organization [facility] Address [address] [place] [address] Phone Care Team Providers Care Golf Ball Cover Treater Name Role Phone Provider, Norma ANSARI Primary Care Provider [phone] Encounter Details Date Type Department Care Team (Late st Contact Info) Description 12/16/2017 Conversion Encounter [facility] [address] [address] Social History Tobacco Use Types Packs/Day Years [...] on filedocumented in this encounter Care Teams Golf Ball Cover Treater Relationship Specialty Start Date End Date Provider, MD Norma [address] [place] [phone] PCP - General Pediatrics 03/16/23 12/07/23 Tutu Art APRN ICU STAFF NURSE BS MSN Consulting Physician Nephrology 07/08/21 11/08/24 documented as of this encounter
--- OUTSIDE RECORDS SUMMARY | 2024-11-22 07:57 | XMS_ITS | Encounter Summary ---
Author Organization [facility] Address [address] [place] [address] Phone Care Team Providers Care Twisting Machine Operator Name Role Phone Provider, [facility] Primary Care Provider [phone] Reason for Visit * Reason Comments Med Refill Encounter Details Date Type Department Care Team (Late st Contact Info) Description 11/15/2018 Refill [facility] - [address] [address] Barbara Marx MD Acute intractable headache, unspecified [...] type documented in this encounter Care Teams Twisting Machine Operator Relationship Specialty Start Date End Date Provider, MD Norma [address] [place] [address] PCP - General Pediatrics 03/16/23 12/07/23 Tutu Art APRN SECTION WEAVER BS MSN Consulting Physician Nephrology 07/08/21 11/08/24 documented as of this encounter
--- OUTSIDE RECORDS SUMMARY | 2024-11-22 07:57 | XMS_ITS | Encounter Summary ---
Author Organization [facility] Address [address] [place] [address] Phone Care Team Providers Care Web Manager Name Role Phone Provider, Norma ANSARI Primary Care Provider [phone] Reason for Visit * Reason Comments Med Refill Encounter Details Date Type Department Care Team ([facility] st Contact Info) Description 08/15/2020 Refill [facility] [address] [address] Barbara Marx MD 193 [facility] [place] [address] Seasonal allergic rhinitis due to pollen; Moderate [...] complication documented in this encounter Care Teams Web Manager Relationship Specialty Start Date End Date Provider, MD Norma [address] [place] [address] PCP - General Pediatrics 03/16/23 12/07/23 Tutu Art DIAMOND GRADER ALL ROUND LOGGER BS MSN Consulting Physician Nephrology 07/08/21 11/08/24 documented as of this encounter
--- OUTSIDE RECORDS SUMMARY | 2024-11-22 07:57 | XMS_ITS | Encounter Summary ---
Author Organization [facility] Address [address] [place] [address] Phone Care Team Providers Care Steel Shot Header Operator Name Role Phone Provider, Norma ANSARI Primary Care Provider [phone] Encounter Details Date Type Department Care Team (Late st Contact Info) Description 05/08/2012 Documentation [facility] [place] [facility] Family Medicine [address] [place] [address] Family Medicine, Physician [address] [place] [address] Social History Tobacco Use Types Packs/Day Years [...] on filedocumented in this encounter Care Teams Steel Shot Header Operator Relationship Specialty Start Date End Date Provider, MD Norma [address] [place] [address] PCP - General Pediatrics 03/16/23 12/07/23 Tutu Art APRN ADULT SERVICES LIBRARIAN BS MSN Consulting Physician Nephrology 07/08/21 11/08/24 documented as of this encounter
--- OUTSIDE RECORDS SUMMARY | 2024-11-22 07:57 | XMS_ITS | Encounter Summary ---
Author Organization [facility] Address [address] [place] [address] Phone Care Team Providers Care Slot Machine Mechanic Name Role Phone Provider, [facility] Primary Care Provider [phone] Reason for Visit * Reason Comments Med Refill Encounter Details Date Type Department Care Team ([facility] st Contact Info) Description 04/27/2021 Refill [facility] [address] [address] Barbara Marx MD 193 [facility] 2 [place] [address] Depression with anxiety Social History Tobacco Use [...] disorder documented in this encounter Care Teams Slot Machine Mechanic Relationship Specialty Start Date End Date Provider, MD Norma [address] [place] [phone] PCP - General Pediatrics 03/16/23 12/07/23 Tutu Art APRN BALLAST CLEANING MACHINE OPERATOR BS MSN Consulting Physician Nephrology 07/08/21 11/08/24 documented as of this encounter
--- OUTSIDE RECORDS SUMMARY | 2024-11-22 07:57 | XMS_ITS | Encounter Summary ---
Author Organization [facility] Address [address] [place] [address] Phone Care Team Providers Care Broodmare Barn Groom Name Role Phone Provider, Norma ANSARI Primary Care Provider Encounter Details Date Type Department Care Team (Late st Contact Info) Description 03/09/2010 Documentation [facility] [place] Family Medicine [address] [place] [address] Family Medicine, Physician [address] [place] [address] Social History Tobacco Use Types Packs/Day Years [...] on filedocumented in this encounter Care Teams Broodmare Barn Groom Relationship Specialty Start Date End Date Provider, MD Norma [address] [place] [address] PCP - General Pediatrics 03/16/23 12/07/23 Tutu Art APRN PIPE WRAPPING MACHINE OPERATOR BS MSN Consulting Physician Nephrology 07/08/21 11/08/24 documented as of this encounter
--- OUTSIDE RECORDS SUMMARY | 2024-11-22 07:57 | XMS_ITS | Clinical Summary ---
Author Organization [facility] Address [address] [place] [address] Care Team Providers Care Layout Man Name Role Phone Barbara Marx MD Primary Care Provider [phone] Source Comments Please note that some or [...] so, obtain the minor's consent prior to disclosure.[facility] Allergies Active Allergy Reactions Criticality Noted [...] reschedule overdue f/up with [facility] Lino at [facility] Seasonal allergic rhinitis due to pollen [...] 10 mg with good effect, mild upset, [place] 3s added 03/2019: Changed to Escitalopram for [...] ? Psychiatrist 11/22/19- F/up call placed to [facility] no contact has been made. 03/2020: GAD7=14 with panic and PHQ9 16 with return of passive SI, ( pt lost her outpt [facility] therapist) Esc increased to 20, Hydroxyzene 5-10 mg PRN, refer to [facility] 11/06/2020: MARINE EQUIPMENT TEST ENGINEER intake! Last Assessment & Plan: Continue Escitalopram 20 but recommend pt re-establish her previously very effective, jail therapy services through [facility] or [facility] provider. Detailed list provided to pt [...] patient's age to complete this topic Insurance [facility] [employer] [facility] ([employer]) [facility] [employer] [facility] ([employer]) Care Teams Layout Man Relationship Specialty Start Date End Date Barbara Marx MD [address] [facility] [place] [address] PCP - General General Pediatrics 11/06/20
--- OUTSIDE RECORDS SUMMARY | 2024-11-22 07:57 | XMS_ITS | Encounter Summary ---
Author Organization [facility] Address [address] [place] [address] Phone Care Team Providers Care Shirring Tender Name Role Phone Provider, Norma ANSARI Primary Care Provider [phone] Encounter Details Date Type Department Care Team (Late st Contact Info) Description 03/09/2010 Documentation [facility] [place] Medicine [address] [place] [address] Family Medicine, Physician [address] [place] [address] Social History Tobacco Use Types Packs/Day Years [...] on filedocumented in this encounter Care Teams Shirring Tender Relationship Specialty Start Date End Date Provider, MD Norma [address] [place] [address] PCP - General Pediatrics 03/16/23 12/07/23 Tutu Art APRN SUPERVISOR CONTACT AND SERVICE CLERKS BS MSN Consulting Physician Nephrology 07/08/21 11/08/24 documented as of this encounter
== END ==
LOC: HO.CARD 07:52
PROVIDERS: PCP Nurse Practitioner Family; Visit Provider Nurse Practitioner Family
DX: R01.1 Cardiac murmur, unspecified (principal)
CPT/HCPCS: 93306

== ENCOUNTER → 2024-11-22 07:55 | Outpatient (BNV) | payer BC, SELFPAY | PROVIDERS: PCP Nurse Practitioner Family; Visit Provider Internal Medicine Cardiovascular Disease | DX: I34.0 Nonrheumatic mitral (valve) insufficiency (principal); I37.1 Nonrheumatic pulmonary valve insufficiency; I36.1 Nonrheumatic tricuspid (valve) insufficiency | CPT/HCPCS: 93306 ==

== ENCOUNTER 2025-01-17 08:16 | Outpatient (AMB) | payer BC, SELFPAY ==
--- OUTSIDE RECORDS SUMMARY | 2025-01-17 08:19 | XMS_ITS | Data Portability ---
Author Organization [facility]ose [facility]tha [address] Address [address] [place] [address] Care Team Providers Care Sql Data Analyst Name Role Phone LANI REYNA Lobby Attendant Unavailable Assessment No assessment recorded. Plan of Treatment Reminders Order Date Submit Date Provider Last Modified By Organization Details Last Modified Time Details Appointments None recorded. Lab None recorded. Referral None recorded. Procedures None recorded. Surgeries None recorded. Imaging None recorded. Medication Orders baclofen 10 mg tablet 2023 024 [facility][id number], [address] [place], [place], [id number], 16:12:53 Patient TargetsNo targets recorded. Patient Instructions Encounter Date Encounter Id Patient Instructions Last Modified By Organization Details Last Modified Time 01/12/2024 [id number] neck pain: care instructions nmakris Not available [...] Details Recorded Time Disorder of thyroid gland 09956213 Active 022 CHANDLER LOZANO null, [place] - [facility] 2 09:05:27 Bipolar disorder 89036830 Active 022 CHANDLER LOZANO null, [place] - [facility] 2 09:06:06 Asthma 643322353 Active 024 Tigist [place] null, [place] - [facility] 4 12:13:09 Strain of neck muscle 136983125 Active 024 CHARLY HORTA NP [address] [place], [address] , [place] - [facility] 4 12:39:02 Minor head injury 038560262 Active 024 CHARLY HORTA NP [address] [place], [address] , [place] - [facility] 4 12:39:18 Problem Notes None recorded. Medical Equipment None Reported. Allergies Allergen ID Allergen Name Allergen Category Reaction Reaction Severity Criticality Documentation Date Start Date Code Code System Note Provider Name and Address Organization Details Recorded Time 38453 adhesive tape environme nt,medica tion rash Not available low 07/28/2022 [id number] UNK CHANDLER LOZANO null, [facility] - [facility] [...] No t Available Vitals Date Recorded Body height Body mass index (BMI) Body weight Oxygen saturation Oxygen saturation in Arterial blood by Pulse oximetry Heart rate Respiratory rate Body temperature Systolic blood pressure Diastolic blood pressure Provider Name and Address Organization Details Last Updated DateTime 4 157.48 cm 36.8 kg/m2 58413.0 7 g 100 % 100 % 67 /min 16 /min 98 [degF] 123 mm[Hg] 82 mm[Hg] Tigist Rubio PA - [facility] 4 12:14:32 Date Recorded Body height Body mass index (BMI) Body weight Respiratory rate Body temperature Heart rate Oxygen saturation Oxygen saturation in Arterial blood by Pulse oximetry Systolic blood pressure Diastolic blood pressure Provider Name and Address Organization Details Last Updated DateTime 4 157.48 cm 36.8 kg/m2 85119.0 7 g 18 /min 97.7 [degF] 86 /min 99 % 99 % 141 mm[Hg] 91 mm[Hg] Sandra Lopez PA - [facility] 4 08:15:32 Date Recorded Body weight Body mass index (BMI) [Percentile] Per age and sex Body mass index (BMI) Body height Respiratory rate Body temperature Oxygen saturation Oxygen saturation in Arterial blood by Pulse oximetry Heart rate Systolic blood pressure Diastolic blood pressure Provider Name and Address Organization Details Last Updated DateTime 2 24416.5 8 g 98 % 38.8 kg/m2 157.48 cm 16 /min 97.7 [degF] 99 % 99 % 75 /min 119 mm[Hg] 74 mm[Hg] CHANDLER LOZANO PA - [facility] 09:10:36 Social History Question Answer Notes LastModified by Organizat ion Details LastModified Time Tobacco Smoking Status Never Smoker CHANDLER BLAKE null, [place] - [facility] 07/28/2022 09:06:41 Have You Had A Flu Shot This Season? Yes [email or web address] Information not available 01/12/2024 Sex: Unknown Functional Status Question Answer Note LastModified by Organization D etails LastModified Time What is your level of alcohol consumption? None Information not available 07/28/2022 Are you currently employed? Yes Information not available 07/28/2022 Mental Status None recorded. Family History Relationship [...] null, [place] - [facility] 07/28/2022 09:03:20 Past Encounters Encounter ID Performer Location Encounter Start Date Encounter Closed Date Diagnosis/Indication Diagnosis SNOMED-CT Code Diagnosis ICD10 Code Diagnosis Note [id number] [facility] [address] [place] [address] 04/05/2020 10:38:35 04/05/2020 13:12:19 [id number] [place] [address] [address] [place] [address] 07/28/2022 08:10:27 07/28/2022 10:02:09 History and physical examination, pre-employment 748191882 Z02.1 [id number] [place] [address] [place] [address] 01/12/2024 11:55:36 01/12/2024 12:56:54 Strain of neck muscle 729697005 S16.1XXA You are being diagnosed with a [...] Dizziness. light headedness Thank you for using [facility] . Please feel free to contact us if you have any questions or concerns. Minor head injury 468289 006 S09.90XA [id number] MICKI GRIER [address] [place] [address] 01/16/2024 08:06:00 01/16/2024 08:26:46 Muscle spasm of cervical muscle of neck 3826068766 04 M62.838 You were seen to follow [...] Recorded Advance Directives Directive None Recorded Payers Insurance Date Sequence Insurance Name Policy Number Policy Siddiqi Covered Member ID Siddiqi Member ID Guarantor Name 01/12/2024 PROMPT PAY Fa [facility] [place] 01/12/2024 1 [facility] (O) Arlen Zhaoant [id number] Arlen Huizar 01/16/2024 [employer] Arlen Huiazr 01/12/2024 1 [employer] (MEDICAID HMO) [id number] Arlen Huizar [id number] 1 Arlen Huizar 07/28/2022 FEE FOR SERVICE Arlen Huizar 01/16/2024 1 [place] [facility] ([place]) Arlen Zhaoant [id number] Arlen [place] Notes Date Note Type Note Provider Name and Address Organization Details Recorded Time 07/28/2022 text/html pre-employment RSOALINDA MURDOCK MD [address] [place], [address], [place] - [facility] 07/28/2022 09:44:49 01/16/2024 text/html 23 y/o female returns to follow on injury sustained at work 4 days ago. She was hit by a thrown chair and was having neck and head pain. She states her pain is minimal now, and she is ready to go back to work.She was able to rest the last 3 days MICKI Brower [address] [place], [address], [place] - [facility] 01/16/2024 08:25:46 OBGyn Episode No OBEpisode recorded.
[2025-01-17 08:27] VITALS: BP 112/72; BMI 29.6
--- NOTE | 2025-01-17 08:27 | A.OFFVIS_ITS ---
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 Doing well with director of materials management concerns: Nexplanon in place for 5 years. Ireegular bleeding x 2 yrs. HMB, prolonged bleeding. Gained over 100lb. w/use. UTP-neg ative. Using condoms regularly. Does not want a . History Idiopathic intracranial hypertension and migraines w/aura. Uncertain of what she would like to use in the future. Currently is sexually active. She denies vaginal itching or irritation. STI screening offered; she accepts. She tries to eat healthy and stays active with exercise. Denies family history of breast, ovarian or colon cancer. PFSH Medical History Migraine with aura Abnormal uterine bleeding (AUB) Hyperthyroidism Asthma IIH (idiopathic intracranial hypertension) Surgical History H/O tooth extraction No pertinent past surgical history Family History Mother Mental health problem Substance abuse Father Mental health problem Social History Housing: House Alcohol intake: current Alcohol intake frequency: a few times a month Patient Tobacco Use Status: Never used Tobacco Tobacco use type: Smokeless Tobacco e-Cigarette/Vaping Use: Currently Using Substance Use Type: Marijuana service: No Current occupational status: employed and student Current occupational exposures/hazards: No Sexual orientation: Straight/Heterosexual Gender identity: Female Cognitive needs: No Hearing needs: No Vision needs: Yes (contacts/glasses) Female Reproductive History Menstrual Date of last menstrual period: 01/04/25 control method: implanted (Nexplanon 12/24/2019) Total pregnancies: 0 Review of Systems Const All systems reviewed & are unremarkable except as noted in HPI and below Reports as per HPI Eyes Reports no additional complaints ENT Reports no additional complaints Card Reports no additional complaints Resp Reports no additional complaints GI Reports as per HPI and Reports no additional complaints Reports as per HPI Musc Reports no additional complaints Skin/Breast Reports as per HPI Neuro Reports no additional complaints Psych Reports no additional complaints Endo Reports no additional complaints Ishmael/Lymph Reports no additional complaints Aller/Immun Reports no additional complaints Physical Exam Vital Signs: Last Vital Signs BP 112/72 01/17/25 08:27 BMI result Body Mass Index 29.6 Const General: cooperative, healthy appearing, no acute distress, well developed and alert Orientation/consciousness: patient oriented x3 HEENT Head: Yes normal to inspection Eyes General: appearance normal, both eyes and all related structures Neck Neck: Yes normal visual inspection Thyroid: Thyroid normal Chest Chest palpation & inspection: normal inspection of the chest and other (no puckering, dimpling, peau de orange, retraction, discharge, masses) Breast/axilla inspection: normal inspection of the breasts Breast/axilla palpation: normal palpation of the breasts Resp Effort & Inspection: normal respiratory effort GI Inspection: Yes normal to inspection Palpation (GI): Soft to palpation Rectal Exam - Female: deferred General: Yes bladder normal to palpation External Female Exam: normal external appearance and normal appearance of the urethra Speculum Exam - Vagina: normal appearance of the vagina, normal palpation and normal vaginal discharge Speculum Exam - Cervix: normal appearance of the cervix and normal palpation Bimanual exam- vagina & uterus: normal bimanual exam, normal palpation, uterine size normal, bladder normal to palpation, normal palpation and non-tender Bimanual Exam- Adnexa, other: no masses Skin General skin exam: no rashes or lesions noted Rashes: no rashes Neuro General: patient oriented x3 Cognition (Neuro): normal cognition Extrem General: Yes normal to inspection Psych Attitude: cooperative Thought process: Normal thought process present Results AMB Test Urine AMB Test Urine Negative Last Edit by NOEMI Luong on 01/17/25 08:38 Results Reviewed Results Reviewed: Laboratory Last Values [facility] Clinic Negative 01/17/25 08:38 Assessment & Plan Assessment & Plan (1) Abnormal uterine bleeding (AUB): Code(s): N93.9 - Abnormal uterine and vaginal bleeding, unspecified Category: Medical Plan: Workup for irregular bleeding to include cultures, Pap smear, and pelvic ultrasound follow up pending results for final plan of care. The patient expressed understanding and agreement with the plan of care. All of her questions and concerns were addressed to the best of my ability. Total time I personally spent on visit and management today: ?20 minutes. Time spent included review of pertinent office notes in the electronic health record; review of laboratory, review of personal family medical history; discussing diagnosis and plan of care with the patient; documenting the encounter in the EMR. (2) Encounter for well woman exam with routine gynecological exam: Code(s): Z01.419 - Encounter for gynecological examination (general) (routine) without abnormal findings Category: Medical Plan Discussed: Current recommendations for pap smears per ASCCP guidelines. Breast awareness and periodic breast exams. Maintain a healthy lifestyle including a well balanced diet and routine exercise . Use condoms for STI and prevention. Patient verbalizes understanding and agrees to the plan of care. She was given opportunity to ask questions and all questions were answered to the best of my ability. RTO in one year for annual director of materials management examination. Follow up for control consult with a Nexplanon removal. This note is constructed using voice recognition software. While every effort has been made to ensure accuracy, collections clerk errors may have been included. Orders: Orders US pelvic and transvaginal Today N93.9 - Abnormal uterine and vaginal bleeding, unspecified Pap Smear Today Z01.419 - Encounter for gynecological examination (general) (routine) without abnormal findings Bacterial Vaginosis Panel Today Z20.2 - Contact with and (suspected) exposure to infections with a predominantly sexual mode of transmission CT NG by PCR Today Z20.2 - Contact with and (suspected) exposure to infections with a predominantly sexual mode of transmission AMB HCG Urine Test Today Z32.02 - Encounter for test, result negative Coding Level of Care Code New Pt Level 2 (61363) New Pt Prev Care 18-39yr(12121 Diagnoses Abnormal uterine bleeding (AUB) N93.9 Encounter for well woman exam with routine gynecological exam Z01.419
== END 2025-01-17 09:18 | disposition home or self-care (01) ==
LOC: HO.HWS 08:17
PROVIDERS: PCP Nurse Practitioner Family; Visit Provider Advanced Practice Midwife
DX: N93.9 Abnormal uterine and vaginal bleeding, unspecified (principal); Z01.419 Encounter for gynecological examination (general) (routine) without abnormal findings; Z32.02 Encounter for pregnancy test, result negative
CPT/HCPCS: 99212; 99385; 99459

== ENCOUNTER 2025-01-17 08:16 | Outpatient (REF) | payer BC, SELFPAY ==
[2025-01-17 14:03] LABS: Bacterial Vaginosis PCR POSITIVE (Negative); Candida Group PCR NOT DETECTED (Not Detect); Candida glab krusei PCR NOT DETECTED (Not Detect); Trichomonas vaginalis PCR DETECTED (Not Detect)
[2025-01-17 14:34] LABS: CT PCR NOT DETECTED (Not Detect.); NG PCR NOT DETECTED (Not Detect.)
== END 2025-01-17 08:17 | disposition home or self-care (01) ==
LOC: HO.LNP 08:16
PROVIDERS: PCP Nurse Practitioner Family; Visit Provider Advanced Practice Midwife
DX: Z01.419 Encounter for gynecological examination (general) (routine) without abnormal findings (principal); Z20.2 Contact with and (suspected) exposure to infections with a predominantly sexual mode of transmission
CPT/HCPCS: 81025; 81515; 87491; 87591; 88175

== ENCOUNTER 2025-02-05 08:45 | Outpatient (AMB) | payer BC, SELFPAY ==
[2025-02-05 08:49] VITALS: BP 122/70; BMI 29.1
--- NOTE | 2025-02-05 08:49 | A.OFFVIS_ITS ---
Vital Signs 02/05/25 08:49 Height 5 ft 2 in Weight 159 lb BMI 29.1 BP 122/70 Blood Pressure Location Rt brachial Position Sitting Intake Visit Reasons: INP- Benign intracranial hypertension Intake Note: Patient referred in house for benign intracranial hypertension Allergies No Known Allergies Allergy (Verified 02/05/25 08:51) Medication List - Last Reconciled 02/05/25 by Shanita Hernandez MD albuterol sulfate 90 mcg/actuation 2 puffs inhalation Q6H PRN etonogestrel (Nexplanon) subdermal magnesium oxide 400 mg PO DAILY HPI Comments Details: 24y/o female with Benign Intracranial hypertension diagnosed January 2021 at [facility] . she lost 100lbs since then and has been seeing local company hazmat driver regularly . she has a follow up in April 2025. she feels good now. she has occasional headaches and migraines Migraines 1 /2 mths and ibuprofen and tylenol helps. The migraines are biparietal sharp pounding pain with nausea, photophobia, phonophobia , used to have visual aura but since her LP in 2020 no visual auras. It can last 1- 2 days. she also gets milder headaches 1/week - all over pain - responds immediately to tylenol. she also has insomnia - take 1-2 hrs to sleep and wake sup multiple times No snoring she used to have nightmares when she was younger [facility] Medical History (Updated 02/05/25 @ 09:55 by Shanita Hernandez MD) Migraine Benign intracranial hypertension Migraine with aura Abnormal uterine bleeding (AUB) Hyperthyroidism Asthma IIH (idiopathic intracranial hypertension) Surgical History H/O tooth extraction No pertinent past surgical history Family History Mother Mental health problem Substance abuse Father Mental health problem Social History Housing: House Alcohol intake: current Alcohol intake frequency: a few times a month Patient Tobacco Use Status: Never used Tobacco Tobacco use type: Smokeless Tobacco e-Cigarette/Vaping Use: Currently Using Substance Use Type: Marijuana service: No Current occupational status: employed and student Current occupational exposures/hazards: No Sexual orientation: Straight/Heterosexual Gender identity: Female Cognitive needs: No Hearing needs: No Vision needs: Yes (contacts/glasses) Physical Exam Vital Signs: Last Vital Signs BP 122/70 02/05/25 08:49 BMI result Body Mass Index 29.1 Const General: cooperative, healthy appearing, comfortable and no acute distress Nutritional Appearance: average body habitus Orientation/consciousness: patient oriented x3 Eyes Pupils: Equal, round and reactive pupils present Neuro General: patient oriented x3, gait normal, tone normal, moves all extremities and no focal motor deficits Cranial nerves: Yes Facial sensation intact/muscles of mastication intact, Yes Equal, round and reactive pupils present, Yes Bilaterally intact EOM present, Yes Nystagmus not present, Yes Normal facial strength present and Yes Midline tongue present Cognition (Neuro): normal cognition Gait exam (Neuro): Normal gait present Motor exam (neuro): 5/5 motor strength present throughout and Normal motor muscle tone present throughout Deep tendon reflexes (DTR's): Right triceps reflex intensity grade: 2+, Left triceps reflex intensity grade: 2+, Rt Biceps (C5, C6): 2+, Left biceps reflex intensity grade: 2+, Right brachioradialis reflex intensity grade: 2+, Left brachioradialis reflex intensity grade: 2+, Right patellar reflex intensity grade: 2+ and Left patellar reflex intensity grade: 2+ Coordination: [id number] test normal Assessment & Plan Assessment & Plan (1) Benign intracranial hypertension: Code(s): G93.2 - Benign intracranial hypertension Category: Medical (2) Migraine: Code(s): G43.909 - Migraine, unspecified, not intractable, without status migrainosus Category: Medical Qualifiers: Intractability: not intractable Migraine type: migraine (< 15 days per month) with aura Status migrainosus presence: without status migrainosus Qualified Code(s): G43.109 - Migraine with aura, not intractable, without status migrainosus Plan MRI brain report from [facility] referral for Optic disc evaluation and VF testing Magnesium 400mg qhs Orders: Referrals Ophthalmology Referral G93.2 - Benign intracranial hypertension Medications: New magnesium oxide 400 mg PO DAILY 30 caps 6RF Coding Level of Care Code New Pt Level 4 (31593) Diagnoses Benign intracranial hypertension G93.2 Migraine with aura and without status migrainosus, not intractable G43.109 Intractability: not intractable Migraine type: migraine (< 15 days per month) with aura Status migrainosus presence: without status migrainosus
--- OUTSIDE RECORDS SUMMARY | 2025-02-05 08:56 | XMS_ITS | Encounter Summary ---
Author Organization [facility] Address [address] [place] [address] Phone Care Team Providers Care Senior Teller Name Role Phone Provider, [facility] Primary Care Provider [phone] Reason for Visit * Reason Comments Med Refill Encounter Details Date Type Department Care Team (Late st Contact Info) Description 11/03/2019 Refill [facility] - [address] [address] Barbara Marx MD [address] [facility] [address] [place] [address] Sleep difficulties Social History Tobacco Use Types [...] difficulties documented in this encounter Care Teams Senior Teller Relationship Specialty Start Date End Date Provider, MD Norma [address] [place] [id number] PCP - General Pediatrics 03/16/23 12/07/23 Tutu rAt APRN MUSIC TYPOGRAPHER BS MSN Consulting Physician Nephrology 07/08/21 11/08/24 documented as of this encounter
--- OUTSIDE RECORDS SUMMARY | 2025-02-05 08:56 | XMS_ITS | Data Portability ---
Author Organization [facility] Larose [facility]tha [address] Address [address] [place] [address] Care Team Providers Care Social Media Sr Strategy Manager Name Role Phone LANI REYNA Infrastructure Solutions Architect Unavailable Assessment No assessment recorded. Plan of Treatment Reminders Order Date Submit Date Provider Last Modified By Organization Details Last Modified Time Details Appointments None recorded. Lab None recorded. Referral None recorded. Procedures None recorded. Surgeries None recorded. Imaging None recorded. Medication Orders baclofen 10 mg tablet 2023 024 [id number], [address], [place], [id number], 16:12:53 Patient TargetsNo targets recorded. Patient Instructions Encounter Date Encounter Id Patient Instructions Last Modified By Organization Details Last Modified Time 01/12/2024 [id number] neck pain: care instructions nmakris Not available [...] Details Recorded Time Disorder of thyroid gland 63925833 Active 022 CHANDLER LOZANO null, [place] - [facility] 2 09:05:27 Bipolar disorder 73459474 Active 022 CHANDLER LOZANO null, [place] - [facility] 2 09:06:06 Asthma 628243207 Active 024 Tigist Eustis null, [place] - [facility] 4 12:13:09 Strain of neck muscle 809712555 Active 024 CHARLY HORTA NP [address] [place], [address] , [place] - [facility] 4 12:39:02 Minor head injury 572560447 Active 024 CHARLY HORTA NP [address] [place], [address] , [place] - [facility] 4 12:39:18 Problem Notes None recorded. Medical Equipment None Reported. Allergies Allergen ID Allergen Name Allergen Category Reaction Reaction Severity Criticality Documentation Date Start Date Code Code System Note Provider Name and Address Organization Details Recorded Time 67012 adhesive tape environme nt,medica tion rash Not available low 07/28/2022 [id number] UNK CHANDLER LOZANO null, [place] - [facility] [...] Updated DateTime 4 157.48 cm 36.8 kg/m2 32818.0 7 g 100 % 100 % 67 /min 16 /min 98 [degF] 123 mm[Hg] 82 mm[Hg] Tigistbandar Rubio [place] - [facility] 4 12:14:32 Date Recorded Body height Body mass index (BMI) Body weight Respiratory rate Body temperature Heart rate Oxygen saturation Oxygen saturation in Arterial blood by Pulse oximetry Systolic blood pressure Diastolic blood pressure Provider Name and Address Organization Details Last Updated DateTime 4 157.48 cm 36.8 kg/m2 52895.0 7 g 18 /min 97.7 [degF] 86 [...] Address Organization Details Last Updated DateTime 2 22983.5 8 g 98 % 38.8 kg/m2 157.48 [...] SNOMED-CT Code Diagnosis ICD10 Code Diagnosis Note [id number] _Chic Sosa Agrawal _Chi [facility] [address] [place] [address] 04/05/2020 10:38:35 04/05/2020 13:12:19 [id number] [place] [address] [address] 07/28/2022 08:10:27 07/28/2022 10:02:09 History and physical examination, pre-employment 281892510 Z02.1 [id number] [place] [address] [place] [address] 01/12/2024 11:55:36 01/12/2024 12:56:54 Strain of neck muscle 651573859 S16.1XXA You are being diagnosed with a [...] Dizziness. light headedness Thank you for using [facility] . Please feel free to contact us if you have any questions or concerns. Minor head injury 122525 006 S09.90XA [id number] MICKI GRIER [address] [place] [address] 01/16/2024 08:06:00 01/16/2024 08:26:46 Muscle spasm of cervical muscle of neck 9808422203 04 M62.838 You were seen to follow [...] ID Guarantor Name 01/12/2024 PROMPT PAY Fa [facility] Bhupendra 01/12/2024 1 [place]: [facility] Arlen Zhaoant [id number] Arlen Huizar 01/16/2024 [employer] Arlen Huizar 01/12/2024 1 [facility] [employer] - TOGETHER (MEDICAID HMO) [id number] Arlen Huizar [id number] Arlen Huizar 07/28/2022 FEE FOR SERVICE Arlen Huizar 01/16/2024 1 [place] [facility] Arlen Zhaoant [id number] Arlen Chehalis Notes Date Note Type Note Provider Name and Address Organization Details Recorded Time 07/28/2022 text/html pre-employment ROSALINDA MURDOCK MD [address] [place], [address], [place] - [facility] 07/28/2022 09:44:49 01/16/2024 [...] days MICKI Brower [address] [place], [address], [place] - [facility] 01/16/2024 08:25:46 OBGyn Episode No OBEpisode recorded.
== END 2025-02-05 09:57 | disposition home or self-care (01) ==
PROVIDERS: PCP Nurse Practitioner Family; Visit Provider Psychiatry & Neurology Neurology
DX: G93.2 Benign intracranial hypertension (principal); G43.109 Migraine with aura, not intractable, without status migrainosus
CPT/HCPCS: 99204

== ENCOUNTER 2025-02-07 07:47 | Outpatient (AMB) | payer BC, SELFPAY ==
--- NOTE | 2025-02-07 07:47 | MHC.OFFVIS ---
Vital Signs 02/07/25 07:49 Height 5 ft 2 in Weight 159 lb BMI 29.1 Intake Visit Reasons: 3 weeks jonas Janitorial Assistant Required: No Information Interpreted: non-clinical & clinical Lead Manufacturing Engineering Tech: Lead Manufacturing Engineering Tech Present Accompanied by: Self / Same As Patient Allergies No Known Allergies Allergy (Verified 02/07/25 07:49) HPI Comments Details: Patient is here today for test of cure for Trichomonas. She reports partner was tested was negative and they continue to use condoms consistently. She has completed all her medications and has no concerns. She denies any abnormal discharge, odor, pelvic pain, urinary symptoms. Has a Nexplanon exchange scheduled this month. Has established care with her neurologist for her headaches. PFSH Medical History Migraine Benign intracranial hypertension Migraine with aura Abnormal uterine bleeding (AUB) Hyperthyroidism Asthma IIH (idiopathic intracranial hypertension) Surgical History H/O tooth extraction No pertinent past surgical history Family History Mother Mental health problem Substance abuse Father Mental health problem Social History Housing: House Alcohol intake: current Alcohol intake frequency: a few times a month Patient Tobacco Use Status: Never used Tobacco Tobacco use type: Smokeless Tobacco e-Cigarette/Vaping Use: Currently Using Substance Use Type: Marijuana service: No Current occupational status: employed and student Current occupational exposures/hazards: No Sexual orientation: Straight/Heterosexual Gender identity: Female Cognitive needs: No Hearing needs: No Vision needs: Yes (contacts/glasses) Review of Systems Const All systems reviewed & are unremarkable except as noted in HPI and below Physical Exam Vital Signs: BMI result Body Mass Index 29.1 Const General: cooperative, healthy appearing and no acute distress Orientation/consciousness: patient oriented x3 GI Inspection: Yes normal to inspection Palpation (GI): Soft to palpation and Other GI palpation findings present (Nontender) Rectal Exam - Female: visual inspection normal General: Yes bladder normal to palpation External Female Exam: normal appearance of the urethra Speculum Exam - Vagina: normal appearance of the vagina, normal palpation and normal vaginal discharge Speculum Exam - Cervix: normal appearance of the cervix and normal palpation Bimanual exam- vagina & uterus: normal bimanual exam, normal palpation, uterine size normal, bladder normal to palpation, normal palpation, uterine shape normal and non-tender Bimanual Exam- Adnexa, other: normal adnexae Neuro General: patient oriented x3 Assessment & Plan Assessment & Plan (1) Trichomonas contact, treated: Code(s): Z20.2 - Contact with and (suspected) exposure to infections with a predominantly sexual mode of transmission Plan Test of cure for Trichomonas completed await results for final plan of care. Continue to use condoms consistently. Follow up for Nexplanon exchange. The patient expressed understanding and agreement with the plan of care. All of her questions and concerns were addressed to the best of my ability. This note is constructed using voice recognition software. While every effort has been made to ensure accuracy, bridge builder errors may have been included. Orders: Orders CT NG by PCR Vag/Cerv Today Z20.2 - Contact with and (suspected) exposure to infections with a predominantly sexual mode of transmission Bacterial Vaginosis Panel Today Z20.2 - Contact with and (suspected) exposure to infections with a predominantly sexual mode of transmission Coding Level of Care Code Est Pt Level 3 (87840) Diagnoses Trichomonas contact, treated Z20.2
[2025-02-07 07:49] VITALS: BMI 29.1
--- OUTSIDE RECORDS SUMMARY | 2025-02-07 07:49 | XMS_ITS | Data Portability ---
Author Organization MICKI Larose martha [address] Address [address] [place] [address] Care Team Providers Care Housekeeper Nanny Name Role Phone LANI REYNA Director Banking Unavailable Assessment No assessment recorded. Plan of Treatment Reminders Order Date Submit Date Provider Last Modified By Organization Details Last Modified Time Details Appointments None recorded. Lab None recorded. Referral None recorded. Procedures None recorded. Surgeries None recorded. Imaging None recorded. Medication Orders baclofen 10 mg tablet 2023 024 [id number], [address] [place], [place], [id number], 16:12:53 Patient TargetsNo targets recorded. Patient Instructions Encounter Date Encounter Id Patient Instructions Last Modified By Organization Details Last Modified Time 01/12/2024 [id number] neck pain: care instructions nmakris Not available [...] Details Recorded Time Disorder of thyroid gland 41721120 Active 022 CHANDLER LOZANO null, [place] - [facility] 2 09:05:27 Bipolar disorder 67206278 Active 022 CHANDLER LOZANO null, [place] - [facility] 2 09:06:06 Asthma 978750061 Active 024 Tigist [place] null, [place] - [facility] 4 12:13:09 Strain of neck muscle 858563278 Active 024 CHARLY HORTA NP [address] [place], [address] , [place] - [facility] 4 12:39:02 Minor head injury 320559672 Active 024 CHARLY HORTA NP [address] [place], [address] , [place] - [facility] 4 12:39:18 Problem Notes None recorded. Medical Equipment None Reported. Allergies Allergen ID Allergen Name Allergen Category Reaction Reaction Severity Criticality Documentation Date Start Date Code Code System Note Provider Name and Address Organization Details Recorded Time 72116 adhesive tape environme nt,medica tion rash Not available low 07/28/2022 81544 UNK CHANDLER LOZANO null, [place] - [facility] [...] Updated DateTime 4 157.48 cm 36.8 kg/m2 42755.0 7 g 100 % 100 % 67 [...] Updated DateTime 4 157.48 cm 36.8 kg/m2 14808.0 7 g 18 /min 97.7 [degF] 86 [...] Address Organization Details Last Updated DateTime 2 55043.5 8 g 98 % 38.8 kg/m2 157.48 [...] SNOMED-CT Code Diagnosis ICD10 Code Diagnosis Note [id number] _Chic Sosa Agrawal _[facility] [address] [place] [address] 04/05/2020 10:38:35 04/05/2020 13:12:19 [id number] [place] [address] [address] 07/28/2022 08:10:27 07/28/2022 10:02:09 History and physical examination, pre-employment 697718409 Z02.1 [id number] [place] [address] [place] [address] 01/12/2024 11:55:36 01/12/2024 12:56:54 Strain of neck muscle 460191849 S16.1XXA You are being diagnosed with a [...] Dizziness. light headedness Thank you for using [employer] . Please feel free to contact us if you have any questions or concerns. Minor head injury 356893 006 S09.90XA [id number] MICKI GRIER [address] [place] [address] 01/16/2024 08:06:00 01/16/2024 08:26:46 Muscle spasm of cervical muscle of neck [id number] 04 M62.838 You were seen to follow [...] ID Guarantor Name 01/12/2024 PROMPT PAY Fa [facility] Bhupendra 01/12/2024 1 [place] [facility] [place] [place] Arlen Zhaoant [id number] 19 Arlen Huizar 01/16/[address] [facility] [address] [employer] Arlen Huizar 01/12/2024 1 [facility] [employer] - TOGETHER (MEDICAID HMO) [id number] Arlen Huizar [id number] 1 Arlen Huizar 07/28/2022 FEE FOR SERVICE Arlen Huizar 01/16/2024 1 [place] [facility] ([facility] [place] Arlen Zhaoant [id number] Arlen Page Notes Date Note Type Note Provider Name and Address Organization Details Recorded Time 07/28/2022 text/html pre-employment ROSALINDA MURDOCK MD [address] [place], [address], [place] - [facility] 07/28/2022 09:44:49 01/16/2024 [...] days MICKI Brower [address] [place], [address], [place] - [facility] 01/16/2024 08:25:46 OBGyn Episode No OBEpisode recorded.
--- OUTSIDE RECORDS SUMMARY | 2025-02-07 07:49 | XMS_ITS | Encounter Summary ---
Author Organization [facility] Address [address] [place] [address] Phone Care Team Providers Care Rn Anesthesiology Name Role Phone Provider, [facility] Primary Care Provider [phone] Reason for Visit * Reason Comments Med Refill Encounter Details Date Type Department Care Team (Late st Contact Info) Description 11/03/2019 Refill [facility] - [address] [address] Barbara Marx MD [address] [facility] [address] [place] [address] Sleep difficulties Social History Tobacco Use Types [...] difficulties documented in this encounter Care Teams Rn Anesthesiology Relationship Specialty Start Date End Date Provider, MD Norma [address] [place] [address] PCP - General Pediatrics 03/16/23 12/07/23 Tutu Art APRN GROUNDSKEEPING YARDMAN BS MSN Consulting Physician Nephrology 07/08/21 11/08/24 documented as of this encounter
== END 2025-02-07 08:56 | disposition home or self-care (01) ==
LOC: HO.HWS 07:47
PROVIDERS: PCP Nurse Practitioner Family; Visit Provider Advanced Practice Midwife
DX: Z20.2 Contact with and (suspected) exposure to infections with a predominantly sexual mode of transmission (principal)
CPT/HCPCS: 99213

== ENCOUNTER 2025-02-07 07:47 | Outpatient (REF) | payer BC, SELFPAY ==
[2025-02-07 20:16] LABS: Bacterial Vaginosis PCR NEGATIVE (Negative); Candida Group PCR NOT DETECTED (Not Detect); Candida glab krusei PCR NOT DETECTED (Not Detect); Trichomonas vaginalis PCR NOT DETECTED (Not Detect)
[2025-02-07 21:40] LABS: CT PCR NOT DETECTED (Not Detect.); NG PCR NOT DETECTED (Not Detect.)
== END 2025-02-07 07:48 | disposition home or self-care (01) ==
LOC: HO.LNP 07:47
PROVIDERS: PCP Nurse Practitioner Family; Visit Provider Advanced Practice Midwife
DX: Z20.2 Contact with and (suspected) exposure to infections with a predominantly sexual mode of transmission (principal)
CPT/HCPCS: 81515; 87491; 87591

== ENCOUNTER 2025-02-19 10:36 | Outpatient (AMB) | payer BC, SELFPAY ==
--- NOTE | 2025-02-19 10:48 | A.OFFVIS_ITS ---
Intake Visit Reasons: Nexplanon Removal Ic Design Manager: Ic Design Manager Present (Yovana) Accompanied by: Self / Same As Patient Allergies No Known Allergies Allergy (Verified 02/19/25 10:48) Is last menstrual period known: Yes HPI Comments Details: Patient is here today for Nexplanon removal, history of expiring 5 years ago. History of excessive weight gain with the use of Nexplanon. Has had her menstrual cycles resumed. Currently intimate with the partner implants to use condoms and withdrawal method until she decides which future method she would like. History of migraines with aura and benign intracranial hypertension. [facility] Medical History (Updated 02/19/25 @ 12:36 by Paulina Rogers CNM) Migraine Benign intracranial hypertension Migraine with aura Hyperthyroidism Asthma IIH (idiopathic intracranial hypertension) Surgical History H/O tooth extraction No pertinent past surgical history Family History Mother Mental health problem Substance abuse Father Mental health problem Social History Housing: House Alcohol intake: current Alcohol intake frequency: a few times a month Patient Tobacco Use Status: Never used Tobacco Tobacco use type: Smokeless Tobacco e-Cigarette/Vaping Use: Currently Using Substance Use Type: Marijuana service: No Current occupational status: employed and student Current occupational exposures/hazards: No Sexual orientation: Straight/Heterosexual Gender identity: Female Cognitive needs: No Hearing needs: No Vision needs: Yes (contacts/glasses) Review of Systems Const All systems reviewed & are unremarkable except as noted in HPI and below Endo Reports no additional complaints Physical Exam Const General: cooperative, healthy appearing and no acute distress Extrem General: Yes normal to inspection Left upper extremity: normal to inspection (Nexplanon in place) Psych Appearance: well kempt Attitude: cooperative Thought process: Normal thought process present Office Procedures Contraception Insert/Removal Details Details: Nexplanon Removal Procedure Nexplanon Removal Counseling: The patient was counseled regarding Nexplanon removal procedure risks for: pain, infection bleeding, bruising , swelling scarring, injury to nerves, blood vessels, and surrounding tissue. ?All questions were answered. ?The patient has signed the consent form and desires to proceed with the procedure. Nexplanon Removal Procedure: The patient was placed in a supine position with her left hand resting under her head. The insertion site was located: 8-10cm from the medial epicondyle notch of the humerus, posterior to the sulcus, between the triceps and biceps muscle. The area of the ?implant was identified and the distal tip located. This area was cleansed with an alcohol prep and 1 ml of 1% Lidocaine on a 25 gauge needle and syringe was utilized for adequate anesthesia to the insertion site. After ascertaining adequate anesthesia, the area was prepped with Betadine solution. The skin over the distal tip was incised with a #11 blade scalpel and the capsule was located and entered freeing the implant from the canal. The implant was removed with a gentle tug using a mosquito clamp and removed intact. Direct pressure was applied to the insertion site for hemostasis, minimal bleeding was observed. Steri strips, Tegaderm covering, gauze pads, and Rhoda wrap dressing were secured with paper tape. Nexplanon Removal Post Care Instructions: You may expect mild tenderness, swelling, and bruising from the area. If no allergies, you may use a mild over the counter analgesic like Tylenol or Advil (follow the manufacturers recommendations on dosing and frequency of use). Call the office if any symptoms and including: fever (over 100.4), flu like symptoms, signs of infection-redness, pus drainage, pain (beyond usual healing). Keep the pressure dressing on and clean and dry for 24 hours, then remove it. You may take the steri strips and Tegaderm off in 5-7 days, or sooner if peeling off on its own. The patient tolerated the procedure well and left the office in good condition. This note is constructed using voice recognition software. ?While every effort has been made to ensure accuracy, construction trades teacher errors may have been included. ? 49141 - Removal Assessment & Plan Assessment & Plan (1) Encounter for Nexplanon removal: Code(s): Z30.46 - Encounter for surveillance of implantable subdermal contraceptive Plan Nexplanon removal completed successfully. Counseled regarding her options for control with consideration to medical history. Considering a Mirena or Kyleena IUD, counseled regarding options for both in the differences between the 2, booklet on both devices provided for patient review. Advised to call the office once deciding which IUD she would prefer. Continue with condom use and withdrawal method. The patient expressed understanding and agreement with the plan of care. All of her questions and concerns were addressed to the best of my ability. This note is constructed using voice recognition software. While every effort has been made to ensure accuracy, construction trades teacher errors may have been included. Coding Level of Care Code Procedure Only Diagnoses Encounter for Nexplanon removal Z30.46 CPT Codes Details - Contraception: 58792 - Removal ([id number])
--- OUTSIDE RECORDS SUMMARY | 2025-02-19 11:52 | XMS_ITS | Data Portability ---
Author Organization MICKI Larose martha [address] Address [address] [place] [address] Care Team Providers Care Grease Cup Filler Name Role Phone LANI REYNA Dynamometer Repairer Unavailable Assessment No assessment recorded. Plan of Treatment Reminders Order Date Submit Date Provider Last Modified By Organization Details Last Modified Time Details Appointments None recorded. Lab None recorded. Referral None recorded. Procedures None recorded. Surgeries None recorded. Imaging None recorded. Medication Orders baclofen 10 mg tablet 2023 024 [id number], [address] [place], [place], [phone], 16:12:53 Patient TargetsNo targets recorded. Patient Instructions Encounter Date Encounter Id Patient Instructions Last Modified By Organization Details Last Modified Time 01/12/2024 [id number] neck pain: care instructions nmakris Not available [...] Details Recorded Time Disorder of thyroid gland 39961942 Active 022 CHANDLER LOZANO null, [place] - [facility] 2 09:05:27 Bipolar disorder 48985600 Active 022 CHANDLER LOZANO null, PA - [facility] 2 09:06:06 Asthma 956869680 Active 024 Tigist [place] null, [place] - [facility] 4 12:13:09 Strain of neck muscle 278615256 Active 024 CHARLY HORTA NP [address] [place], [address] , [place] - [facility] 4 12:39:02 Minor head injury 855826154 Active 024 CHARLY HORTA NP [address] [place], [address] , [place] - [facility] 4 12:39:18 Problem Notes None recorded. Medical Equipment None Reported. Allergies Allergen ID Allergen Name Allergen Category Reaction Reaction Severity Criticality Documentation Date Start Date Code Code System Note Provider Name and Address Organization Details Recorded Time 42672 adhesive tape environme nt,medica tion rash Not available low 07/28/2022 72044 UNK CHANDLER LOZANO null, [place] - [facility] [...] Heart rate Respiratory rate Body temperature Systolic And Diastolic Provider Name and Address Organization Details Last Updated DateTime 4 157.48 cm 36.8 kg/m2 64998.0 7 g 100 % 100 % 67 /min 16 /min 98 [degF] 123/82 mm[Hg] Tigist Rubio PA - [facility] 4 12:14:32 Date Recorded Body height Body mass index (BMI) Body weight Respiratory rate Body temperature Heart rate Oxygen saturation Oxygen saturation in Arterial blood by Pulse oximetry Systolic And Diastolic Provider Name and Address Organization Details Last Updated DateTime 4 157.48 cm 36.8 kg/m2 79087.0 7 g 18 /min 97.7 [degF] 86 /min 99 % 99 % 141/91 mm[Hg] Sandra Lopez PA - [facility] 4 08:15:32 Date Recorded Body weight Body mass index (BMI) [Percentile] Per age and sex Body mass index (BMI) Body height Respiratory rate Body temperature Oxygen saturation Oxygen saturation in Arterial blood by Pulse oximetry Heart rate Systolic And Diastolic Provider Name and Address Organization Details Last Updated DateTime 2 47799.5 8 g 98 % 38.8 kg/m2 157.48 cm 16 /min 97.7 [degF] 99 % 99 % 75 /min 119/74 mm[Hg] CHANDLER LOZANO PA - [facility] 2 09:10:36 Social History Question Answer Notes LastModified [...] SNOMED-CT Code Diagnosis ICD10 Code Diagnosis Note [id number] _Leticia Swan Tanja [address] [place] [address] 04/05/2020 10:38:35 04/05/2020 13:12:19 [id number] [place]DA [place]URDOCK [place] [address] [facility] [address] [place] [address] 07/28/2022 08:10:27 07/28/2022 10:02:09 History and physical examination, pre-employment 552595004 Z02.1 [id number] [place] [address] [place] [address] 01/12/2024 11:55:36 01/12/2024 12:56:54 Strain of neck muscle 630406522 S16.1XXA You are being diagnosed with a [...] Dizziness. light headedness Thank you for using [employer] . Please feel free to contact us if you have any questions or concerns. Minor head injury 491955 006 S09.90XA [id number] MICKI GRIER [address] [place] [address] 01/16/2024 08:06:00 01/16/2024 08:26:46 Muscle spasm of cervical muscle of neck 3057519483 04 M62.838 You were seen to follow [...] ID Guarantor Name 01/12/2024 PROMPT PAY Fa lamont Huizar 01/12/2024 1 [place] [facility] [place] [place] Arlen Zhaoant [id number] 19 Arlen Huizar 01/16/2024 [employer] Arlen Huizar 01/12/2024 1 [facility] [employer] - TOGETHER (MEDICAID HMO) [id number] Arlen Huizar [id number] 1 Arlen Huizar 07/28/2022 FEE FOR SERVICE Arlen Huizar 01/16/2024 1 [place] [facility] ([facility] [place] Arlen Huizar [id number] 19 Arlen Hartley Notes Date Note Type Note Provider Name and Address Organization Details Recorded Time 07/28/2022 text/html pre-employment ROSALINDA MURDOCK MD [address] [place], [address], [place] - [facility] 07/28/2022 09:44:49 01/16/2024 [...] days MICKI Brower [address] [place], [address], [place] - [facility] 01/16/2024 08:25:46 OBGyn Episode No OBEpisode recorded.
--- OUTSIDE RECORDS SUMMARY | 2025-02-19 11:52 | XMS_ITS | Encounter Summary ---
Author Organization [facility] Address [address] [place] [address] Phone Care Team Providers Care Fern Cutter Name Role Phone Provider, [facility] Primary Care Provider [phone] Reason for Visit * Reason Comments Med Refill Encounter Details Date Type Department Care Team (Late st Contact Info) Description 11/03/2019 Refill [facility] - [address] [address] Barbara Marx MD [address] [facility] [address] [place] [address] Sleep difficulties Social History Tobacco Use Types [...] difficulties documented in this encounter Care Teams Fern Cutter Relationship Specialty Start Date End Date Provider, MD Norma [address] [place] [address] PCP - General Pediatrics 03/16/23 12/07/23 Tutu Art APRN DIVING JUDGE BS MSN Consulting Physician Nephrology 07/08/21 11/08/24 documented as of this encounter
== END 2025-02-19 11:21 | disposition home or self-care (01) ==
LOC: HO.HWS 10:36
PROVIDERS: PCP Nurse Practitioner Family; Visit Provider Advanced Practice Midwife
DX: Z30.46 Encounter for surveillance of implantable subdermal contraceptive (principal)
CPT/HCPCS: 11982

== ENCOUNTER 2025-02-19 14:01 | Outpatient (REF) | payer BC, SELFPAY ==
--- NOTE | ~2025-02-19 | US_ITS ---
EXAMINATION: US PELVIS TRANSABDOMINAL AND TRANSVAGINAL HISTORY: N93.9 - Abnormal uterine and vaginal bleeding, unspecified COMPARISON: Comparison is made with the prior examination dated 03/07/2019. TECHNIQUE: Transabdominal and endovaginal real-time 2D jackman-scale ultrasound was performed. FINDINGS: Uterus: The uterus is normal in size, measuring 7.5 x 2.3 x 3.5 cm. Myometrium has a normal echotexture. No fibroids are identified. Endometrium: The endometrial stripe measures 1 mm in thickness. Right ovary: The right ovary measures 3.3 x 1.9 x 1.5 cm. The right ovary is normal in size and echotexture. Left ovary: The left ovary measures 6.1 x 4.8 x 5.4 cm. There is a septated left ovarian cyst measuring 5.6 x 5.0 x 5.1 cm. Vascularity is seen within the septum. Pelvic fluid: none. US/US pelvic and transvaginal IMPRESSION: 5.6 x 5.0 x 5.1 cm septated left ovarian cyst. A follow-up examination in 6 weeks, at a different time in the patient's the special cycle, is recommended to document resolution. Electronically signed by: Mohsen Richardson MD 02/19/2025 02:32 PM EDT
== END 2025-02-19 14:02 | disposition home or self-care (01) ==
LOC: HO.HMGCX 14:01
PROVIDERS: PCP Nurse Practitioner Family; Visit Provider Advanced Practice Midwife
DX: Z30.46 Encounter for surveillance of implantable subdermal contraceptive (principal); N93.9 Abnormal uterine and vaginal bleeding, unspecified
CPT/HCPCS: 11982; 76830; 76856

== ENCOUNTER → 2025-02-19 14:04 | Outpatient (BNV) | payer BC, SELFPAY | PROVIDERS: PCP Nurse Practitioner Family; Visit Provider Radiology Diagnostic Radiology | DX: N83.202 Unspecified ovarian cyst, left side (principal) | CPT/HCPCS: 76830; 76856 ==

== ENCOUNTER 2025-02-21 15:13 | Outpatient (AMB) | payer BC, SELFPAY ==
--- NOTE | 2025-02-21 15:22 | A.OFFVIS_ITS ---
Intake Visit Reasons: Ultra sound follow up Allergies No Known Allergies Allergy (Verified 02/19/25 10:48) HPI Comments Details: Patient is here today for a follow up pelvic ultrasound, accompanied by her partner Gaston. She reports pelvic cramping on her left side and midline. Started menses today. [facility] Medical History (Updated 02/21/25 @ 15:30 by Paulina Rogers CNM) Complex ovarian cyst Migraine Benign intracranial hypertension Migraine with aura Hyperthyroidism Asthma IIH (idiopathic intracranial hypertension) Surgical History H/O tooth extraction No pertinent past surgical history Family History Mother Mental health problem Substance abuse Father Mental health problem Social History Housing: House Alcohol intake: current Alcohol intake frequency: a few times a month Patient Tobacco Use Status: Never used Tobacco Tobacco use type: Smokeless Tobacco e-Cigarette/Vaping Use: Currently Using Substance Use Type: Marijuana service: No Current occupational status: employed and student Current occupational exposures/hazards: No Sexual orientation: Straight/Heterosexual Gender identity: Female Cognitive needs: No Hearing needs: No Vision needs: Yes (contacts/glasses) Review of Systems Const All systems reviewed & are unremarkable except as noted in HPI and below Physical Exam Const General: cooperative, healthy appearing and no acute distress Orientation/consciousness: patient oriented x3 GI Inspection: Yes normal to inspection Palpation (GI): Soft to palpation and Other GI palpation findings present (N ontender) Rectal Exam - Female: visual inspection normal General: Yes bladder normal to palpation External Female Exam: normal appearance of the urethra Speculum Exam - Vagina: normal appearance of the vagina, normal palpation, normal vaginal discharge and vaginal bleeding Speculum Exam - Cervix: normal appearance of the cervix and normal palpation Bimanual exam- vagina & uterus: normal bimanual exam, normal palpation, uterine size normal, bladder normal to palpation, normal palpation, uterine shape normal and non-tender Bimanual Exam- Adnexa, other: normal adnexae and tender (Slight cramping sens ation) on the left OB/external & speculum: vaginal bleeding Neuro General: patient oriented x3 Results AMB Test Urine AMB Test Urine Negative Last Edit by Kimsantana Lai BEEF PLUCK TRIMMER on 15:40 AMB Urinalysis, Automated UA Leukoctes Adan/uL Last Edit by Kimsantana Lai BEEF PLUCK TRIMMER on 02/21/25 15:46 UA Nitrite Last Edit by Kimvikas Lai, BEEF PLUCK TRIMMER on 02/21/25 15:46 UA Urobilinogen mg/dL Last Edit by Kimvikas Lai, BEEF PLUCK TRIMMER on 02/21/25 15:46 UA Protein mg/dL Last Edit by Kimvikas Lai, BEEF PLUCK TRIMMER on 02/21/25 15:46 UA pH Last Edit by Kim Tamas[place], BEEF PLUCK TRIMMER on 02/21/25 15:46 UA Blood 3 Nils/uL Last Edit by Kimvikas Lai, BEEF PLUCK TRIMMER on 02/21/25 15:46 UA Specific [facility] 1.005 Last Edit by Kimsantana Lai, BEEF PLUCK TRIMMER on 02/21/25 15:46 UA Ketone Last Edit by Kimsantana Lai, BEEF PLUCK TRIMMER on 02/21/25 15:46 UA Bilirubin mg/dL Last Edit by Kimsantana aLi, BEEF PLUCK TRIMMER on 02/21/25 15:46 UA Glucose mg/dL Last Edit by Kim Tamas[place], BEEF PLUCK TRIMMER on 02/21/25 15:46 Results Reviewed Results Reviewed: [facility] [address] [place] [address] [place] [address] Ultrasound Report Signed Patient: Arlen Huizar MR#: [id number] : 2000 Acct:[id number] Age/Sex: 24 / F ADM Date: 02/19/25 Loc: .[facility] Attending Dr: Paulina Rogers CNM Ordering Physician: Paulina Rogers CNM Date of Service: 02/19/25 Procedure(s): US pelvic and transvaginal Accession Number(s): [id number] cc: Juan David Cuevas-; Paulina Rogers CNM~ EXAMINATION: US PELVIS TRANSABDOMINAL AND TRANSVAGINAL HISTORY: N93.9 - Abnormal uterine and vaginal bleeding, unspecified COMPARISON: Comparison is made with the prior examination dated 03/07/2019. TECHNIQUE: Transabdominal and endovaginal real-time 2D jackman-scale ultrasound was performed. FINDINGS: Uterus: The uterus is normal in size, measuring 7.5 x 2.3 x 3.5 cm. Myometrium has a normal echotexture. No fibroids are identified. Endometrium: The endometrial stripe measures 1 mm in thickness. Right ovary: The right ovary measures 3.3 x 1.9 x 1.5 cm. The right ovary is normal in size and echotexture. Left ovary: The left ovary measures 6.1 x 4.8 x 5.4 cm. There is a septated left ovarian cyst measuring 5.6 x 5.0 x 5.1 cm. Vascularity is seen within the septum. Pelvic fluid: none. US/US pelvic and transvaginal IMPRESSION: 5.6 x 5.0 x 5.1 cm septated left ovarian cyst. A follow-up examination in 6 weeks, at a different time in the patient's the special cycle, is recommended to document resolution. Electronically signed by: Mohsen Richardson MD 02/19/2025 02:32 PM EDT RP Dictated By: Mohsen Richardson MD Signed By: <Electronically signed by Mohsen Richardson MD in OV> 02/19/25 1432 DD/ 1409 TD/TT: 02/19/25 1426 Gum Scoring Machine Operator: Assessment & Plan Assessment & Plan (1) Complex ovarian cyst: Code(s): N83.299 - Other ovarian cyst, unspecified side Category: Medical Plan Counseled regarding findings of: Complex ovarian cyst, which is often benign, and most resolve on their own overtime. Some develop into premalignant or malignant tumors. Limitations of testing for diagnostic purposes. Further monitoring and evaluation is recommended with US, possible CT, or MRI study. If persists, or is indicated (Ca-125, Carbohydrate Antigen 19-9, & Carcinoembryonic Antigen) labs will be ordered and referral to [facility] or general gynecology for MD care if indicated for possible surgical consult. Counseled regarding calling for any immediate concerns and to go to the emergency room if there is increased, sudden pain changes. Pelvic rest. [id number] comfort measures. Discussed risk for ovarian torsion and need for immediate evaluation. Repeat ultrasound in 6 weeks. Follow up in person for test results. All of her questions and concerns were addressed to the best of my ability and shared decision making. She is agreeable to the plan of care. This note is constructed using voice recognition software. While every effort has been made to ensure accuracy, coffee break attendant errors may have been included. Orders: Orders AMB Urinalysis Automated Today R10.2 - Pelvic and perineal pain US pelvic and transvaginal 6 Weeks N83.299 - Other ovarian cyst, unspecified side AMB HCG Urine Test Today Z32.02 - Encounter for test, result negative Coding Level of Care Code Est Pt Level 3 (98171) Diagnoses Complex ovarian cyst N83.299
--- OUTSIDE RECORDS SUMMARY | 2025-02-21 15:55 | XMS_ITS | Data Portability ---
Author Organization MICKI Larose martha [address] Address [address] [place] [address] Care Team Providers Care Supervisor Boat Outfitting Name Role Phone LANI REYNA Mine Safety Manager Unavailable Assessment No assessment recorded. Plan of Treatment Reminders Order Date Submit Date Provider Last Modified By Organization Details Last Modified Time Details Appointments None recorded. Lab None recorded. Referral None recorded. Procedures None recorded. Surgeries None recorded. Imaging None recorded. Medication Orders baclofen 10 mg tablet 2023 024 [id number], [address] [place], [place], [id number], 16:12:53 Patient TargetsNo targets recorded. Patient Instructions Encounter Date Encounter Id Patient Instructions Last Modified By Organization Details Last Modified Time 01/12/2024 [id number] neck pain: care instructions nmakris Not available [...] Details Recorded Time Disorder of thyroid gland 48024952 Active 022 CHANDLER LOZANO null, [place] - [facility] 2 09:05:27 Bipolar disorder 24412019 Active 022 CHANDLER LOZANO null, [place] - [facility] 2 09:06:06 Asthma 567764514 Active 024 Tigist Charlack null, [place] - [facility] 4 12:13:09 Strain of neck muscle 227321430 Active 024 CHARLY HORTA NP [address] [place], [address] , [place] - [facility] 4 12:39:02 Minor head injury 028666325 Active 024 CHARLY HORTA NP [address] [place], [address] , [place] - [facility] 4 12:39:18 Problem Notes None recorded. Medical Equipment None Reported. Allergies Allergen ID Allergen Name Allergen Category Reaction Reaction Severity Criticality Documentation Date Start Date Code Code System Note Provider Name and Address Organization Details Recorded Time 76139 adhesive tape environme nt,medica tion rash Not available low 07/28/2022 48004 UNK CHANDLER LOZANO null, [facility] - [facility] [...] Updated DateTime 4 157.48 cm 36.8 kg/m2 89215.0 7 g 100 % 100 % 67 /min 16 /min 98 [degF] 123/82 mm[Hg] Tigist uRbio PA - [facility] 4 12:14:32 Date Recorded Body height Body mass index (BMI) Body weight Respiratory rate Body temperature Heart rate Oxygen saturation Oxygen saturation in Arterial blood by Pulse oximetry Systolic And Diastolic Provider Name and Address Organization Details Last Updated DateTime 4 157.48 cm 36.8 kg/m2 11650.0 7 g 18 /min 97.7 [degF] 86 [...] Address Organization Details Last Updated DateTime 2 23580.5 8 g 98 % 38.8 kg/m2 157.48 [...] 07/28/2022 09:03:20 meningococcal MCV4P 5 completed CHANDLER LBAKE null, [place] - [facility] 07/28/2022 09:03:20 [...] SNOMED-CT Code Diagnosis ICD10 Code Diagnosis Note [id number] _Leticia Swan Tanja [address] [place] [address] 04/05/2020 10:38:35 04/05/2020 13:12:19 [id number] [place]URDOCK [place] [address] [facility] [place] [address] [place] [address] 07/28/2022 08:10:27 07/28/2022 10:02:09 History and physical examination, pre-employment 400754219 Z02.1 [id number] [place] [address] [place] [address] 01/12/2024 11:55:36 01/12/2024 12:56:54 Strain of neck muscle 839845769 S16.1XXA You are being diagnosed with a [...] Dizziness. light headedness Thank you for using [email or web address] . Please feel free to contact us if you have any questions or concerns. Minor head injury 453920 006 S09.90XA [id number] MICKI GRIER [address] [place] [address] 01/16/2024 08:06:00 01/16/2024 08:26:46 Muscle spasm of cervical muscle of neck 3097691388 04 M62.838 You were seen to follow [...] PAY Fa lamont Huizar 01/12/2024 1 [place] [facility] Arlen Zhaoant [id number] Arlen Huizar 01/16/2024 [employer] Arlen Huizar 01/12/2024 1 [facility] (MEDICAID HMO) [id number] Arlen Huizar [id number] 1 Arlen Huizar 07/28/2022 FEE FOR SERVICE Arlen Huizar 01/16/2024 1 [place] [facility] Arlen Huizar [id number] 19 Arlen Nora Notes Date Note Type Note Provider Name and Address Organization Details Recorded Time 07/28/2022 text/html pre-employment ROSALINDA MURDOCK MD [address] [place], [address], [place] - [facility] 07/28/2022 09:44:49 01/16/2024 [...] days MICKI Brower [address] [place], [address], [place] - [facility] 01/16/2024 08:25:46 OBGyn Episode No OBEpisode recorded.
--- OUTSIDE RECORDS SUMMARY | 2025-02-21 15:55 | XMS_ITS | Encounter Summary ---
Author Organization [facility] Address [address] [place] [address] Phone Care Team Providers Care Medical Tech Name Role Phone Provider, [facility] Primary Care Provider [phone] Reason for Visit * Reason Comments Med Refill Encounter Details Date Type Department Care Team (Late st Contact Info) Description 11/03/2019 Refill [facility] - [address] [address] Barbara Marx MD [address] [facility] [address] [place] [address] Sleep difficulties Social History Tobacco Use Types [...] difficulties documented in this encounter Care Teams Medical Tech Relationship Specialty Start Date End Date Provider, MD Norma [address] [place] [address] PCP - General Pediatrics 03/16/23 12/07/23 Tutu Art APRN TEAM ASSEMBLY LINE MACHINE OPERATOR BS MSN Consulting Physician Nephrology 07/08/21 11/08/24 documented as of this encounter
== END 2025-02-21 15:49 | disposition home or self-care (01) ==
LOC: HO.HWS 15:13
PROVIDERS: PCP Nurse Practitioner Family; Visit Provider Advanced Practice Midwife
DX: Z32.02 Encounter for pregnancy test, result negative (principal); R10.2 Pelvic and perineal pain; N83.299 Other ovarian cyst, unspecified side
CPT/HCPCS: 99213

== ENCOUNTER → 2025-02-21 15:13 | Outpatient (BNVA) | payer BC, SELFPAY | PROVIDERS: PCP Nurse Practitioner Family; Visit Provider Advanced Practice Midwife | DX: N83.292 Other ovarian cyst, left side (principal); Z32.02 Encounter for pregnancy test, result negative; R10.2 Pelvic and perineal pain | CPT/HCPCS: 81003; 81025 ==

== ENCOUNTER 2025-06-10 07:25 | Outpatient (AMB) | payer OTHER, SELFPAY ==
--- OUTSIDE RECORDS SUMMARY | 2025-06-10 07:28 | XMS_ITS | Encounter Summary ---
Author Organization [facility] Address [address] [place] [address] Phone Care Team Providers Care Forming Machine Adjuster Name Role Phone Provider, Norma ANSARI Primary Care Provider [phone] Encounter Details Date Type Department Care Team (Late st Contact Info) Description 03/24/2017 Conversion Encounter [facility] [address] [place] [address] Social History Tobacco Use Types Packs/Day Years [...] on filedocumented in this encounter Care Teams Forming Machine Adjuster Relationship Specialty Start Date End Date Provider, MD Norma [address] [place] [address] PCP - General Pediatrics 03/16/23 12/07/23 Tutu Art APRN ELECTROLOG OPERATOR BS MSN Consulting Physician Nephrology 07/08/21 11/08/24 documented as of this encounter
--- OUTSIDE RECORDS SUMMARY | 2025-06-10 07:28 | XMS_ITS | Encounter Summary ---
Author Organization [facility] Address [address] [place] [address] Phone Care Team Providers Care Practical Nurse Name Role Phone Provider, Norma ANSARI Primary Care Provider [phone] Reason for Visit * Reason Comments Med Refill Encounter Details Date Type Department Care Team ([facility] st Contact Info) Description 04/27/2021 Refill [facility] [address] [address] Barbara Marx MD 193 [facility] 2 [place] [address] Depression with anxiety Social History Tobacco Use [...] disorder documented in this encounter Care Teams Practical Nurse Relationship Specialty Start Date End Date Provider, MD Norma [address] [place] [phone] PCP - General Pediatrics 03/16/23 12/07/23 Tutu Art APRN CLINICAL PSYCHOLOGIST BS MSN Consulting Physician Nephrology 07/08/21 11/08/24 documented as of this encounter
--- OUTSIDE RECORDS SUMMARY | 2025-06-10 07:28 | XMS_ITS | Encounter Summary ---
Author Organization [facility] Address [address] [place] [address] Phone Care Team Providers Care Splitting Machine Operator Name Role Phone Provider, [facility] Primary Care Provider [phone] Reason for Visit * Reason Comments Med Refill Encounter Details Date Type Department Care Team (Late st Contact Info) Description 10/05/2017 Refill [facility] [address] [place] [address] Mell Verde DO [address] [place] [address] Mild persistent asthma without complication (Primary Dx); [...] Dysmenorrhea documented in this encounter Care Teams Splitting Machine Operator Relationship Specialty Start Date End Date Provider, MD Norma [address] [place] [address] PCP - General Pediatrics 03/16/23 12/07/23 Tutu Art APRN TUNNEL ELASTIC OPERATOR CHAINSTITCH BS MSN Consulting Physician Nephrology 07/08/21 11/08/24 documented as of this encounter
--- OUTSIDE RECORDS SUMMARY | 2025-06-10 07:28 | XMS_ITS | Encounter Summary ---
Author Organization [facility] Address [address] [place] [address] Phone Care Team Providers Care Gun Stock Maker Name Role Phone Provider, [facility] Primary Care Provider [phone] Reason for Visit * Reason Comments Med Refill Encounter Details Date Type Department Care Team (Late st Contact Info) Description 05/12/2020 Refill [facility] - [address] [address] Barbara Marx MD [address] [facility] [address] [place] [address] Sleep difficulties Social History Tobacco Use Types [...] difficulties documented in this encounter Care Teams Gun Stock Maker Relationship Specialty Start Date End Date Provider, MD Norma [address] [place] [address] PCP - General Pediatrics 03/16/23 12/07/23 Tutu Art APRN CIRCULAR SHEAR OPERATOR BS MSN Consulting Physician Nephrology 07/08/21 11/08/24 documented as of this encounter
--- OUTSIDE RECORDS SUMMARY | 2025-06-10 07:28 | XMS_ITS | Encounter Summary ---
Author Organization [facility] Address [address] [place] [address] Phone Care Team Providers Care Box Estimator Name Role Phone Provider, [facility] Primary Care Provider [phone] Reason for Visit * Reason Comments Med Refill Encounter Details Date Type Department Care Team ([facility] st Contact Info) Description 12/01/2019 Refill [facility] [address] [place] [address] Barbara Marx MD [address] [facility] [address] [place] [address] Mood disorder of depressed type; Moderate persistent [...] complication documented in this encounter Care Teams Box Estimator Relationship Specialty Start Date End Date Provider, MD Norma [address] [place] [phone] PCP - General Pediatrics 03/16/23 12/07/23 Tutu Art APRN EMBEDDED SYSTEMS DESIGNER BS MSN Consulting Physician Nephrology 07/08/21 11/08/24 documented as of this encounter
--- OUTSIDE RECORDS SUMMARY | 2025-06-10 07:28 | XMS_ITS | Encounter Summary ---
Author Organization [facility] Address [address] [place] [address] Phone Care Team Providers Care Nurse Special Name Role Phone Provider, Norma ANSARI Primary Care Provider [phone] Encounter Details Date Type Department Care Team (Late st Contact Info) Description 05/08/2012 Documentation [facility] [address] [place] [address] Family Medicine, Physician [address] [place] [address] Social History Tobacco Use Types Packs/Day Years [...] on filedocumented in this encounter Care Teams Nurse Special Relationship Specialty Start Date End Date Provider, MD Norma [address] [place] [address] PCP - General Pediatrics 03/16/23 12/07/23 Tutu Art APRN COMPUTER INFORMATION SCIENCE PROFESSOR BS MSN Consulting Physician Nephrology 07/08/21 11/08/24 documented as of this encounter
--- OUTSIDE RECORDS SUMMARY | 2025-06-10 07:28 | XMS_ITS | Encounter Summary ---
Author Organization [facility] Address [address] [place] [address] Phone Care Team Providers Care Public Health Name Role Phone Provider, Norma ANSARI Primary Care Provider [phone] Encounter Details Date Type Department Care Team (Late st Contact Info) Description 09/07/2016 Documentation [facility] [place] [address] [place], [place] [id number] Family Medicine, Physician [address] [place] [address] Social History Tobacco Use Types Packs/Day Years [...] on filedocumented in this encounter Care Teams Public Health Relationship Specialty Start Date End Date Provider, MD Norma [address] [place] [address] PCP - General Pediatrics 03/16/23 12/07/23 Tutu Art APRN CAR RETARDER OPERATOR BS MSN Consulting Physician Nephrology 07/08/21 11/08/24 documented as of this encounter
--- OUTSIDE RECORDS SUMMARY | 2025-06-10 07:28 | XMS_ITS | Encounter Summary ---
Author Organization [facility] Address [address] [place] [address] Phone Care Team Providers Care Attendant Child Activity Name Role Phone Provider, Norma ANSARI Primary Care Provider [phone] Reason for Visit * Reason Comments Med Refill Encounter Details Date Type Department Care Team (Late st Contact Info) Description 08/23/2018 Refill [facility] - [address] [address] Barbara Marx MD Moderate persistent asthma without [...] complication documented in this encounter Care Teams Attendant Child Activity Relationship Specialty Start Date End Date Provider, MD Norma [address] [place] [phone] PCP - General Pediatrics 03/16/23 12/07/23 Tutu Art APRN DIRECTOR INFORMATION SECURITY BS MSN Consulting Physician Nephrology 07/08/21 11/08/24 documented as of this encounter
--- OUTSIDE RECORDS SUMMARY | 2025-06-10 07:28 | XMS_ITS | Clinical Summary ---
Author Organization [facility] Address [address] [place] [address] Phone Care Team Providers Care Police Surgeon Name Role Phone Barbara Marx MD Primary Care Provider [phone] Social History Tobacco Use Types Packs/Day Years Used Date Smoking Tobacco: Never Assessed Education Answer Date Recorded Are you interested in more education? Not on tyson e 12/03/2022 Are you concerned about learning? Not on file 12/03/2022 No 12/03/2022 No 12/03/2022 Digital Access Answer Date Recorded No 01/04/2023 No 01/04/2023 Reliable internet access at home? Not on file 01/04/2023 Device with a working camera? Not on file Comments Unknown Sex and Gender Information Value Date Recorded Sex Assigned at Not on file Legal Sex Female 11:24 AM EDT Gender Identity Not on file Sexual Orientation Not on file Plan of Treatment Not on file Medical Devices Not on file Insurance [facility] [employer] [facility] [place] [facility] [place] [address] [place] [address] [facility]DR[facility] [facility] [place] [facility] [place] [facility] [place] [facility] Care Teams Police Surgeon Relationship Specialty Start Date End Date Barbara Marx MD [email or web address] PCP - General Pediatrics 02/14/20 Additional Source Comments The information contained in this document represents components of the legal health record. It is not the complete legal health record.[facility]
--- OUTSIDE RECORDS SUMMARY | 2025-06-10 07:28 | XMS_ITS | Encounter Summary ---
Author Organization [facility] Address [address] [place] [address] Phone Care Team Providers Care Riveter Portable Machine Name Role Phone Provider, Norma ANSARI Primary Care Provider [phone] Reason for Visit * Reason Comments Med Refill Encounter Details Date Type Department Care Team ([facility] st Contact Info) Description 08/15/2020 Refill [facility] [address] [address] Barbara Marx MD 193 [facility] 2 [place] [address] Seasonal allergic rhinitis due to pollen; Moderate [...] complication documented in this encounter Care Teams Riveter Portable Machine Relationship Specialty Start Date End Date Provider, MD Norma [address] [place] [address] PCP - General Pediatrics 03/16/23 12/07/23 Tutu Art TRACTOR MECHANIC HELPER EMAIL MARKETING COORDINATOR BS MSN Consulting Physician Nephrology 07/08/21 11/08/24 documented as of this encounter
--- OUTSIDE RECORDS SUMMARY | 2025-06-10 07:28 | XMS_ITS | Encounter Summary ---
Author Organization [facility] Address [address] [place] [address] Phone Care Team Providers Care Industrial Therapist Name Role Phone Provider, [facility] Primary Care Provider [phone] Reason for Visit * Reason Comments Med Refill Encounter Details Date Type Department Care Team (Late st Contact Info) Description 07/31/2018 Refill [facility] - [address] [address] Barbara Marx MD Moderate persistent asthma without [...] complication documented in this encounter Care Teams Industrial Therapist Relationship Specialty Start Date End Date Provider, MD Norma [address] [place] [address] PCP - General Pediatrics 03/16/23 12/07/23 Tutu Art APRN PRESIDENT AND CHIEF EXECUTIVE OFFICER BS MSN Consulting Physician Nephrology 07/08/21 11/08/24 documented as of this encounter
--- OUTSIDE RECORDS SUMMARY | 2025-06-10 07:28 | XMS_ITS | Encounter Summary ---
Author Organization [facility] Address [address] [place] [address] Phone Care Team Providers Care Oceanology Teacher Name Role Phone Provider, [facility] Primary Care Provider [phone] Reason for Visit * Reason Comments Med Refill Encounter Details Date Type Department Care Team ([facility] st Contact Info) Description 10/31/2020 Refill [facility] - [address] [address] Barbara Marx MD 193 [facility] [address] [place] [address] Chronic migraine without aura without status migrainosus, [...] intractable documented in this encounter Care Teams Oceanology Teacher Relationship Specialty Start Date End Date Provider, MD Norma [address] [place] [phone] PCP - General Pediatrics 03/16/23 12/07/23 Tutu Art APRN DIRECTOR WORKERS COMPENSATION BS MSN Consulting Physician Nephrology 07/08/21 11/08/24 documented as of this encounter
--- OUTSIDE RECORDS SUMMARY | 2025-06-10 07:28 | XMS_ITS | Encounter Summary ---
Author Organization [facility] Address [address] [place] [address] Phone Care Team Providers Care Boilermaker Mechanic Name Role Phone Provider, Norma ANSARI Primary Care Provider [phone] Encounter Details Date Type Department Care Team (Late st Contact Info) Description 12/16/2017 Conversion Encounter [facility] [address] [address] Social History Tobacco Use Types Packs/Day Years [...] on filedocumented in this encounter Care Teams Boilermaker Mechanic Relationship Specialty Start Date End Date Provider, MD Norma [address] [place] [phone] PCP - General Pediatrics 03/16/23 12/07/23 Tutu Art APRN TUNNEL ELASTIC OPERATOR ZIGZAG BS MSN Consulting Physician Nephrology 07/08/21 11/08/24 documented as of this encounter
--- OUTSIDE RECORDS SUMMARY | 2025-06-10 07:28 | XMS_ITS | Clinical Summary ---
Author Organization [facility] Address [address] [place] [address] Phone Care Team Providers Care Human Intelligence Name Role Phone Unavailable Primary Care Provider [...] planned follow-ups 02/2021 with Neuro/Optho 11/2021: [facility] Adult Neuro- Mild papilledema again on exam-restarted [...] sugar 106 and ALT 44 05/2020: [facility] Pedi Endo consult with Dr Jina Singh. [...] reschedule overdue f/up with [facility]. Lino at [facility] Assessment & Plan (07/09/2019 4:46 PM EST): Needs to reschedule f/up with Dr Lino, will plan repeat fasting labs Assessment & Plan (06/10/2018 5:41 PM EDT): Repeat fasting lipid panel, if consistently abnormal, refer to Cardiology Seasonal allergic rhinitis due to pollen 018 Overview (07/05/2021): Springtime predominant, but 10/2020 skin testing at [facility] + to birch, grass, ragweed, dust mites, [...] flow excellent in office at 450. ( Xg=635 cm) resume ICS with Flovent 110 2 [...] 10 mg with good effect, mild upset, [place] 3s added 03/2019: Changed to Escitalopram for [...] ? Psychiatrist 11/22/19- F/up call placed to [facility] as rica family no contact has been made. 03/2020: GAD7=14 with panic and PHQ9 16 with return of passive SI, ( pt lost her outpt [facility] therapist) Esc increased to 20, Hydroxyzene 5-10 mg PRN, refer to IB 11/06/2020: KNITTED GARMENT FINISHER intake! Assessment & Plan (05/29/2021 7:17 PM EDT): No refill needed on Escitalopram but trial as QHS administration for the next 4 days until first intake appointment with [facility] psychiatry. Arlen to request therapist at [facility], but may receive bridging CBT services as desired with our [facility] team for the next 3 months while waiting. Assessment & Plan (10/09/2020 1:35 PM EST): Continue Escitalopram 20 but recommend pt re-establish her previously very effective, fdc therapy services through [facility] or [facility] provider. Detailed list provided to [...] at this time. Plan refer to new [facility] acute care program for med management assistance. Assessment & Plan (05/05/2020 1:16 PM EDT): Continue Esc at current 20 mg QD, trial Hydroxyzene at 15 mg, then 20mg dose as needed for her PRN anxiety episodes. May also try taking 50 mg=1/2 tab of her current Trazodone as a PRN instead. 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 Doing well enough that no longer makes sense to involve our short term [facility] team. Refer to [facility] Telepsychiatry program with understanding that first [...] do to resume her therapy services through [facility], but for more urgent stabilization will temporize [...] therapy support d/t staff turnover at [facility]. Suggest pt reach out to her previous in-home therapist to see if services could be re-instated given the change in her mood sx and discontinuity of outpatient therapy support.Will discuss with integrated Behavioral health providers, ? Possible temporary support during transition. Assessment & Plan (11/19/2019 3:07 PM EDT): Continue Escitalopram 15 mg QD. Arlen prefers that another call be placed to [facility] to re-request transfer to child psychiatry for fdc care. Assessment & Plan (07/10/2019 8:30 AM [...] but BMI acceleration 2019- refer to [facility] Sleep Med for formal consult Assessment & [...] by family or pt. Refer to [facility] Sleep Med for formal consult Assessment & [...] reach out directly to her Math and Omani teachers as well as her Guidance Counselor. [...] Dysmenorrhea, mood dysregulation and acne concerns at [facility] 12/2017. No FH DVT or BCA, [...] AM EST): Nuvaring poorly tolerated/ineffective- refer to GEAR FINISHER but begin trial Apri in the meantime. [...] 106 10/13/2020 9:52 AM EST Temperature 35.9 C (96.7 F) 10/13/2020 9:52 AM EST Respiratory Rate 18 10/23/2018 10:27 AM EDT [...] Trum enba SCDM 2-dose series) 01/26/2021 07/28/2020 DTaP,Tdap,and Td Vaccines (7 - Td or Tdap) 03/07/2025 03/07/2015, 03/07/2008, 12/21/2006, Additional history exists Influenza Vaccines (#1) 2025 04/26/20 22, 04/15/2021, 04/13/2020, Additional history exists COVID-19 Vaccine (5 - 2024-2 6 season) 2025 06/10/2022, 08/23/2021, 12/23/2020, Additional history exists Hepatitis B Vaccines Completed [...] Completed 03/02/2019, 015 Procedures * Due to [facility] law, this organization might not be sharing sensitive test results. Procedure Name Priority Date/Time Associated Diagnosis Comments CHLAMYDIA AND GONORRHEA, AMPLIFIED Routine 07/09/2019 4:18 PM EST Screen for STD (sexually transmitted disease) from Last 3 Months or Most Recently Relevant to Health Maintenance Results * Due to [place] [employer] law, this organization might not be sharing sensitive test results. * Chlamydia and Gonorrhoea, Amplified (07/09/2019 4:18 PM EST) Chlamydia Trachomatis, DNA Probe NEGATIVE (NEG) [facility] Comment: No Chlamydia Trachomatis RNA detected in this patient's sample (REFERENCE RANGE/NORMAL VALUE: NOT DETECTED) Note: This test uses local government legislator- mediated amplification method to detect rRNA from C. Trachomatis URINE GC AMP PROBE NEGATIVE (NEG) [facility] Comment: No Neisseria Gonorrhoeae RNA detected in this patient's sample (REFERENCE RANGE/NORMAL VALUE: NOT DETECTED) NOTE: This test uses local government legislator-mediated amplification method to detect rRNA from N.Gonorrhoeae. [...] without risk of sexual abuse. Consult the [facility] if needed. Contact phone number . Therapeutic failure or success cannot be determined with the Aptima Combo2 assay since nucleic acid may persist following appropriate antimicrobial therapy. The Centers for Disease Control and Prevention (CDC) recommends confirmatory retesting using culture or a different nucleic acid amplification test when positive results occur, if indicated. Testing performed or reported by [facility], a Service of [facility], [address], [place] [address] Urine 07/09/2019 4:18 PM EST 07/09/2019 8:16 PM EST Barbara Marx MD LAB MICROBIOLOGY - GENERAL SANDRA RAMIREZ Final Result [facility] from Last 3 Months or Most Recently Relevant to Health Maintenance
--- OUTSIDE RECORDS SUMMARY | 2025-06-10 07:28 | XMS_ITS | Encounter Summary ---
Author Organization [facility] Address [address] [place] [address] Phone Care Team Providers Care Roller Stainer Name Role Phone Provider, Norma ANSARI Primary Care Provider [phone] Reason for Visit * Reason Onset Date Comments Med Refill Med Refill 02/20/2020 Encounter Details Date Type Department Care Team (Late st Contact Info) Description 02/19/2020 Refill [facility] - [address] [address] Barbara Marx MD 193 [facility] [address] [place] [address] Seasonal allergic rhinitis due to pollen; Moderate [...] complication documented in this encounter Care Teams Roller Stainer Relationship Specialty Start Date End Date Provider, MD Norma [address] [place] [phone] PCP - General Pediatrics 03/16/23 12/07/23 Tutu Art APRN MODEL MAKER PLASTIC BS MSN Consulting Physician Nephrology 07/08/21 11/08/24 documented as of this encounter
--- OUTSIDE RECORDS SUMMARY | 2025-06-10 07:28 | XMS_ITS | Encounter Summary ---
Author Organization [facility] Address [address] [place] [address] Phone Care Team Providers Care Manager Retail Sales Name Role Phone Provider, [facility] Primary Care Provider [phone] Reason for Visit * Reason Comments Med Refill Encounter Details Date Type Department Care Team (Late st Contact Info) Description 02/12/2020 Refill [facility] - [address] [address] Barbara Marx MD 193 [facility] [address] [place] [address] Seasonal allergic rhinitis due to pollen; Moderate [...] complication documented in this encounter Care Teams Manager Retail Sales Relationship Specialty Start Date End Date Provider, MD Norma [address] [place] [address] PCP - General Pediatrics 03/16/23 12/07/23 Tutu Art APRN BUSINESS MANAGEMENT PROFESSOR BS MSN Consulting Physician Nephrology 07/08/21 11/08/24 documented as of this encounter
--- OUTSIDE RECORDS SUMMARY | 2025-06-10 07:28 | XMS_ITS | Encounter Summary ---
Author Organization [facility] Address [address] [place] [address] Phone Care Team Providers Care Wound Care Coordinator Name Role Phone Provider, [facility] Primary Care Provider [phone] Reason for Visit * Reason Onset Date Comments Med Refill Med Refill 02/20/2020 Encounter Details Date Type Department Care Team (Late st Contact Info) Description 02/20/2020 Refill [facility] [place] [address] [place] [address] Bee Rivas MD [address] [place] [address] Moderate persistent asthma without complication Social History [...] complication documented in this encounter Care Teams Wound Care Coordinator Relationship Specialty Start Date End Date Provider, MD Norma [address] [place] [phone] PCP - General Pediatrics 03/16/23 12/07/23 Tutu Art APRN CUSTOMER PRICING MANAGER BS MSN Consulting Physician Nephrology 07/08/21 11/08/24 documented as of this encounter
--- OUTSIDE RECORDS SUMMARY | 2025-06-10 07:28 | XMS_ITS | Clinical Summary ---
Author Organization [facility] Address [address] [place] [address] Care Team Providers Care Load Mixer Name Role Phone Barbara Marx MD Primary Care Provider [phone] Source Comments Please note that some or [...] so, obtain the minor's consent prior to disclosure.[facility] Allergies Active Allergy Reactions Criticality Noted [...] reschedule overdue f/up with Dr. Lino at [facility] Seasonal allergic rhinitis due to pollen [...] 10 mg with good effect, mild upset, [place] 3s added 03/2019: Changed to Escitalopram for [...] ? Psychiatrist 11/22/19- F/up call placed to [facility] as rica family no contact has been made. 03/2020: GAD7=14 with panic and PHQ9 16 with return of passive SI, ( pt lost her outpt [facility] therapist) Esc increased to 20, Hydroxyzene 5-10 mg PRN, refer to [facility] 11/06/2020: POLICE COMMISSIONER intake! Last Assessment & Plan: Continue Escitalopram 20 but recommend pt re-establish her previously very effective, intermediate card tender therapy services through [facility] or [facility] provider. Detailed list provided to [...] about your child you'd like help w [facility]? Not on file 04/22/2023 Share good news [...] 74 01/22/2021 12:00 PM EDT Temperature 36.8 C (98.2 F) 01/22/2021 12:00 PM EDT Respiratory Rate 16 01/22/2021 12:0 [...] HIV SCREENING 12/20/2015 COVID-19 Vaccine (2 - 2024-2 6 season) 2025 12/02/2020 INFLUENZA (#1) 2025 NIRSEVIMAB VACCINES UNDER 8 MONTHS Aged Out No longer eligible b ased on patient's age to complete this topic Insurance [facility] Tictail [facility] (Attentio) [facility] Tictail [facility] (Attent[employer]) Care Teams Load Mixer Relationship Specialty Start Date End Date Barbara Marx MD 150 [facility] [place] [address] PCP - General General Pediatrics 11/06/20
--- OUTSIDE RECORDS SUMMARY | 2025-06-10 07:28 | XMS_ITS | Encounter Summary ---
Author Organization [facility] Address [address] [place] [address] Phone Care Team Providers Care Die Casting Machine Maintainer Name Role Phone Provider, Norma ANSARI Primary Care Provider Encounter Details Date Type Department Care Team (Late st Contact Info) Description 03/09/2010 Documentation [facility] Family Medicine [address] [place] [address] Family Medicine, Physician [address] [place] [address] Social History Tobacco Use Types Packs/Day Years [...] on filedocumented in this encounter Care Teams Die Casting Machine Maintainer Relationship Specialty Start Date End Date Provider, MD Norma [address] [place] [address] PCP - General Pediatrics 03/16/23 12/07/23 Tutu Art APRN DOMESTIC MAID BS MSN Consulting Physician Nephrology 07/08/21 11/08/24 documented as of this encounter
--- OUTSIDE RECORDS SUMMARY | 2025-06-10 07:28 | XMS_ITS | Encounter Summary ---
Author Organization [facility] Address [address] [place] [address] Phone Care Team Providers Care Loin Puller Name Role Phone Provider, Norma ANSARI Primary Care Provider [phone] Reason for Visit * Reason Comments Med Refill Encounter Details Date Type Department Care Team ([facility] st Contact Info) Description 05/27/2021 Refill [facility] - [address] [address] Barbara Marx MD 193 [facility] 2 [place] [address] Depression with anxiety Social History Tobacco Use [...] disorder documented in this encounter Care Teams Loin Puller Relationship Specialty Start Date End Date Provider, MD Norma [address] [place] [address] PCP - General Pediatrics 03/16/23 12/07/23 Tutu Art APRN SPORT PSYCHOLOGIST BS MSN Consulting Physician Nephrology 07/08/21 11/08/24 documented as of this encounter
--- OUTSIDE RECORDS SUMMARY | 2025-06-10 07:28 | XMS_ITS | Encounter Summary ---
Author Organization [facility] Address [address] [place] [address] Phone Care Team Providers Care Medicare Nurse Name Role Phone Provider, Norma ANSARI Primary Care Provider [phone] Reason for Visit * Reason Comments Med Refill Encounter Details Date Type Department Care Team (Late st Contact Info) Description 08/15/2018 Refill [facility] - [address] [address] Barbara Marx MD Moderate persistent asthma without [...] complication documented in this encounter Care Teams Medicare Nurse Relationship Specialty Start Date End Date Provider, MD Norma [address] [place] [phone] PCP - General Pediatrics 03/16/23 12/07/23 Tutu Art APRN SEASONING SPRAYER BS MSN Consulting Physician Nephrology 07/08/21 11/08/24 documented as of this encounter
--- OUTSIDE RECORDS SUMMARY | 2025-06-10 07:28 | XMS_ITS | Encounter Summary ---
Author Organization [facility] Address [address] [place] [address] Phone Care Team Providers Care Pre Planning Advisor Name Role Phone Provider, [facility] Primary Care Provider [phone] Reason for Visit * Reason Comments Med Refill Encounter Details Date Type Department Care Team (Late st Contact Info) Description 12/22/2019 Refill [facility] - [address] [address] Barbara Marx MD 193 [facility] [address] [place] [address] Depression with anxiety Social History Tobacco Use [...] disorder documented in this encounter Care Teams Pre Planning Advisor Relationship Specialty Start Date End Date Provider, MD Norma [address] [place] [phone] PCP - General Pediatrics 03/16/23 12/07/23 Tutu Art APRN SOLUTIONS OPERATOR BS MSN Consulting Physician Nephrology 07/08/21 11/08/24 documented as of this encounter
--- OUTSIDE RECORDS SUMMARY | 2025-06-10 07:28 | XMS_ITS | Data Portability ---
Author Organization [facility] Larose martha [address] Address [address] [place] [address] Care Team Providers Care Pelletizer Operator Name Role Phone LANI REYNA Scraper Tender Unavailable Assessment No assessment recorded. Plan of Treatment Reminders Order Date Submit Date Provider Last Modified By Organization Details Last Modified Time Details Appointments None recorded. Lab None recorded. Referral None recorded. Procedures None recorded. Surgeries None recorded. Imaging None recorded. Medication Orders baclofen 10 mg tablet 2023 024 [id number], [address] [place], [place], [phone], 16:12:53 Patient TargetsNo targets recorded. Patient Instructions Encounter Date Encounter Id Patient Instructions Last Modified By Organization Details Last Modified Time 01/12/2024 [id number] neck pain: care instructions nmakris Not available [...] Details Recorded Time Disorder of thyroid gland 97854808 Active 022 CHANDLER LOZANO null, [place] - [facility] 2 09:05:27 Bipolar disorder 03675903 Active 022 CHANDLER LOZANO null, [place] - [facility] 2 09:06:06 Asthma 436321065 Active 024 Tigist [place] null, [place] - [facility] 4 12:13:09 Strain of neck muscle 353447684 Active 024 CHARLY HORTA NP [address] [place], [address] , [place] - [facility] 4 12:39:02 Minor head injury 680036449 Active 024 CHARLY HORTA NP [address] [place], [address] , [place] - [facility] 4 12:39:18 Problem Notes None recorded. Medical Equipment None Reported. Allergies Allergen ID Allergen Name Allergen Category Reaction Reaction Severity Criticality Documentation Date Start Date Code Code System Note Provider Name and Address Organization Details Recorded Time 35975 adhesive tape environme nt,medica tion rash Not available low 07/28/2022 CHANDLER LOZANO null, [place] - [facility] [...] verbal numeric rating [Score] - Reported Systolic And Diastolic Provider Name and Address Organization Details Last Updated DateTime 4 157.48 cm 36.8 kg/m2 53357.0 7 g 100 % 100 % 67 /min 16 /min 98 [degF] 6 123/82 mm[Hg] Tigist Rubio [place] - [facility] 4 12:14:32 Date Recorded Body height Body mass index (BMI) Body weight Pain severity - 0-10 verbal numeric rating [Score] - Reported Respiratory rate Body temperature Heart rate Oxygen saturation Oxygen saturation in Arterial blood by Pulse oximetry Systolic And Diastolic Provider Name and Address Organization Details Last Updated DateTime 4 157.48 cm 36.8 kg/m2 32156.0 7 g 2 18 /min 97.7 [degF] [...] Address Organization Details Last Updated DateTime 2 [address].5 8 g 98 % 38.8 kg/m2 157.48 [...] Diagnosis SNOMED-CT Code Diagnosis ICD10 Code Diagnosis IMO Codes Diagnosis Note [id number] [facility] [facility] [address] [place] [address] 04/05/2020 10:38:35 04/05/2020 13:12:19 [id number] [place] [address] [address] [place] [address] 07/28/2022 08:10:27 07/28/2022 10:02:09 History and physical examination, pre-employment 432583658 Z02.1 [id number] [place] [address] [place] [address] 01/12/2024 11:55:36 01/12/2024 12:56:54 Strain of neck muscle 457118289 S16.1XXA You are being diagnosed with a [...] Dizziness. light headedness Thank you for using [employer] . Please feel free to contact us if you have any questions or concerns. Minor head injury 444920 006 S09.90XA [id number] MICKI GRIER [address] [place] [address] 01/16/2024 08:06:00 01/16/2024 08:26:46 Muscle spasm of cervical muscle of neck 0529884445 04 M62.838 You were seen to follow [...] ID Guarantor Name 01/12/[address] [facility] Bhupendra 01/12/2024 1 [facility] (O) Arlen Zhaoant [id number] Arlen Zhaoant 01/16/2024 [employer] Arlen Huizar 01/12/2024 1 [facility] [employer] - TOGETHER (MEDICAID HMO) [id number] Arlen Huizar [id number] 1 Arlen Huizar 07/28/2022 FEE FOR SERVICE Arlen Zhaoant 01/16/2024 1 [place] [facility] (O) Arlen Tripp [id number] 19 Arlen Tripp Notes Date Note Type Note Provider Name and Address Organization Details Recorded Time 07/28/2022 text/html pre-employment ROSALINDA MURDOCK MD [address] [place], [address], [place] - [facility] 07/28/2022 09:44:49 01/12/2024 text/html Neck UCReported by Patient CHARLY HORTA NP [address] [place], [address], [place] - [facility] 01/12/2024 16:14:03 01/16/2024 text/html 23 y/o female returns to follow on injury sustained at work 4 days ago. She was hit by a thrown chair and was having neck and head pain. She states her pain is minimal now, and she is ready to go back to work.She was able to rest the last 3 days MICKI Brower [address] [place], [address], [place] - [facility] 01/16/2024 08:25:46 OBGyn Episode No OBEpisode recorded.
--- OUTSIDE RECORDS SUMMARY | 2025-06-10 07:28 | XMS_ITS | Encounter Summary ---
Author Organization [facility] Address [address] [place] [address] Phone Care Team Providers Care Fishing Tackle Repairer Name Role Phone Provider, Norma ANSARI Primary Care Provider [phone] Encounter Details Date Type Department Care Team (Late st Contact Info) Description 03/09/2010 Documentation [facility] Family Medicine [address] [place] [address] Family Medicine, Physician [address] [place] [address] Social History Tobacco Use Types Packs/Day Years [...] on filedocumented in this encounter Care Teams Fishing Tackle Repairer Relationship Specialty Start Date End Date Provider, MD Norma [address] [place] [address] PCP - General Pediatrics 03/16/23 12/07/23 Tutu Art APRN TECHNICAL ASST BS MSN Consulting Physician Nephrology 07/08/21 11/08/24 documented as of this encounter
--- OUTSIDE RECORDS SUMMARY | 2025-06-10 07:28 | XMS_ITS | Encounter Summary ---
Author Organization [facility] Address [address] [place] [address] Phone Care Team Providers Care Health Insurance Agent Name Role Phone Provider, [facility] Primary Care Provider [phone] Reason for Visit * Reason Comments Med Refill Encounter Details Date Type Department Care Team (Late st Contact Info) Description 11/03/2019 Refill [facility] - [address] [address] Barbara Marx MD [address] [facility] [address] [place] [address] Sleep difficulties Social History Tobacco Use Types [...] difficulties documented in this encounter Care Teams Health Insurance Agent Relationship Specialty Start Date End Date Provider, MD Norma [address] [place] [phone] PCP - General Pediatrics 03/16/23 12/07/23 Tutu Art APRN SOLAR ENERGY SYSTEM INSTALLER BS MSN Consulting Physician Nephrology 07/08/21 11/08/24 documented as of this encounter
--- OUTSIDE RECORDS SUMMARY | 2025-06-10 07:28 | XMS_ITS | Encounter Summary ---
Author Organization [facility] Address [address] [place] [address] Phone Care Team Providers Care Stacker Straightener Name Role Phone Provider, Norma ANSARI Primary Care Provider [phone] Reason for Visit * Reason Comments Med Refill Encounter Details Date Type Department Care Team (Late st Contact Info) Description 02/20/2019 Refill [facility] - [address] [address] Barbara Marx MD Mood disorder of depressed [...] type documented in this encounter Care Teams Stacker Straightener Relationship Specialty Start Date End Date Provider, MD Norma [address] [place] [phone] PCP - General Pediatrics 03/16/23 12/07/23 Tutu Art APRN MECHATRONICS TECHNICIAN BS MSN Consulting Physician Nephrology 07/08/21 11/08/24 documented as of this encounter
--- OUTSIDE RECORDS SUMMARY | 2025-06-10 07:28 | XMS_ITS | Encounter Summary ---
Author Organization [facility] Address [address] [place] [address] Phone Care Team Providers Care Forester Aide Name Role Phone Provider, Norma ANSARI Primary Care Provider [phone] Reason for Visit * Reason Comments Med Refill Encounter Details Date Type Department Care Team (Late st Contact Info) Description 02/19/2019 Refill [facility] - [address] [address] Barbara Marx MD Primary dysmenorrhea Social History [...] Dysmenorrhea documented in this encounter Care Teams Forester Aide Relationship Specialty Start Date End Date Provider, MD Norma [address] [place] [phone] PCP - General Pediatrics 03/16/23 12/07/23 Tutu Art APRN PROVIDER NETWORK ANALYST BS MSN Consulting Physician Nephrology 07/08/21 11/08/24 documented as of this encounter
--- OUTSIDE RECORDS SUMMARY | 2025-06-10 07:28 | XMS_ITS | Encounter Summary ---
Author Organization [facility] Address [address] [place] [address] Phone Care Team Providers Care Final Assembler Boat Name Role Phone Provider, [facility] Primary Care Provider [phone] Reason for Visit * Reason Comments Med Refill Encounter Details Date Type Department Care Team (Late st Contact Info) Description 03/19/2020 Refill [facility] - [address] [address] Barbara Marx MD [address] [facility] [address] [place] [address] Sleep difficulties Social History Tobacco Use Types [...] difficulties documented in this encounter Care Teams Final Assembler Boat Relationship Specialty Start Date End Date Provider, MD Norma [address] [place] [phone] PCP - General Pediatrics 03/16/23 12/07/23 Tutu Art APRN DENTAL HYGIENE ADMINISTRATIVE ASSISTANT BS MSN Consulting Physician Nephrology 07/08/21 11/08/24 documented as of this encounter
--- OUTSIDE RECORDS SUMMARY | 2025-06-10 07:28 | XMS_ITS | Encounter Summary ---
Author Organization [facility] Address [address] [place] [address] Phone Care Team Providers Care Private Client Advisor Name Role Phone Provider, [facility] Primary Care Provider [phone] Reason for Visit * Reason Comments Med Refill Encounter Details Date Type Department Care Team (Late st Contact Info) Description 11/15/2018 Refill [facility] - [address] [address] Barbara Marx MD Acute intractable headache, unspecified [...] type documented in this encounter Care Teams Private Client Advisor Relationship Specialty Start Date End Date Provider, MD Norma [address] [place] [phone] PCP - General Pediatrics 03/16/23 12/07/23 Tutu Art APRN CONCRETER BS MSN Consulting Physician Nephrology 07/08/21 11/08/24 documented as of this encounter
--- OUTSIDE RECORDS SUMMARY | 2025-06-10 07:28 | XMS_ITS | Encounter Summary ---
Author Organization [facility] Address [address] [place] [address] Phone Care Team Providers Care Manager Financial Name Role Phone Provider, [facility] Primary Care Provider [phone] Reason for Visit * Reason Comments Med Refill Encounter Details Date Type Department Care Team ([facility] st Contact Info) Description 01/27/2021 Refill [facility] - [address] [address] Barbara Marx MD [address] [facility] [place] [address] Sleep difficulties Social History Tobacco Use Types [...] difficulties documented in this encounter Care Teams Manager Financial Relationship Specialty Start Date End Date Provider, MD Norma [address] [place] [phone] PCP - General Pediatrics 03/16/23 12/07/23 Tutu Art APRN NURSE PRACTITIONER ADULT BS MSN Consulting Physician Nephrology 07/08/21 11/08/24 documented as of this encounter
--- OUTSIDE RECORDS SUMMARY | 2025-06-10 07:28 | XMS_ITS | Encounter Summary ---
Author Organization [facility] Address [address] [place] [phone] Phone Care Team Providers Care Hand Molder Name Role Phone Provider, [facility] Primary Care Provider [phone] Reason for Visit * Reason Comments Med Refill Encounter Details Date Type Department Care Team ([facility] st Contact Info) Description 04/01/2020 Refill [facility] - [address] [place] [address] Barbara Marx MD [address] [facility] [address] [place] [address] Depression with anxiety; Hypercholesterolemia; Chronic migraine without [...] intractable documented in this encounter Care Teams Hand Molder Relationship Specialty Start Date End Date Provider, MD Norma [address] [place] [phone] PCP - General Pediatrics 03/16/23 12/07/23 Tutu Art APRN ORDER TAKER BS MSN Consulting Physician Nephrology 07/08/21 11/08/24 documented as of this encounter
--- OUTSIDE RECORDS SUMMARY | 2025-06-10 07:28 | XMS_ITS | Encounter Summary ---
Author Organization [facility] Address [address] [place] [address] Phone Care Team Providers Care User Experience Developer Name Role Phone Provider, Norma ANSARI Primary Care Provider [phone] Encounter Details Date Type Department Care Team (Late st Contact Info) Description 03/09/[address] [facility] Family Medicine [address] [place] [address] Family Medicine, Physician [address] [place] [address] Social History Tobacco Use Types Packs/Day Years [...] on filedocumented in this encounter Care Teams User Experience Developer Relationship Specialty Start Date End Date Provider, MD Norma [address] [place] [phone] PCP - General Pediatrics 03/16/23 12/07/23 Tutu Art APRN DISPLAY FABRICATOR BS MSN Consulting Physician Nephrology 07/08/21 11/08/24 documented as of this encounter
[2025-06-10 07:33] VITALS: BP 126/68; PULSE 72; O2SAT 100; BMI 27.5
--- NOTE | 2025-06-10 07:33 | MHC.OFFVIS ---
Vital Signs 06/10/25 07:33 Height 5 ft 2 in Weight 150 lb 2 oz BMI 27.5 BP 126/68 Blood Pressure Location Rt brachial Position Sitting Pulse 72 Pulse Source Pulse Oximeter Pulse Oximetry (%) 100 Oxygen Delivery Method Room Air Intake Visit Reasons: R/S from 07/08/25 6 Months F/U Intake Note: Follow up Benign intracranial hypertension, Migraine Business Services Assistant Required: No Accompanied by: Self / Same As Patient Allergies No Known Allergies Allergy (Verified 06/10/25 07:33) HPI Comments Details: 24y/o female with Benign Intracranial hypertension diagnosed January 2021 at [facility] she lost 100lbs since then and has been seeing director emergency regularly . she was evaluated by assessment expert- was told everything was good. she feels good now. she has occasional headaches and migraines. she has 0-1 headache a week- usually jernigan snot need meds- turning off the light and relaxing helps - lasts 30 min - 1 hr . Migraines 1 /2 mths and ibuprofen and tylenol helps. The migraines are biparietal sharp pounding pain with nausea, photophobia, phonophobia , used to have visual aura but since her LP in 2020 no visual aura. she also has insomnia - she sleeps 4-6 hrs of sleep.But her daytime functioning is good. No snoring she used to have nightmares when she was younger PFSH Medical History Complex ovarian cyst Migraine Benign intracranial hypertension Migraine with aura Hyperthyroidism Asthma IIH (idiopathic intracranial hypertension) Surgical History H/O tooth extraction No pertinent past surgical history Family History Mother Mental health problem Substance abuse Father Mental health problem Social History Housing: House Alcohol intake: current Alcohol intake frequency: a few times a month Patient Tobacco Use Status: Never used Tobacco Tobacco use type: Smokeless Tobacco e-Cigarette/Vaping Use: Currently Using Substance Use Type: Marijuana service: No Current occupational status: employed and student Current occupational exposures/hazards: No Sexual orientation: Straight/Heterosexual Gender identity: Female Cognitive needs: No Hearing needs: No Vision needs: Yes (contacts/glasses) Physical Exam Vital Signs: Last Vital Signs Pulse 72 06/10/25 07:33 BP 126/68 06/10/25 07:33 Pulse Ox 100 06/10/25 07:33 Oxygen Delivery Method Room Air 06/10/25 07:33 BMI result Body Mass Index 27.5 Const General: cooperative, healthy appearing, comfortable and no acute distress Nutritional Appearance: average body habitus Orientation/consciousness: patient oriented x3 Eyes Pupils: Equal, round and reactive pupils present Neuro General: patient oriented x3, gait normal, tone normal, moves all extremities and no focal motor deficits Cranial nerves: Yes Facial sensation intact/muscles of mastication intact, Yes Equal, round and reactive pupils present, Yes Bilaterally intact EOM present, Yes Nystagmus not present, Yes Normal facial strength present and Yes Midline tongue present Cognition (Neuro): normal cognition Gait exam (Neuro): Normal gait present Motor exam (neuro): 5/5 motor strength present throughout and Normal motor muscle tone present throughout Coordination: [id number] test normal Assessment & Plan Assessment & Plan (1) Benign intracranial hypertension: Code(s): G93.2 - Benign intracranial hypertension Category: Medical (2) Migraine: Code(s): G43.909 - Migraine, unspecified, not intractable, without status migrainosus Category: Medical Qualifiers: Migraine type: migraine (< 15 days per month) with aura Status migrainosus presence: without status migrainosus Intractability: not intractable Qualified Code(s): G43.109 - Migraine with aura, not intractable, without status migrainosus Plan Ophthal referral for Optic disc evaluation and VF testing Magnesium 400mg qhs Coding Level of Care Code Est Pt Level 4 (03039) Diagnoses Benign intracranial hypertension G93.2 Migraine with aura and without status migrainosus, not intractable G43.109 Migraine type: migraine (< 15 days per month) with aura Status migrainosus presence: without status migrainosus Intractability: not intractable
== END 2025-06-10 08:00 | disposition home or self-care (01) ==
PROVIDERS: PCP Nurse Practitioner Family; Visit Provider Psychiatry & Neurology Neurology
DX: G93.2 Benign intracranial hypertension (principal); G43.109 Migraine with aura, not intractable, without status migrainosus
CPT/HCPCS: 99214